=== PATIENT | female | born 1940 | race Caucasian/White ===

== ENCOUNTER → 2023-07-28 11:07 | Outpatient (REF) | payer OTHER, SELFPAY | LOC: RAD 11:07 | PROVIDERS: ATTENDING PHYSICIAN Nurse Practitioner Family | DX: M79.604 Pain in right leg (principal) | CPT/HCPCS: 73523; 73564 ==

== ENCOUNTER 2024-02-12 15:20 | Observation (INO) | payer OTHER, SELFPAY ==
--- NOTE | 2024-02-12 09:57 | ED.GENMED ---
History of Present Illness
General
Chief Complaint: Fall
Source: patient
Exam Limitations: none
Time Seen by Provider: 02/12/24 09:57
Nursing documentation reviewed up to this point in time: agreed with
History of Present Illness
History of Present Illness:
Patient is an 83-year-old female brought to the ER by EMS. Patient reports she had a mechanical fall . Patient reports he was brushing her teeth at 2:30 in the morning when her legs gave out. She fell back. She believes she landed on her side
but may have hit her head she denies loss of consciousness she called EMS but did not want come to the ER at that time. She complains now of pain to the left knee. She feels mildly sore to the left head. She is on Eliquis.
She does report that 10 days ago she did drop a case of books on her left foot and she does notice that it is mildly red. She was seen by her family doctor for this yesterday
Past History
Past History
ED Past Medical History: HTN, Hypothyroidism and Other (Knee pain)
ED Past Surgical History: Cholecystectomy
Social History
Tobacco: Former smoker
Alcohol: None
Drug: None
Personal:
Living: alone
Review of Systems
Review of Systems
Allergies reviewed?: Yes
All Other Systems: ROS reviewed and negative except as documented in HPI and ROS
Constitutional: Reports no symptoms; Denies fever, fatigue or chills
Musculoskeletal: Reports other (Patient complains of left knee pain)
Skin: Reports no symptoms
Neurological: Reports other (sore to back of head )
Psychiatric: Reports no symptoms
Phy Exam
General Physical Exam
General Presentation: no apparent distress
General age: appears stated age
General Skin: warm and dry
General Habitus: elderly
General Mental: alert
General Hydration: appears well hydrated
Neurological Exam
Neurological Exam: alert and oriented x3
Musculoskeletal Exam
Musculoskeletal Exam: other (Left knee appears swollen pain with range of motion; toes/left foot red in color )
Course
Orders/Labs/Results
Orders:
Orders
02/12/24 10:08
CT Cervical Spine W/o Iv Contr Urgent
Comment:
Reason For Exam: trauma
CT Head W/o Iv Contrast Urgent
Comment:
Reason For Exam: trauma
02/12/24 10:56
Knee, Left 4 or More Views [CR Knee - Left 4 Or More View*] Urgent
Comment:
Reason For Exam: trauma
02/12/24 13:12
Complete Blood Count/With Diff Urgent
Comprehensive Metabolic Panel Urgent
02/12/24 13:15
Case Management Consult ONCE
Case Management Consult: Discharge Planning
Requested By:: PT/FAMILY
Comment: pt lives alone ; daughter would like someone to talk to her about going into move assisted
living
Abnormal Lab Results
02/12/24
13:12
RDW 14.7 H %
(11.5-14.5)
MPV 11.0 H fL
(7.4-10.4)
Lymphocytes % 17.6 L %
(20.5-51.1)
BUN 20 H mg/dl
(7-17)
Glucose 108 H mg/dl
(70-99)
02/12/24 13:12
02/12/24 13:12
Vital Signs
Initial and Last Documented VS:
Initial Vital Signs
Temp Pulse Resp BP Pulse Ox
98.1 F 82 16 148/92 94
02/12/24 10:04 02/12/24 10:04 02/12/24 10:04 02/12/24 10:04 02/12/24 10:04
Last Documented Vital Signs
Temp Pulse Resp BP Pulse Ox
98.1 F 80 16 152/97 96
02/12/24 10:04 02/12/24 12:00 02/12/24 12:00 02/12/24 12:00 02/12/24 13:01
MDM/Problems Addressed
Differential Diagnosis Includes:
Not limited to head injury, intracranial hemorrhage, knee fracture versus knee sprain
MDM/Problems Addressed:
Patient is an 83-year-old female who was brought by EMS. Patient lives alone and describes mechanical fall around 231 while brushing her teeth. EMS did come to scene at that time but she did not want to come to the ER. She however presented to
the ER because she was unable to bear weight. She complains of left knee pain. She is obvious swelling on exam. She complains of mild soreness to head. She is on Eliquis she presents awake alert no acute distress able to give full history. CT
head negative. CT neck negative. X-ray shows large left knee joint effusion and chronic osteoarthritis. Patient also has redness to the toes. She reports was recently diagnosed with fungal infection by family doctor. She is not on oral
antibiotics. She denies any fever or chills. White count normal labs unremarkable
Patient was given a knee immobilizer here in the ER however with assistance of walker still unable to bear weight will require admission for ambulatory dysfunction. Daughter did call and is concerned the patient is living on her own and does
request that case management be consulted for discharge planning
Chronic conditions affecting care:
Patient on Eliquis history of CAD hypertension hyperlipidemia [place]
*Radiology
Radiology exam reviewed: radiology read reviewed
*Pulse Oximetry
Patient hypoxic: no
*Critical Care Note
Total Time (30-74mins, 75-104mins- exclusive of procedures): Not Applicable
ED Attending Note
-
Portions of this chart may have been created with voice recognition software.� Occasional wrong word or��sound alike� substitutions may have occurred due to the inherent limitations of voice recognition software.
Discharge Plan
Departure
Patient Disposition: Admit
Date of Disposition: 02/12/24
Time of Disposition: 14:12
Admit to: Med/Surg
Admit to doctor: hospitalist
Presentation/result/management discussed w/ accepting MD/DO: Hospitalist
Patient with high blood pressure during this ER visit?: No
Condition: Fair
Covid-19: Not Applicable
Discharge Problem:
Knee sprain, Ambulatory dysfunction
Prescriptions:
No Action
levothyroxine 75 MCG tablet
75 mcg PO DAILY
pantoprazole 40 MG tablet,delayed release (DR/EC)
40 mg PO DAILY Qty: 30 2RF
potassium chloride [Klor-Con M20] 20 MEQ tablet,ER particles/crystals
20 meq PO QPM
multivitamin with folic acid [Tab-A-Marybeth] 1 TABLET tablet
1 tab PO MOWEFR@1800
furosemide 40 MG tablet
40 mg PO DAILY@1200
atorvastatin 40 MG tablet
40 mg PO QPM
acetaminophen [Genapap] 325 MG tablet
650 mg PO QIDPRN PRN (Reason: mild pain)
carvedilol 3.125 MG tablet
3.125 mg PO BID
docusate sodium [Colace] 100 MG capsule
100 mg PO BIDPRN PRN (Reason: constipation)
lisinopril 2.5 MG tablet
2.5 mg PO DAILY@1200
polyethylene glycol 3350 17 GRAMS powder in packet
17 grams PO DAILY 0RF
oxycodone-acetaminophen 5 MG/325 MG tablet
1 tab PO Q4HPRN PRN (Reason: severe pain) Qty: 15 0RF
apixaban [Eliquis] 5 MG tablet
5 mg PO BID Qty: 70 0RF
Rx Instructions:
2 tabs (10mg) twice daily until 11/8 am, then 1 tab (5mg) twice daily starting 11/8 pm.
aspirin 81 MG tablet,delayed release (DR/EC)
81 mg PO DAILY Qty: 30 0RF
cyclobenzaprine 10 MG tablet
5 mg PO TID 0RF
loratadine 10 MG tablet
10 mg PO DAILY 0RF
prednisone 20 mg tablet
40 mg PO DAILY 5 Days Qty: 10 0RF
Referrals:
Alyssa Miller DO [Family Provider] -
Interventions
Interventions:
*Risk Screen - Suicide Last Done: 02/12/24 10:04
*General Assessment Last Done: 02/12/24 10:04
*Neglect/Abuse Screening Last Done: 02/12/24 10:04
ED- Fall Risk Assessment Last Done: 02/12/24 10:38
*ED COVID-19 Vaccine History Last Done: 02/12/24 10:38
ED-Musculoskeletal Assessment Last Done: 02/12/24 10:37
ED- Neurological Assessment Last Done: 02/12/24 10:37
ED-Skin Assessment Last Done: 02/12/24 10:37
Discharge Date and Time
Print Language: SETSWANA
[2024-02-12 10:04] VITALS: BP 148/92
[2024-02-12 12:00] VITALS: BP 152/97
[2024-02-12 13:24] LABS: % Basophils 0.6 % (0-2); % Eosinophils 2.2 % (0-6); % Immature Granulocytes 0.2 % (0-0.5); % Lymphocytes 17.6 % (20.5-51.1); % Monocytes 6.3 % (1.7-9.3); % Neutrophils 73.1 % (42.2-75.2); Absolute Basophils 0.1 10^3/uL (0-0.2); Absolute Eosinophils 0.2 10^3/uL (0-0.7); Absolute Lymphocytes 1.5 10^3/uL (1.2-3.4); Absolute Monocytes 0.5 10^3/uL (0.1-0.6); Absolute Neutrophils 6.3 10^3/uL (1.4-6.5); Hematocrit 39.4 % (37.0-47.0); Hemoglobin 13.2 g/dL (12.0-16.0); Mean Corp Hgb Conc. 33.5 g/dL (33.0-37.0); Mean Corpuscular Hgb 30.7 pg (27.0-31.0); Mean Corpuscular Volume 91.6 fL (81.0-99.0); Nucleated Red Blood Cells % 0 %; Platelet Count 155 10^3/uL (130-400); Red Cell Dist. Width 14.7 % (11.5-14.5); White Blood Cell Count 8.6 10^3/uL (4.8-10.8)
[2024-02-12 13:41] LABS: ALT (SGPT) 19 U/L (0-35); AST (SGOT) 27 U/L (14-36); Albumin 3.9 g/dl (3.5-5.0); Alkaline Phosphatase 103 U/L (38-126); Blood Urea Nitrogen 20 mg/dl (7-17); Calcium 9.7 mg/dl (8.4-10.2); Carbon Dioxide 28 mmol/L (22-30); Chloride 105 mmol/L (98-107); Glucose 108 mg/dl (70-99); Potassium 3.7 mmol/L (3.5-5.1); Sodium 142 mmol/L (135-145); Total Bilirubin 1.1 mg/dl (0.2-1.3); Total Protein 6.3 g/dl (6.3-8.2); eGFR > 60.00
[2024-02-12 14:00] VITALS: BP 118/83
--- NOTE | 2024-02-12 14:48 | HPS.HSE ---
Family Physician
-
Family Physician: Alyssa Miller
Chief Complaint
-
Fall
History of Present Illness
83-year-old woman who had a mechanical fall. She reports that she was brushing her teeth at 2:30 in the morning when her legs gave out. She states that she landed on her side, and she denies loss of consciousness. She called EMS but did not want
come to the ER at that time. For family later brought her in. She complains now of pain to the left knee. She is on Eliquis. She also reports that 10 days ago she dropped a case of books on her left foot and since than it is red. She was seen
by her family doctor for this yesterday, and was prescribed an antifungal for it. She reports that she urinates often because of being on an diuretic.
Medical History
Past Medical History
Past Medical History: Reports Other
Additional Past Medical History:
Essential HTN,
Hypothyroidism
Knee pain
Cholecystectomy
Ambulatory dysfunction
Acute deep vein thrombosis (DVT) of popliteal vein of left lower extremity
Primary osteoarthritis of both knees
Uses walker
Hyperlipemia
Cardiomyopathy
[place], acute, non ST segment elevation
Past Surgical History: Reports None
Social History
Tobacco: Non-smoker
Alcohol: None
Drug: None
Living: Alone
Family History
Family History: Not pertinent
Allergies / Home Medications
Allergies reflects when Allergies were last updated in [facility].
Home Medications with original date entered in [facility]
Allergy/Medication List:
Allergies
Allergy/AdvReac Type Severity Reaction Status Date / Time
codeine Allergy Unknown Verified 02/12/24 10:09
tramadol Allergy Unknown Verified 02/12/24 10:09
Home Medications
levothyroxine 75 mcg tablet 75 mcg PO DAILY Thyroid 06/22/17
atorvastatin 40 mg tablet 40 mg PO QPM High cholesterol 03/31/21
carvedilol 3.125 mg tablet 3.125 mg PO BID Blood pressure 03/31/21
furosemide 40 mg tablet 20 mg PO BID Fluid retention/Swelling 03/31/21
lisinopril 2.5 mg tablet 2.5 mg PO DAILY@1200 Blood pressure 03/31/21
multivitamin with folic acid 400 mcg tablet (Tab-A-Marybeth) 1 tab PO MOWEFR@1800 Supplement 03/31/21
aspirin 81 mg tablet,delayed release 81 mg PO DAILY #30 tabs 04/01/21
apixaban 5 mg tablet (Eliquis) 2.5 mg PO BID 02/12/24
ascorbic acid (vitamin C) 500 mg chewable tablet (Vitamin C) 1,000 mg PO DAILY 02/12/24
biotin 10,000 mcg chewable tablet (Hair, Skin and Nails (biotin)) 10,000 mcg PO DAILY 02/12/24
cholecalciferol (vitamin D3) 25 mcg (1,000 unit) tablet (Vitamin D3) 25 mcg PO DAILY 02/12/24
methenamine-sodium salicylate 162 mg-162.5 mg tablet (AZO Urinary Tract Defense) 1 tab PO DAILY 02/12/24
potassium chloride 20 mEq tablet,extended release 20 meq PO QPM 02/12/24
terbinafine HCl 250 mg tablet 250 mg PO DAILY 02/12/24
vitamins A,C,W-eyiv-xlteov 2,148 mcg-113 mg-45 mg-17.4 mg tablet (PreserVision AREDS) 1 tab PO BID 02/12/24
Review of Systems
-
History Source: Patient
A 12 point ROS was completed and negative except as noted: Yes
Musculoskeletal: Reports See HPI
Physical Exam
Vital Signs
Vital Signs
Temp Pulse Resp BP Pulse Ox
98.1 F 85 16 118/83 94
02/12/24 10:04 02/12/24 14:17 02/12/24 14:17 02/12/24 14:00 02/12/24 14:15
Physical Exam
General: Well Developed, Well Nourished, No Apparent Distress and Obese
HEENT: NormoCephalic, Nose Appears Normal and Ears Appear Normal
Respiratory: Clear
Cardiac: S1/S2 and Regular Rhythm
GI: Soft, Non Tender and Non Distended
Musculoskeletal: No Clubbing, No Cyanosis and No Edema
Skin: Warm, Dry and Rash (red toes on left foot)
Neuro: Awake, Alert and Oriented
Psych: Calm
Laboratory Results
-
02/12/24 13:12
02/12/24 13:12
Laboratory Results
Total Bilirubin 1.1 mg/dl (0.2-1.3) 02/12/24 13:12
AST 27 U/L (14-36) 02/12/24 13:12
ALT 19 U/L (0-35) 02/12/24 13:12
Alkaline Phosphatase 103 U/L (38-126) 02/12/24 13:12
Data Reviewed
-
Lab Data: Labs Reviewed by me
Impression/Plan
-
IMPRESSION:
83 woman with ambulatory disfunction. She normally walks with a walker. She fell last night when not using her walker. Her knee is swollen and sumner cannot walk.
PLAN:
1. ambulatory dysfunction
PT consult
Rehab placement likely needed
2. Recent foot injury
Continue outpt plan
Full code
VCD for DVTp
--- NOTE | 2024-02-12 15:18 | CM ---
CM met with pt bedside
Pt resides alone in a 2SH with ramp entrance through garage
Pt has a stairglide to 2nd floor
Pt notes independence with her ADLs with use of a WW- she has 2x, one on each floor
Pt is independent with her ADls, she does not drive
Family assist with errands and transport
No financial insecurities
Pt is a 2x resulting in blended family, family daughters ( 3 biological)
Pt notes her sister/Alyssa Buchanan is POA [phone]
Requested copy of POA for chart- noted her family will bring in a copy
CM consulted for assisted living resources- list provided
Conference call with pt and dtr/Natty
Pt's goal is to stay safe at home
Dtr requesting PT/OT and dc planning resources once appropriate
Explained role of CM and responsibilities
CM will continue to follow for dc planning
Discharge Disposition- home, follow for higher needs
[2024-02-12 16:34] VITALS: BP 151/83; BMI 35.3
[2024-02-12] MEDS: TYLENOL 650 MG PO ×2 (17:07→23:43)
[2024-02-12] MEDS: LASIX 20 MG PO (17:07)
[2024-02-12] MEDS: LIPITOR 40 MG PO (17:07)
[2024-02-12] MEDS: KCL 20 MEQ PO (17:07)
--- NOTE | 2024-02-12 17:36 | PTCARENOTE ---
Pt was received from ED at 1630. Pt is AAOx3, VSS. Pt was pulled over to the unit bed. Left knee immobilizer in place. Care plan reviewed and pt in understanding.
[2024-02-12] MEDS: ELIQUIS 2.5 MG PO (19:46)
[2024-02-12] MEDS: COREG 3.125 MG PO (19:46)
[2024-02-12] MEDS: OCUVITE SOFTGEL 1 CAP PO (19:46)
[2024-02-12] MEDS: DESENEX/MITRAZOL/ZEASORB 1 APPLIC TOPICAL (19:48)
[2024-02-12] MEDS: ROXICODONE 5 MG PO ×2 (20:08→23:44)
[2024-02-12 23:54] VITALS: BP 102/56
--- NOTE | 2024-02-13 03:13 | PTCARENOTE ---
earlier in shift pt expressed pain in left knee unrelieved by Tylenol- said she has tolerated oxycodone in the past- security systems installer gave order- given x2- see mar
[2024-02-13] MEDS: SYNTHROID 75 MCG PO (05:16)
[2024-02-13] MEDS: ROXICODONE 5 MG PO ×4 (05:16→19:31)
[2024-02-13] MEDS: LASIX 20 MG PO ×2 (05:16→15:00)
[2024-02-13 06:00] VITALS: BMI 35.5
[2024-02-13] MEDS: ASPIR LOW (ENTERIC COATED) 81 MG PO (07:13)
[2024-02-13] MEDS: COREG 3.125 MG PO ×2 (07:13→19:25)
[2024-02-13] MEDS: OCUVITE SOFTGEL 1 CAP PO ×2 (07:13→19:25)
[2024-02-13] MEDS: VITAMIN C 1000 MG PO (07:13)
[2024-02-13] MEDS: VITAMIN D3 (cholecalciferol) 25 MCG PO (07:13)
[2024-02-13] MEDS: ELIQUIS 2.5 MG PO ×2 (07:14→19:25)
[2024-02-13] MEDS: DESENEX/MITRAZOL/ZEASORB 1 APPLIC TOPICAL ×2 (07:15→19:25)
[2024-02-13 07:55] VITALS: BP 119/75
[2024-02-13 07:59] LABS: Hematocrit 36.9 % (37.0-47.0); Hemoglobin 12.3 g/dL (12.0-16.0); Mean Corp Hgb Conc. 33.3 g/dL (33.0-37.0); Mean Corpuscular Hgb 29.9 pg (27.0-31.0); Mean Corpuscular Volume 89.6 fL (81.0-99.0); Mean Platelet Volume 11.7 fL (7.4-10.4); Platelet Count 161 10^3/uL (130-400); Red Blood Cell Count 4.12 10^6/uL (4.20-5.40); White Blood Cell Count 8.2 10^3/uL (4.8-10.8)
[2024-02-13 08:18] LABS: Blood Urea Nitrogen 18 mg/dl (7-17); Calcium 9.1 mg/dl (8.4-10.2); Carbon Dioxide 27 mmol/L (22-30); Chloride 103 mmol/L (98-107); Estimated Creatinine Clearance 68 ml/min; Glucose 101 mg/dl (70-99); Potassium 4.1 mmol/L (3.5-5.1); Sodium 141 mmol/L (135-145); eGFR > 60.00
--- NOTE | 2024-02-13 09:02 | W.PN.HOSP.TC ---
Today's Communication/Plan
-
Pain control. Ortho consult. X-ray of the foot.
Assessment / Plan
Assessment / Plan
Physical exam:
General: Well Developed, Well Nourished and No Apparent Distress
HEENT: Normocephalic, Atraumatic and Moist Mucous Membranes
Respiratory: Clear to Auscultation; Negative Wheezes, Rales or Rhonchi
Cardiac: Regular Rhythm and S1/S2
GI: Soft, Nontender and Nondistended
Musculoskeletal: Left knee tender, decreased range of motion, no erythema or warmth. No Clubbing, No Cyanosis. Erythema around the toes area, no warmth, mild tenderness.
Neuro: Awake, Alert and Oriented
Psych: Calm
A/P:
Left knee pain and effusion:
Likely osteoarthritis probably trauma related rule out hemarthrosis.
No evidence of septic arthritis
Orthopedic consult-discussed with Ortho via [facility] text
Continue pain control
PT OT eval recommend skilled rehab
automotive sales manager for discharge disposition
Fall and ambulatory dysfunction:
CT of the head unremarkable
PT eval as above
Left foot pain:
Recent trauma to the left foot
Mild erythema unclear if trauma or developing infection but monitor for signs of cellulitis
Started on terbinafine as outpatient for fungal toes
Will obtain an x-ray of the left foot
Hypertension:
Continue home antihypertensives.
Monitor blood pressure and adjust medications accordingly.
Hyperlipidemia:
Continue home statins
CAD:
Continue current anti-ischemic regimen
Chest pain-free
Chronic diastolic CHF:
Continue oral diuretic and potassium replacement
Continue GDMT including beta-blockers and CORRIE inhibitor
Monitor ins and outs and daily weight
DVT:
Continue anticoagulation
Hypothyroidism:
Continue thyroid replacement
DVT prophylaxis:
Eliquis
CODE STATUS:
Full code
Anticipated Discharge: 24 - 48 hours
Subjective/Interval History
-
Date of Service: February 13, 2024
Patient complains of left knee pain and also to minor degree the right knee as well. Afebrile
Objective Data
-
Labs:
Laboratory Results
02/13/24
06:24
WBC 8.2
Hgb 12.3
Hct 36.9 L
Plt Count 161
Sodium 141
Potassium 4.1
Chloride 103
Carbon Dioxide 27
BUN 18 H
Creatinine 0.8
Glucose 101 H
Calcium 9.1
Vital Signs:
Vital Signs
Temp Pulse Resp BP Pulse Ox
97.9 F 63 16 119/75 92
02/13/24 07:55 02/13/24 07:55 02/13/24 07:55 02/13/24 07:55 02/13/24 07:55
I&O
02/12/24 02/13/24 02/14/24
06:59 06:59 06:59
Intake Total 960 / 960
Output Total 200 / 200
Balance 760 / 760
[2024-02-13] MEDS: ZESTRIL 2.5 MG PO (11:29)
[2024-02-13 12:45] VITALS: BP 133/76; PULSE 71; O2SAT 96
[2024-02-13 12:58] VITALS: BP 133/76; PULSE 70; O2SAT 96
[2024-02-13] MEDS: SENOKOT-S 1 TABLET PO (14:06)
[2024-02-13 15:00] VITALS: BP 111/62
[2024-02-13] MEDS: TYLENOL 1000 MG PO (17:29)
[2024-02-13] MEDS: LIPITOR 40 MG PO (17:30)
[2024-02-13] MEDS: KCL 20 MEQ PO (17:30)
[2024-02-13 23:14] VITALS: BP 117/55
--- NOTE | 2024-02-13 23:31 | PTCARENOTE ---
pt in deep sleep with shallow breathing- consistently 88-90% on room air- 2 liters oxygen placed
[2024-02-14] MEDS: ROXICODONE 5 MG PO ×2 (00:20→05:41)
[2024-02-14] MEDS: TYLENOL 1000 MG PO ×3 (00:20→17:23)
[2024-02-14 03:00] VITALS: BP 120/87
[2024-02-14] MEDS: SYNTHROID 75 MCG PO (04:57)
[2024-02-14] MEDS: LASIX 20 MG PO ×2 (05:41→16:18)
[2024-02-14 06:00] VITALS: BMI 35.6
--- NOTE | 2024-02-14 06:32 | PTCARENOTE ---
Addendum entered by Omid Adames RN 02/14/24 07:00:
pt feels better- having some belching- no more chest pressure
Original Note:
pt c/o chest pressure in middle of chest vs indigestion- said she had indigestion like this her last NV. reported to cellophane wrapping examiner- ekg done along with cardiac enamel- cellophane wrapping examiner also ordered Protonix and maalox- and evaluated ekg- labs still pending-bp 167/81
[2024-02-14] MEDS: MAALOX 30 ML PO (06:39)
[2024-02-14] MEDS: PROTONIX 40 MG PO (06:57)
--- NOTE | 2024-02-14 06:57 | CON.ORTHO ---
Consultation
-
Date/Time Consultation Requested: 02/13/2024 @ 9:32 AM
Date/Time Consultation Performed: 02/14/2024 @ 6:30 AM
Requesting Provider: Carl Cloud MD
Performing Provider: Jaiden Mcallister PA-C for Dr. Antony Good
Reason for Consultation: Left Knee Pain and Effusion
Consultation - Orthopedics
History
Orthopedic Surgery Note
CC: Left Knee Pain and Effusion
HPI: The patient is a 83-year-old female with left knee pain and swelling. The patient reports sustaining a mechanical fall on 02/11/2024. She reports that she was brushing her teeth at 2:30 in the morning when her legs gave out. She
states that she landed on her side. She reports that she did not land directly onto her knee. She reports gradual onset of left knee pain after her fall. She reports that she may have been crawling on her knees attempting to get off of the ground.
She denies any loss of consciousness. Patient lives alone. She ambulates with a walker for assistance. She called EMS and was transferred to ED due to inability to bear weight. Patient is on Eliquis. She reports a history of osteoarthritis
about her bilateral knees. X-rays were performed and were negative for acute fracture or dislocation. She denies any groin pain. She denies any hip pain. Orthopedic surgery was consulted regarding left knee pain and swelling. She denies any
constitutional symptoms.
PMH/PSH: Essential HTN, Hypothyroidism, Knee pain, Cholecystectomy, Ambulatory dysfunction, Acute deep vein thrombosis (DVT) of popliteal vein of left lower extremity, Primary osteoarthritis of both knees, Uses walker, Hyperlipemia, Cardiomyopathy,
[place], acute, non ST segment elevation.
Medications: Reviewed.
Family History: Family history was reviewed. Noncontributory.
Social history: Nonsmoker, no illicit drugs
Exam
General appearance: Pleasant. No acute distress.
Head: Normocephalic/atraumatic
Nose: No lesions or discharge.
Skin: No obvious rashes or open wounds about left knee
Lungs: No audible wheezing, no cough or sputum production
Musculoskeletal:
LLE (Left Knee):
Physical examination of the left knee reveals knee immobilizer intact. This was taken down for further evaluation. Skin is intact without open wounds. She is able to perform SLR. Moderate-sized intra-articular effusion appreciated. No erythema,
warmth, or ecchymosis. Active range of motion 0 to 90 degrees. Diffuse TTP about left knee. Positive medial joint line tenderness. Positive lateral joint line tenderness. No hip pain with logroll. Calf is soft and nontender. Patient is
neurovascularly intact distally.
Imaging:
Xrays: CR Knee - LEFT 4 or More View* was obtained at [facility] on 02/12/2024 and was made available for my review today. Impression: 1) Large left knee joint effusion. 2) Severe chronic osteoarthritis in the lateral and patellofemoral
compartments. 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 4) Diffuse bone demineralization.
Assessment: 83-year-old female with left knee pain and effusion s/p mechanical fall. Patient is on Eliquis.
Plan:
- After obtaining verbal consent, and confirming laterality, the patient's LEFT knee was sterilely prepped with alcohol and with a 60 cc syringe and 18-gauge needle approximately 35 cc of milena blood was aspirated.
- Hemarthrosis likely secondary to trauma exacerbated by Eliquis use vs. internal derangement secondary to mechanical fall.
- Her left knee is diffusely tender to palpation. She is unable to weight-bear. Will proceed with CT scan of the left knee without contrast to rule out occult fracture. Recommend continuing with knee immobilizer until CT scan is completed and
reviewed.
- Orthopedic surgery will continue to follow along. Please reach out with any questions or concerns.
Allergies / Home Medications
Allergy/AdvReac Type Severity Reaction Status Date / Time
codeine Allergy Unknown Verified 02/12/24 10:09
tramadol Allergy fainting Verified 02/12/24 16:15
�Medication �Instructions �Recorded
levothyroxine 75 mcg tablet 75 mcg PO DAILY Thyroid 06/22/17
atorvastatin 40 mg tablet 40 mg PO QPM High cholesterol 03/31/21
carvedilol 3.125 mg tablet 3.125 mg PO BID Blood pressure 03/31/21
furosemide 40 mg tablet 20 mg PO BID Fluid 03/31/21
retention/Swelling
lisinopril 2.5 mg tablet 2.5 mg PO DAILY@1200 Blood pressure 03/31/21
multivitamin with folic acid 400 1 tab PO MOWEFR@1800 Supplement 03/31/21
mcg tablet (Tab-A-Marybeth)
aspirin 81 mg tablet,delayed 81 mg PO DAILY #30 tabs 04/01/21
release
acetaminophen 650 mg 1,300 mg PO [id number] PRN mild pain 02/12/24
tablet,extended release
apixaban 5 mg tablet (Eliquis) 2.5 mg PO BID Blood Clot 02/12/24
Prevention/Tx
ascorbic acid (vitamin C) 500 mg 1,000 mg PO DAILY Supplement 02/12/24
chewable tablet (Vitamin C)
biotin 10,000 mcg chewable tablet 10,000 mcg PO DAILY Supplement 02/12/24
(Hair, Skin and Nails (biotin))
cholecalciferol (vitamin D3) 25 25 mcg PO DAILY Supplement 02/12/24
mcg (1,000 unit) tablet (Vitamin
D3)
methenamine-sodium salicylate 162 1 tab PO DAILY Urinary Issue 02/12/24
mg-162.5 mg tablet (AZO Urinary
Tract Defense)
potassium chloride 20 mEq 20 meq PO QPM Electrolyte Repletion 02/12/24
tablet,extended release
terbinafine HCl 250 mg tablet 250 mg PO DAILY Infection 02/12/24
vitamins A,C,S-mldy-jvwkzl 2,148 1 tab PO BID Supplement 02/12/24
mcg-113 mg-45 mg-17.4 mg tablet
(PreserVision AREDS)
Vital Signs / Lab Results
Temp Pulse Resp BP Pulse Ox
98.1 F 85 16 117/55 95
02/13/24 23:14 02/13/24 23:14 02/13/24 23:14 02/13/24 23:14 02/13/24 23:31
02/13/24 06:24
[2024-02-14 06:59] LABS: Blood Urea Nitrogen 24 mg/dl (7-17); Calcium 8.8 mg/dl (8.4-10.2); Carbon Dioxide 30 mmol/L (22-30); Chloride 101 mmol/L (98-107); Estimated Creatinine Clearance 49 ml/min; Glucose 94 mg/dl (70-99); Magnesium 1.8 mg/dl (1.6-2.3); Potassium 4.2 mmol/L (3.5-5.1); Sodium 139 mmol/L (135-145); eGFR 49.86
[2024-02-14 07:04] LABS: Troponin I < 0.012 ng/ml
[2024-02-14 07:30] VITALS: BP 126/75
[2024-02-14] MEDS: ELIQUIS 2.5 MG PO (07:46)
[2024-02-14] MEDS: VITAMIN C 1000 MG PO (07:46)
[2024-02-14] MEDS: COREG 3.125 MG PO ×2 (07:46→19:58)
[2024-02-14] MEDS: OCUVITE SOFTGEL 1 CAP PO ×2 (07:46→19:58)
[2024-02-14] MEDS: DESENEX/MITRAZOL/ZEASORB 1 APPLIC TOPICAL ×2 (07:47→19:58)
[2024-02-14] MEDS: ASPIR LOW (ENTERIC COATED) 81 MG PO (07:47)
[2024-02-14] MEDS: VITAMIN D3 (cholecalciferol) 25 MCG PO (07:47)
[2024-02-14 08:26] VITALS: BP 126/75
[2024-02-14] MEDS: SENOKOT-S 1 TABLET PO (11:51)
[2024-02-14] MEDS: ZESTRIL 2.5 MG PO (11:51)
--- NOTE | 2024-02-14 12:11 | CM ---
CM spoke with Thelma's daughter, Elisha, via telephone. She does not want her mother returning directly home, as she is not safe to be alone at this time and needs rehabilitation. SNF is appropriate and recommended by PT/OT.
CM attempted to meet with Thelma, however unable to at the time; will return later when Thelma is able to converse and discuss d/c plan.
Per daughter, Thelma has been at [facility] in the past. Referral made for consideration. Pt's primary insurance is [employer], so Alfredo Akers will look at her coverage to determine if she has an out of network benefit and can be considered for admission.
CM to continue to follow.
--- NOTE | 2024-02-14 12:56 | W.PN.UPDATE ---
Update Note
Progress Note Update
CT scan negative for occult fracture involving the left knee. Recommend PT/OT as tolerated. Pain control per primary team. May discontinue knee immobilizer. She may follow-up with Orthopedics as an outpatient for her left knee osteoarthritis.
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 Differential diagnosis includes atypical osteoporosis and osteolytic metastasis. Recommend work-up per primary team.
--- NOTE | 2024-02-14 14:40 | W.PN.HOSP.TC ---
Today's Communication/Plan
-
see note
Assessment / Plan
Assessment / Plan
1. Left knee hemarthrosis associated with Eliquis use
Mechanical fall
-Underwent bedside arthrocentesis by Ortho team and drainage of 35 cc of milena blood
-Likely traumatic hemarthrosis with Eliquis use
-Follow-up CT of knee showing some arthritic changes and some diffuse medullary lytic lesions
-Ortho surgery cleared for weightbearing as tolerated on left knee, likely will require rehab placement due to pain limiting weight bearing
2. Left foot pain:
-Recent trauma to the left foot
-Mild erythema unclear if trauma or developing infection but monitor for signs of cellulitis
-Started on terbinafine as outpatient for fungal toes
-Left foot xr did not show any fracture
3. Lytic lesion of bone
-Incidental finding on CT scan of left knee
-Full body bone scan ordered
-No previous history of malignancy except small skin cancer
-Oncology evaluation requested as well
4. Essential Hypertension:
-Continue home antihypertensives.
-Monitor blood pressure and adjust medications accordingly.
5. h/o LE DVT
- in and has been on eliquis after that
Hyperlipidemia
CAD
Chronic diastolic CHF - no signs of flare up
Hypothyroidism:
DVT prophylaxis:Eliquis
CODE STATUS:Full code
Total time spent : 51 mins
Anticipated Discharge: 24 - 48 hours
Subjective/Interval History
-
Date of Service: February 14, 2024
Having left knee pain
Complaining of left foot pain as well
Afebrile overnight
Objective Data
-
Labs:
Laboratory Results
02/14/24
06:30
Sodium 139
Potassium 4.2
Chloride 101
Carbon Dioxide 30
BUN 24 H
Creatinine 1.1 H
Glucose 94
Calcium 8.8
Vital Signs:
Vital Signs
Temp Pulse Resp BP Pulse Ox
97.4 F 70 24 106/57 92
02/14/24 07:30 02/14/24 11:51 02/14/24 07:30 02/14/24 11:51 02/14/24 07:30
I&O
02/13/24 02/14/24 02/15/24
06:59 06:59 06:59
Intake Total 960 / 960 1800 / 1800
Output Total 200 / 200 200 / 200
Balance 760 / 760 1600 / 1600
Review of Systems
-
Respiratory: Reports No Symptoms
Cardiac: Reports No Symptoms
Abdomen/GI: Reports No Symptoms
Physical Exam
-
General: Comfortable
HEENT: Negative Oxygen
Respiratory: Clear to Auscultation
Cardiac: Regular Rhythm and S1/S2; Negative Murmur or Rub
GI: Soft, Nontender and Nondistended
Musculoskeletal: No Edema
Neuro: Awake, Alert, Oriented, No Motor Deficits and Nonfocal/Grossly Intact
Psych: Calm
[2024-02-14 15:00] VITALS: BP 120/87
[2024-02-14] MEDS: KCL 20 MEQ PO (17:21)
[2024-02-14] MEDS: THERAGRAN 1 TABLET PO (17:21)
[2024-02-14] MEDS: LIPITOR 40 MG PO (17:21)
[2024-02-14 23:11] VITALS: BP 118/68
[2024-02-15] MEDS: TYLENOL 1000 MG PO ×3 (00:12→17:29)
[2024-02-15] MEDS: SYNTHROID 75 MCG PO (05:58)
[2024-02-15 06:00] VITALS: BMI 35.6
[2024-02-15] MEDS: LASIX 20 MG PO ×2 (06:24→15:57)
[2024-02-15 07:27] VITALS: BP 149/75
[2024-02-15 07:53] LABS: Hematocrit 35.5 % (37.0-47.0); Hemoglobin 11.7 g/dL (12.0-16.0); Mean Corpuscular Hgb 29.6 pg (27.0-31.0); Mean Corpuscular Volume 89.9 fL (81.0-99.0); Mean Platelet Volume 11.2 fL (7.4-10.4); Platelet Count 151 10^3/uL (130-400); Red Blood Cell Count 3.95 10^6/uL (4.20-5.40); Red Cell Dist. Width 15.1 % (11.5-14.5); White Blood Cell Count 5.9 10^3/uL (4.8-10.8)
[2024-02-15 08:39] LABS: Blood Urea Nitrogen 21 mg/dl (7-17); Calcium 9.1 mg/dl (8.4-10.2); Carbon Dioxide 30 mmol/L (22-30); Chloride 103 mmol/L (98-107); Estimated Creatinine Clearance 54 ml/min; Glucose 93 mg/dl (70-99); Potassium 4.3 mmol/L (3.5-5.1); Sodium 140 mmol/L (135-145)
[2024-02-15] MEDS: ASPIR LOW (ENTERIC COATED) 81 MG PO (08:53)
[2024-02-15] MEDS: OCUVITE SOFTGEL 1 CAP PO ×2 (08:53→20:40)
[2024-02-15] MEDS: VITAMIN C 1000 MG PO (08:53)
[2024-02-15] MEDS: COREG 3.125 MG PO ×2 (08:54→20:40)
[2024-02-15] MEDS: VITAMIN D3 (cholecalciferol) 25 MCG PO (08:54)
[2024-02-15] MEDS: DESENEX/MITRAZOL/ZEASORB 1 APPLIC TOPICAL ×2 (09:00→20:39)
--- NOTE | 2024-02-15 09:04 | CON.ONC ---
Impression
Impression
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
metastasis.
Plan
Plan
CT showed medullary lytic foci, most pronounced within the visualized distal portion of the femur. Full body bone scan ordered, pending results.
SPEP and FLC ordered, pending results
Status post mechanical fall and arthrocentesis. Continue to monitor for swelling or changes in pain.
Continue medical care per primary team.
Patient History
History of Present Illness
Patient is an 83-year-old female with past medical history of hypertension, hypothyroidism, ambulatory dysfunction, DVT, cardiomyopathy, SC, OA of both knees presenting to [facility] after mechanical fall in the middle of the night. She is
currently on Eliquis. Patient underwent arthrocentesis, with 35 cc of milena blood removed from left knee. CT of knee showing some arthritic changes and some medullary lytic foci, most pronounced within the visualized distal portion of the femur,
but negative for fracture. Ongoing concern of atypical osteoporosis versus osteolytic metastasis.
She reports bilateral swelling in both knees which is now reduced. She reports no nausea, vomiting, diarrhea, change in appetite, shortness of breath, chest pain. She does states she has some constipation. She states she smoked cigarettes when
she was younger, now stopped, drinks only on holidays. She had skin cancer in the right upper arm. Her mother had dermatomyositis, father had a cecal cancer, brother had non-Hodgkin's lymphoma.
Past-Medical/Surgical History
Essential HTN,
Hypothyroidism
Knee pain
Cholecystectomy
Ambulatory dysfunction
Acute deep vein thrombosis (DVT) of popliteal vein of left lower extremity
Primary osteoarthritis of both knees
Hyperlipemia
Cardiomyopathy
SC, acute, non ST segment elevation
Patient Medication
�Medication �Instructions �Recorded �Confirmed �Last Taken �Type
levothyroxine 75 mcg tablet 75 mcg PO DAILY Thyroid 06/22/17 02/12/24 02/11/24 History
atorvastatin 40 mg tablet 40 mg PO QPM High cholesterol 03/31/21 02/12/24 02/11/24 History
carvedilol 3.125 mg tablet 3.125 mg PO BID Blood pressure 03/31/21 02/12/24 02/11/24 History
furosemide 40 mg tablet 20 mg PO BID Fluid 03/31/21 02/12/24 02/11/24 History
retention/Swelling
lisinopril 2.5 mg tablet 2.5 mg PO DAILY@1200 Blood pressure 03/31/21 02/12/24 02/11/24 History
multivitamin with folic acid 400 1 tab PO MOWEFR@1800 Supplement 03/31/21 02/12/24 02/11/24 History
mcg tablet (Tab-A-Marybeth)
aspirin 81 mg tablet,delayed 81 mg PO DAILY #30 tabs 04/01/21 02/12/24 02/11/24 Rx
release
acetaminophen 650 mg 1,300 mg PO [id number] PRN mild pain 02/12/24 02/12/24 02/12/24 History
tablet,extended release
apixaban 5 mg tablet (Eliquis) 2.5 mg PO BID Blood Clot 02/12/24 02/12/24 02/11/24 History
Prevention/Tx
ascorbic acid (vitamin C) 500 mg 1,000 mg PO DAILY Supplement 02/12/24 02/12/24 02/11/24 History
chewable tablet (Vitamin C)
biotin 10,000 mcg chewable tablet 10,000 mcg PO DAILY Supplement 02/12/24 02/12/24 02/11/24 History
(Hair, Skin and Nails (biotin))
cholecalciferol (vitamin D3) 25 25 mcg PO DAILY Supplement 02/12/24 02/12/24 02/11/24 History
mcg (1,000 unit) tablet (Vitamin
D3)
methenamine-sodium salicylate 162 1 tab PO DAILY Urinary Issue 0902/12/24 02/11/24 History
mg-162.5 mg tablet (AZO Urinary
Tract Defense)
potassium chloride 20 mEq 20 meq PO QPM Electrolyte Repletion 02/12/24 02/12/24 02/11/24 History
tablet,extended release
terbinafine HCl 250 mg tablet 250 mg PO DAILY Infection 02/12/24 02/12/24 02/11/24 History
vitamins A,C,K-auad-tobmsy 2,148 1 tab PO BID Supplement 02/12/24 02/12/24 02/11/24 History
mcg-113 mg-45 mg-17.4 mg tablet
(PreserVision AREDS)
Active Medications
Generic Name Dose Route Start Last Admin
Trade Name Freq PRN Reason Stop Dose Admin
Acetaminophen 1,000 mg 02/13/24 17:00 02/15/24 00:12
Acetaminophen 500 Mg Tablet PO 03/12/24 16:59 1,000 mg
Q8H VANNESA Administration
Apixaban 2.5 mg 02/12/24 20:00 02/14/24 07:46
Apixaban (Eliquis) 2.5 Mg Tablet PO 03/11/24 19:59 2.5 mg
BID VANNESA Administration
Ascorbic Acid 1,000 mg 02/13/24 08:00 02/14/24 07:46
Ascorbic Acid 500 Mg Tablet PO 03/12/24 07:59 1,000 mg
DAILY VANNESA Administration
Aspirin 81 mg 02/13/24 08:00 02/14/24 07:47
Aspirin 81 Mg (Enteric Coated) Tablet PO 03/12/24 07:59 81 mg
DAILY VANNESA Administration
Atorvastatin Calcium 40 mg 02/12/24 18:00 02/14/24 17:21
Atorvastatin (Lipitor) 40 Mg Tablet PO 03/11/24 17:59 40 mg
QPM VANNESA Administration
Bisacodyl 10 mg 02/12/24 16:07
Bisacodyl 10 Mg Rectal Suppository RECTAL 03/11/24 16:06
[id number] PRN
constipation
Carvedilol 3.125 mg 02/12/24 20:00 02/14/24 19:58
Carvedilol 3.125 Mg Tablet PO 03/11/24 19:59 3.125 mg
BID VANNESA Administration
Cholecalciferol 25 mcg 02/13/24 08:00 02/14/24 07:47
Cholecalciferol (Vitamin D3) 25 Mcg Tablet (1,000 Units) PO 03/12/24 07:59 25 mcg
DAILY VANNESA Administration
Furosemide 20 mg 02/12/24 17:00 02/15/24 06:24
Furosemide 20 Mg Tablet PO 03/11/24 16:59 20 mg
BID@0600,1600 VANNESA Administration
Levothyroxine Sodium 75 mcg 02/13/24 06:00 02/15/24 05:58
Levothyroxine 75 Mcg Tablet PO 03/12/24 05:59 75 mcg
DAILY@0600 VANNESA Administration
Lisinopril 2.5 mg 02/13/24 12:00 02/14/24 11:51
Lisinopril 2.5 Mg Tablet PO 03/12/24 11:59 2.5 mg
DAILY@1200 VANNESA Administration
Miconazole Nitrate 0 applic 02/12/24 20:00 02/14/24 19:58
Miconazole Powder Bottle TOPICAL 03/11/24 19:59 1 applic
BID VANNESA Administration
Multivitamins Therapeutic 1 tablet 02/14/24 18:00 02/14/24 17:21
Multivitamin Tablet PO 03/13/24 17:59 1 tablet
MOWEFR@1800 VANNESA Administration
Oxycodone HCl 5 mg 02/12/24 19:56 02/14/24 05:41
Oxycodone 5 Mg Regular Release Tablet PO 02/26/24 19:55 5 mg
Q4HPRN PRN Administration
mod-severe pain
Polyethylene Glycol 17 grams 02/12/24 16:07
Polyethylene Glycol Powder 17 Grams Packet PO 03/11/24 16:06
DAILYPRN PRN
constipation
Potassium Chloride 20 meq 02/12/24 18:00 02/14/24 17:21
Potassium Chloride 20 Meq Extended Release Tablet PO 03/11/24 17:59 20 meq
QPM VANNESA Administration
Senna/Docusate Sodium 1 tablet 02/12/24 16:07 02/14/24 11:51
Docusate W/Senna (Fiona-Colace) Tablet PO 03/11/24 16:06 1 tablet
BIDPRN PRN Administration
constipation
Sodium Chloride 0 flush 02/12/24 17:00
Sodium Chloride 0.9% (Flush) Syringe IV 03/11/24 16:59
PER PROTOCOL VANNESA
Terbinafine HCl 250 mg 02/12/24 18:00 02/14/24 07:46
Terbinafine Hcl 250 Mg Tablet PO 02/21/24 08:01 250 mg
DAILY VANNESA Administration
Vitamin C/Vitamin E 1 cap 02/12/24 20:00 02/14/24 19:58
Vit C/Vit E/Lutein/Min/[place]-3 (Ocuvite) Capsule PO 03/11/24 19:59 1 cap
BID VANNESA Administration
Review of Systems
-
Constitutional: Reports Weakness (Knees)
EENT: Reports No Symptoms
Respiratory: Reports No Symptoms
Cardiac: Reports No Symptoms
GI: Reports Constipated
Musculoskeletal: Reports Joint Pain and Joint Swelling
Skin: Reports No Symptoms
Neuro: Reports No Symptoms
Psych: Reports No Symptoms
Physical Exam
-
General: Well Developed, Well Nourished, Comfortable, Conversant and Obese
Pulmonary: Clear and Other (On oxygen)
GI: Soft
Musculoskeletal: No Clubbing, No Cyanosis, No Edema and Other (Swelling of the knee bilaterally)
Skin: Warm and Dry
Psych: Calm
Labs
Lab Results
WBC 5.9 10^3/uL (4.8-10.8) 02/15/24 07:24
RBC 3.95 10^6/uL (4.20-5.40) L 02/15/24 07:24
Hgb 11.7 g/dL (12.0-16.0) L 02/15/24 07:24
Hct 35.5 % (37.0-47.0) L 02/15/24 07:24
MCV 89.9 fL (81.0-99.0) 02/15/24 07:24
MCH 29.6 pg (27.0-31.0) 02/15/24 07:24
MCHC 33.0 g/dL (33.0-37.0) 02/15/24 07:24
RDW 15.1 % (11.5-14.5) H 02/15/24 07:24
Plt Count 151 10^3/uL (130-400) 02/15/24 07:24
MPV 11.2 fL (7.4-10.4) H 02/15/24 07:24
Abs Immat Gran (auto) 0.0 10^3/uL (0-0.05) 02/12/24 13:12
Absolute Neuts (auto) 6.3 10^3/uL (1.4-6.5) 02/12/24 13:12
Absolute Lymphs (auto) 1.5 10^3/uL (1.2-3.4) 02/12/24 13:12
Absolute Monos (auto) 0.5 10^3/uL (0.1-0.6) 02/12/24 13:12
Absolute Eos (auto) 0.2 10^3/uL (0-0.7) 02/12/24 13:12
Absolute Basos (auto) 0.1 10^3/uL (0-0.2) 02/12/24 13:12
Immature Gran % 0.2 % (0-0.5) 02/12/24 13:12
Neutrophils % 73.1 % (42.2-75.2) 02/12/24 13:12
Lymphocytes % 17.6 % (20.5-51.1) L 02/12/24 13:12
Monocytes % 6.3 % (1.7-9.3) 02/12/24 13:12
Eosinophils % 2.2 % (0-6) 02/12/24 13:12
Basophils % 0.6 % (0-2) 02/12/24 13:12
Creatinine 1.0 mg/dL (0.6-1.0) 02/15/24 07:24
Vital Signs
Vital Signs
Temp Pulse Resp BP Pulse Ox
97.6 F 69 20 149/75 97
02/15/24 07:27 02/15/24 07:27 02/15/24 07:27 02/15/24 07:27 02/15/24 07:27
[2024-02-15 10:04] VITALS: BP 106/73; PULSE 72; O2SAT 96
[2024-02-15 10:14] VITALS: BP 106/73; PULSE 73; O2SAT 96
[2024-02-15] MEDS: ZESTRIL 2.5 MG PO (12:16)
--- NOTE | 2024-02-15 13:09 | W.PN.HOSP.TC ---
Today's Communication/Plan
-
bone scan today
rehab placement
Assessment / Plan
Assessment / Plan
1. Left knee hemarthrosis associated with Eliquis use
Mechanical fall
-Underwent bedside arthrocentesis by Ortho team and drainage of 35 cc of milena blood
-Likely traumatic hemarthrosis with Eliquis use
-Follow-up CT of knee showing some arthritic changes and some diffuse medullary lytic lesions
-Ortho surgery cleared for weightbearing as tolerated on left knee, likely will require rehab placement due to pain limiting weight bearing
-Continue holding eliquis for few days
2. Left foot pain:
-Recent trauma to the left foot
-Mild erythema unclear if trauma or developing infection but monitor for signs of cellulitis
-Started on terbinafine as outpatient for fungal toes
-Left foot xr did not show any fracture
3. Lytic lesion of bone
-Incidental finding on CT scan of left knee
-Full body bone scan ordered
-No previous history of malignancy except small skin cancer
-Oncology input noted.
4. Essential Hypertension:
-Continue home antihypertensives.
-Monitor blood pressure and adjust medications accordingly.
5. h/o LE DVT
- in and has been on eliquis after that
Hyperlipidemia
CAD
Chronic diastolic CHF - no signs of flare up
Hypothyroidism:
DVT prophylaxis:Eliquis
CODE STATUS:Full code
Anticipated Discharge: Within 24 hours
Subjective/Interval History
-
Date of Service: February 15, 2024
Left knee pain is better
Still having difficult time getting around
No other new issues reported
Objective Data
-
Labs:
Laboratory Results
02/15/24
07:24
WBC 5.9
Hgb 11.7 L
Hct 35.5 L
Plt Count 151
Sodium 140
Potassium 4.3
Chloride 103
Carbon Dioxide 30
BUN 21 H
Creatinine 1.0
Glucose 93
Calcium 9.1
Vital Signs:
Vital Signs
Temp Pulse Resp BP Pulse Ox
97.6 F 74 20 133/76 97
02/15/24 07:27 02/15/24 12:16 02/15/24 07:27 02/15/24 12:16 02/15/24 08:45
I&O
02/14/24 02/15/24 02/16/24
06:59 06:59 06:59
Intake Total 1800 / 1800 960 / 960
Output Total 200 / 200 1900 / 1900
Balance 1600 / 1600 -940 / -940
Review of Systems
-
Respiratory: Reports No Symptoms
Cardiac: Reports No Symptoms
Abdomen/GI: Reports No Symptoms
Physical Exam
-
General: Comfortable
HEENT: Negative Oxygen
Respiratory: Clear to Auscultation
Cardiac: Regular Rhythm and S1/S2; Negative Murmur or Rub
GI: Soft, Nontender and Nondistended
Musculoskeletal: No Edema and Other (Left foot first/second toe erythema)
Neuro: Awake, Alert, Oriented, No Motor Deficits and Nonfocal/Grossly Intact
Psych: Calm
[2024-02-15 15:05] VITALS: BP 129/64
--- NOTE | 2024-02-15 16:38 | CM ---
CM called [facility] to inquire regarding [employer] coverage and ability to admit for SNF. Per Anupama Colunga, pt does have an out of network benefit with $0 copay for the first 20 days. Starting on day 21 there is a copay, but I was not given the amount
per day.
I spoke with Thelma's daughter to discuss transfer to SNF; daughter was relieved that Thelma can go to [facility] for SNF, as Thelma had been there previously and was agreeable to returning there.
Plan: Transfer to SNF at [facility]. Transport arrangements to be made when bed available; hopefully .
[2024-02-15] MEDS: LIPITOR 40 MG PO (17:29)
[2024-02-15] MEDS: KCL 20 MEQ PO (17:29)
[2024-02-15 23:00] VITALS: BP 128/64
[2024-02-16] MEDS: TYLENOL 1000 MG PO ×3 (00:25→16:11)
--- NOTE | 2024-02-16 05:00 | DOWNTIME ---
There was a [employer] Downtime on 02/16/2024 from 0100 to 02/16/2024 at 0300. Downtime documentation of patient's care, including medication administrations, has been reconciled in the electronic record per guidelines. Refer to the
patient's paper chart under the miscellaneous tab to see printed paper medication records and downtime forms.
[2024-02-16] MEDS: SYNTHROID 75 MCG PO (05:39)
[2024-02-16] MEDS: LASIX 20 MG PO ×2 (05:39→15:43)
[2024-02-16 06:00] VITALS: BMI 35.5
[2024-02-16 07:00] VITALS: BP 123/69
[2024-02-16 07:33] LABS: Hematocrit 36.6 % (37.0-47.0); Hemoglobin 12.1 g/dL (12.0-16.0); Mean Corp Hgb Conc. 33.1 g/dL (33.0-37.0); Mean Corpuscular Hgb 29.4 pg (27.0-31.0); Mean Corpuscular Volume 89.1 fL (81.0-99.0); Mean Platelet Volume 11.3 fL (7.4-10.4); Platelet Count 174 10^3/uL (130-400); Red Blood Cell Count 4.11 10^6/uL (4.20-5.40); Red Cell Dist. Width 15.1 % (11.5-14.5); White Blood Cell Count 6.3 10^3/uL (4.8-10.8)
[2024-02-16 08:13] LABS: Blood Urea Nitrogen 21 mg/dl (7-17); Calcium 9.1 mg/dl (8.4-10.2); Carbon Dioxide 26 mmol/L (22-30); Chloride 105 mmol/L (98-107); Estimated Creatinine Clearance 60 ml/min; Glucose 96 mg/dl (70-99); Potassium 4.2 mmol/L (3.5-5.1); Sodium 141 mmol/L (135-145); eGFR > 60.00
[2024-02-16] MEDS: OCUVITE SOFTGEL 1 CAP PO ×2 (09:06→21:48)
[2024-02-16] MEDS: VITAMIN C 1000 MG PO (09:06)
[2024-02-16] MEDS: ASPIR LOW (ENTERIC COATED) 81 MG PO (09:07)
[2024-02-16] MEDS: COREG 3.125 MG PO ×2 (09:07→21:48)
[2024-02-16] MEDS: VITAMIN D3 (cholecalciferol) 25 MCG PO (09:07)
[2024-02-16] MEDS: DESENEX/MITRAZOL/ZEASORB 1 APPLIC TOPICAL ×2 (09:13→21:48)
--- NOTE | 2024-02-16 09:33 | W.PN.ONC2 ---
Today's Communication / Plan
-
CT showed medullary lytic foci, most pronounced within the visualized distal portion of the femur. Full body bone scan shows degenerative changes.
SPEP and FLC ordered, pending results
Status post mechanical fall and arthrocentesis. Continue to monitor for swelling or changes in pain.
Continue medical care per primary team. Patient to be discharged to rehab.
Impression
Impression
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
metastasis.
Subjective/Objective
Chief Complaint
Oncology follow-up
Subjective
Today patient reports feeling okay. She said she slept poorly and feels fatigued. She has appetite but is experiencing some constipation. She continues to have chronic pain bilaterally in lower extremities but states it is improved since time of
admission.
Vital Signs:
Vital Signs
Temp Pulse Resp BP Pulse Ox
98.7 F 70 14 123/69 91
02/16/24 07:00 02/16/24 09:07 02/16/24 07:00 02/16/24 09:07 02/16/24 07:00
Lab Results:
Laboratory Data
WBC 6.3 10^3/uL (4.8-10.8) 02/16/24 07:03
Hgb 12.1 g/dL (12.0-16.0) 02/16/24 07:03
Plt Count 174 10^3/uL (130-400) 02/16/24 07:03
eGFR > 60.00 02/16/24 07:03
Physical Exam
General: Alert and oriented x 3, conversant, resting comfortably in bed
Review of Systems
Review of Systems
All reviewed and negative unless otherwise stated
Constitutional: Reports Fatigue and Other (Pain bilaterally in lower extremities)
Orders
Orders
Orders From Last 24 Hours
02/15/24 10:50
Protein Electrophoresis Reflex [S] Routine
Serum Free Light Chains [[place]/Lambda FLC Quant] [S] Routine
[2024-02-16] MEDS: ZESTRIL 2.5 MG PO (12:27)
--- NOTE | 2024-02-16 14:17 | W.PN.HOSP.TC ---
Today's Communication/Plan
-
d/c to snf rehab
Assessment / Plan
Assessment / Plan
1. Left knee hemarthrosis associated with Eliquis use
Mechanical fall
-Underwent bedside arthrocentesis by Ortho team and drainage of 35 cc of milena blood
-Likely traumatic hemarthrosis with Eliquis use
-Follow-up CT of knee showing some arthritic changes and some diffuse medullary lytic lesions
-Ortho surgery cleared for weightbearing as tolerated on left knee, requires rehab placement.
-Continue holding eliquis for few days
2. Left foot pain:
-Recent trauma to the left foot
-Mild erythema unclear if trauma or developing infection but monitor for signs of cellulitis
-Started on terbinafine as outpatient for fungal toes
-Left foot xr did not show any fracture
3. Lytic lesion of bone
-Incidental finding on CT scan of left knee
-Full body bone scan showing arthritic change/lytic lesions
-MM panel sent, f/u result
-Oncology input noted.
4. Essential Hypertension:
-Continue home antihypertensives.
-Monitor blood pressure and adjust medications accordingly.
5. h/o LE DVT
- in and has been on eliquis after that
Hyperlipidemia
CAD
Chronic diastolic CHF - no signs of flare up
Hypothyroidism:
DVT prophylaxis:Eliquis
CODE STATUS:Full code
Anticipated Discharge: Within 24 hours
Subjective/Interval History
-
Date of Service: February 16, 2024
Have some left knee pain
No new issues overnight
Reported some sleep disturbance due to Lasix use
Objective Data
-
Labs:
Laboratory Results
02/16/24
07:03
WBC 6.3
Hgb 12.1
Hct 36.6 L
Plt Count 174
Sodium 141
Potassium 4.2
Chloride 105
Carbon Dioxide 26
BUN 21 H
Creatinine 0.9
Glucose 96
Calcium 9.1
Vital Signs:
Vital Signs
Temp Pulse Resp BP Pulse Ox
98.7 F 68 14 114/58 94
02/16/24 07:00 02/16/24 12:27 02/16/24 07:00 02/16/24 12:27 02/16/24 13:19
I&O
02/15/24 02/16/24 02/17/24
06:59 06:59 06:59
Intake Total 960 / 960 480 / 480
Output Total 1900 / 1900 1500 / 1500
Balance -940 / -940 -1020 / -1020
Review of Systems
-
Respiratory: Reports No Symptoms
Cardiac: Reports No Symptoms
Abdomen/GI: Reports No Symptoms
Physical Exam
-
General: Comfortable
HEENT: Negative Oxygen
Respiratory: Clear to Auscultation
Cardiac: Regular Rhythm and S1/S2; Negative Murmur or Rub
GI: Soft, Nontender and Nondistended
Musculoskeletal: No Edema and Other (Left foot first/second toe erythema)
Neuro: Awake, Alert, Oriented, No Motor Deficits and Nonfocal/Grossly Intact
Psych: Calm
[2024-02-16 15:00] VITALS: BP 100/50
[2024-02-16 15:29] VITALS: BP 100/50; PULSE 59; O2SAT 94
[2024-02-16 15:33] VITALS: BP 100/50; PULSE 69; O2SAT 94
[2024-02-16] MEDS: KCL 20 MEQ PO (17:41)
[2024-02-16] MEDS: THERAGRAN 1 TABLET PO (17:41)
[2024-02-16] MEDS: LIPITOR 40 MG PO (17:41)
[2024-02-16] MEDS: ROXICODONE 5 MG PO (21:48)
[2024-02-16 23:00] VITALS: BP 129/68
[2024-02-17] MEDS: TYLENOL PO (01:51)
[2024-02-17 05:08] LABS: Free Kappa Light Chains,Quant 28.97 mg/L (3.30-19.40); Free Lambda Light Chains,Quant 13.38 mg/L (5.71-26.30); Kappa/Lambda Fr Light Ratio 2.17 (0.26-1.65)
[2024-02-17] MEDS: SYNTHROID 75 MCG PO (05:16)
[2024-02-17 07:30] VITALS: BP 105/58
[2024-02-17 07:37] LABS: Hematocrit 36.3 % (37.0-47.0); Hemoglobin 12.1 g/dL (12.0-16.0); Mean Corp Hgb Conc. 33.3 g/dL (33.0-37.0); Mean Corpuscular Hgb 30.1 pg (27.0-31.0); Mean Corpuscular Volume 90.3 fL (81.0-99.0); Mean Platelet Volume 11.3 fL (7.4-10.4); Platelet Count 182 10^3/uL (130-400); Red Blood Cell Count 4.02 10^6/uL (4.20-5.40); Red Cell Dist. Width 15.2 % (11.5-14.5); White Blood Cell Count 8.4 10^3/uL (4.8-10.8)
[2024-02-17 08:00] LABS: Blood Urea Nitrogen 23 mg/dl (7-17); Calcium 8.9 mg/dl (8.4-10.2); Carbon Dioxide 27 mmol/L (22-30); Chloride 105 mmol/L (98-107); Estimated Creatinine Clearance 54 ml/min; Glucose 91 mg/dl (70-99); Potassium 4.4 mmol/L (3.5-5.1); Sodium 141 mmol/L (135-145)
[2024-02-17] MEDS: OCUVITE SOFTGEL 1 CAP PO (09:02)
[2024-02-17] MEDS: LASIX 20 MG PO (09:04)
[2024-02-17] MEDS: VITAMIN C 1000 MG PO (09:04)
[2024-02-17] MEDS: VITAMIN D3 (cholecalciferol) 25 MCG PO (09:04)
[2024-02-17] MEDS: TYLENOL 1000 MG PO (09:04)
[2024-02-17] MEDS: COREG 3.125 MG PO (09:05)
[2024-02-17] MEDS: ASPIR LOW (ENTERIC COATED) 81 MG PO (09:05)
[2024-02-17] MEDS: DESENEX/MITRAZOL/ZEASORB 1 APPLIC TOPICAL (09:05)
--- NOTE | 2024-02-17 09:58 | W.PN.ONC2 ---
Today's Communication / Plan
-
CT showed medullary lytic foci, most pronounced within the visualized distal portion of the femur. Full body bone scan ordered, pending results.
SPEP pending. Free light chain kappa elevated at 28.97, free light chain lambda at 13.38, free light chain ratio elevated at 2.17. Values indicate likely inflammatory process. Repeat SPEP/FLC in 2 to 3 months to rule out inflammatory response
versus monoclonal spike.
Status post mechanical fall and arthrocentesis. Continue to monitor for swelling or changes in pain. Discharged to SNF for rehabilitation
Continue medical care per primary team.
Impression
Impression
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
metastasis.
Subjective/Objective
Chief Complaint
Oncology follow-up
Subjective
Vital Signs:
Vital Signs
Temp Pulse Resp BP Pulse Ox
97.9 F 74 18 105/58 91
02/17/24 07:30 02/17/24 09:04 02/17/24 07:30 02/17/24 09:04 02/17/24 07:30
Lab Results:
Laboratory Data
WBC 8.4 10^3/uL (4.8-10.8) 02/17/24 06:50
Hgb 12.1 g/dL (12.0-16.0) 02/17/24 06:50
Plt Count 182 10^3/uL (130-400) 02/17/24 06:50
eGFR 55.90 02/17/24 06:50
--- NOTE | 2024-02-17 10:56 | CM ---
Addendum entered by Briseyda Conti 02/17/24 12:09:
Regarding transport to [facility], GOLDEN contacted Thelma's other daughter, Yesi, via telephone since I was unable to reach Cindy after leaving several voice mail messages. Yesi asked 'Is [facility] kicking her out of the hospital today? Can it
be extended one more day?' I explained that the physician has discharged Thelma, as she no longer required acute hospitalization. I also made her aware that [employer] has approved her transfer to [facility] which is the plan that I have been speaking with
Thelma and her daughter Cindy for the past several days. Yesi connected our call directly to Thelma who was agreeable to calling to make payment for the w/c van transport.
Plan remains for 1PM fruit or nut picker to [facility] SNF.
Addendum entered by Briseyda Conti 02/17/24 11:48:
Transfer to [facility] today.
[facility] Report: [phone]
[facility]
Original Note:
Thelma will be transferred to [facility] today. Daughter contacted earlier today and made aware of plan for transfer to [facility]; she will plan to visit her mother this evening. W/C van transport requested with 1PM fruit or nut picker planned. VM left for
daughter Cindy to make her aware of need to call to pay for w/c van transport - $90 with call to [phone]. I also notified her that her mother would have a private room at [facility].
[2024-02-17 11:29] VITALS: BP 133/85
[2024-02-17] MEDS: ZESTRIL 2.5 MG PO (11:56)
--- NOTE | 2024-02-17 13:25 | CM ---
Call received from Kirstie ([phone]) at [facility], Approved from 02/16 to 02/22, at Sub Acute Level 1, NRD 02/23, fax number [phone], auth [id number], Update to GOLDEN and Anupama at [facility].
--- NOTE | 2024-02-17 14:06 | W.PN.HOSP.TC ---
Today's Communication/Plan
-
d/c snf rehab
Assessment / Plan
Assessment / Plan
1. Left knee hemarthrosis associated with Eliquis use
Mechanical fall
-Underwent bedside arthrocentesis by Ortho team and drainage of 35 cc of milena blood
-Likely traumatic hemarthrosis with Eliquis use
-Follow-up CT of knee showing some arthritic changes and some diffuse medullary lytic lesions
-Ortho surgery cleared for weightbearing as tolerated on left knee, requires rehab placement.
-Continue holding Eliquis for few days, could start early in wednesday
2. Left foot pain:
-Recent trauma to the left foot
-Mild erythema unclear if trauma or developing infection but monitor for signs of cellulitis
-Started on terbinafine as outpatient for fungal toes
-Left foot xr did not show any fracture
3. Lytic lesion of bone
-Incidental finding on CT scan of left knee
-Full body bone scan showing arthritic change/lytic lesions hector, no concern malignancy
-MM panel sent, f/u result
-Oncology input noted.
4. Essential Hypertension:
-Continue home antihypertensives.
-Monitor blood pressure and adjust medications accordingly.
5. h/o LE DVT
- in and has been on eliquis after that
Hyperlipidemia
CAD
Chronic diastolic CHF - no signs of flare up
Hypothyroidism:
DVT prophylaxis:Eliquis
CODE STATUS:Full code
More than 30 minutes spent in discharge including
Final examination of the patient
Summarizing hospital stay
Instructions for continuing care to all relevant caregivers
Preparation of discharge records, prescriptions, and referral forms
Total time spent (in minutes): 39 mins
Anticipated Discharge: Today
Subjective/Interval History
-
Date of Service: February 17, 2024
no new issues overnight
Objective Data
-
Labs:
Laboratory Results
09/19/24
06:50
WBC 8.4
Hgb 12.1
Hct 36.3 L
Plt Count 182
Sodium 141
Potassium 4.4
Chloride 105
Carbon Dioxide 27
BUN 23 H
Creatinine 1.0
Glucose 91
Calcium 8.9
Vital Signs:
Vital Signs
Temp Pulse Resp BP Pulse Ox
97.9 F 75 18 133/85 93
02/17/24 11:29 02/17/24 11:56 02/17/24 11:29 02/17/24 11:56 02/17/24 11:29
I&O
02/16/24 02/17/24 02/18/24
06:59 06:59 06:59
Intake Total 480 / 480
Output Total 1500 / 1500 1400 / 1400
Balance -1020 / -1020 -1400 / -1400
Review of Systems
-
Respiratory: Reports No Symptoms
Cardiac: Reports No Symptoms
Abdomen/GI: Reports No Symptoms
Physical Exam
-
General: Comfortable
HEENT: Negative Oxygen
Respiratory: Clear to Auscultation
Cardiac: Regular Rhythm and S1/S2; Negative Murmur or Rub
GI: Soft, Nontender and Nondistended
Musculoskeletal: No Edema and Other (Left foot first/second toe erythema)
Neuro: Awake, Alert, Oriented, No Motor Deficits and Nonfocal/Grossly Intact
Psych: Calm
== END 2024-02-17 13:00 ==
LOC: 4 EAST ACU 15:20
PROVIDERS: Nurse Practitioner Family; ADMITTING PHYSICIAN Internal Medicine; ATTENDING PHYSICIAN Hospitalist; CONSULT PHYSICIAN Orthopaedic Surgery; EMERGENCY PHYSICIAN Emergency Medicine; FAMILY PHYSICIAN Family Medicine; OTHER PHYSICIAN Internal Medicine Hematology & Oncology
DX: M25.062 Hemarthrosis, left knee (principal); M25.562 Pain in left knee; E03.9 Hypothyroidism, unspecified; W01.10XA Fall on same level from slipping, tripping and stumbling with subsequent striking against unspecified object, initial encounter; Y93.F9 Activity, other caregiving; Y92.002 Bathroom of unspecified non-institutional (private) residence as the place of occurrence of the external cause; I42.9 Cardiomyopathy, unspecified; M17.0 Bilateral primary osteoarthritis of knee; M25.462 Effusion, left knee; I25.10 Atherosclerotic heart disease of native coronary artery without angina pectoris; D68.32 Hemorrhagic disorder due to extrinsic circulating anticoagulants; K59.00 Constipation, unspecified; G89.29 Other chronic pain; R53.83 Other fatigue; M47.812 Spondylosis without myelopathy or radiculopathy, cervical region; S82.142A Displaced bicondylar fracture of left tibia, initial encounter for closed fracture; M81.0 Age-related osteoporosis without current pathological fracture; M77.32 Calcaneal spur, left foot; M21.42 Flat foot [pes planus] (acquired), left foot; I11.0 Hypertensive heart disease with heart failure; I44.7 Left bundle-branch block, unspecified; I50.32 Chronic diastolic (congestive) heart failure; E78.00 Pure hypercholesterolemia, unspecified; R26.2 Difficulty in walking, not elsewhere classified; I25.2 Old myocardial infarction; Z79.890 Hormone replacement therapy; Z79.82 Long term (current) use of aspirin; Z79.52 Long term (current) use of systemic steroids; Z79.01 Long term (current) use of anticoagulants; Z87.891 Personal history of nicotine dependence; Z90.49 Acquired absence of other specified parts of digestive tract; Z60.2 Problems related to living alone; Z88.5 Allergy status to narcotic agent; Z75.1 Person awaiting admission to adequate facility elsewhere; Z86.718 Personal history of other venous thrombosis and embolism
CPT/HCPCS: 70450; 72125; 73564; 73630; 73700; 78306; 80048; 80053; 83521; 83735; 84155; 84165; 84484; 85025; 85027; 93005; 97116; 97163; 97167; 97530; 97535; 99285; A9503; G0378

== ENCOUNTER → 2024-02-21 13:10 | Outpatient (REF) | payer OTHER, SELFPAY ==
[2024-02-21 14:47] LABS: % Basophils 0.9 % (0-2); % Eosinophils 6.7 % (0-6); % Immature Granulocytes 0.2 % (0-0.5); % Lymphocytes 28.8 % (20.5-51.1); % Monocytes 9.4 % (1.7-9.3); ALT (SGPT) 24 U/L (0-35); AST (SGOT) 22 U/L (14-36); Absolute Basophils 0.1 10^3/uL (0-0.2); Absolute Eosinophils 0.5 10^3/uL (0-0.7); Absolute Lymphocytes 2.3 10^3/uL (1.2-3.4); Absolute Monocytes 0.8 10^3/uL (0.1-0.6); Absolute Neutrophils 4.4 10^3/uL (1.4-6.5); Albumin 3.1 g/dl (3.5-5.0); Alkaline Phosphatase 93 U/L (38-126); Blood Urea Nitrogen 35 mg/dl (7-17); Calcium 8.8 mg/dl (8.4-10.2); Carbon Dioxide 27 mmol/L (22-30); Chloride 107 mmol/L (98-107); Glucose 99 mg/dl (70-99); Hematocrit 34.2 % (37.0-47.0); Mean Corp Hgb Conc. 32.2 g/dL (33.0-37.0); Mean Corpuscular Hgb 29.6 pg (27.0-31.0); Mean Corpuscular Volume 91.9 fL (81.0-99.0); Mean Platelet Volume 11.6 fL (7.4-10.4); Nucleated Red Blood Cells % 0 %; Platelet Count 195 10^3/uL (130-400); Potassium 4.5 mmol/L (3.5-5.1); Red Blood Cell Count 3.72 10^6/uL (4.20-5.40); Red Cell Dist. Width 15.3 % (11.5-14.5); Sodium 143 mmol/L (135-145); Total Bilirubin 0.4 mg/dl (0.2-1.3); Total Protein 5.5 g/dl (6.3-8.2); White Blood Cell Count 8.1 10^3/uL (4.8-10.8); eGFR 49.55
== END ==
LOC: OLABP 13:10
PROVIDERS: ATTENDING PHYSICIAN Family Medicine
DX: M25.062 Hemarthrosis, left knee (principal); M25.572 Pain in left ankle and joints of left foot; R26.2 Difficulty in walking, not elsewhere classified; I10 Essential (primary) hypertension
CPT/HCPCS: 36415; 80053; 85025

== ENCOUNTER → 2024-02-22 11:23 | Outpatient (REF) | payer OTHER, SELFPAY ==
[2024-02-22 12:32] LABS: Hematocrit 34.5 % (37.0-47.0); Hemoglobin 11.4 g/dL (12.0-16.0); Mean Corpuscular Hgb 30.6 pg (27.0-31.0); Mean Corpuscular Volume 92.5 fL (81.0-99.0); Mean Platelet Volume 11.9 fL (7.4-10.4); Platelet Count 193 10^3/uL (130-400); Red Blood Cell Count 3.73 10^6/uL (4.20-5.40); Red Cell Dist. Width 15.2 % (11.5-14.5); White Blood Cell Count 7.6 10^3/uL (4.8-10.8)
[2024-02-22 13:42] LABS: ALT (SGPT) 23 U/L (0-35); AST (SGOT) 25 U/L (14-36); Albumin 3.1 g/dl (3.5-5.0); Alkaline Phosphatase 93 U/L (38-126); Blood Urea Nitrogen 34 mg/dl (7-17); Calcium 8.6 mg/dl (8.4-10.2); Carbon Dioxide 25 mmol/L (22-30); Chloride 103 mmol/L (98-107); Glucose 86 mg/dl (70-99); Potassium 4.9 mmol/L (3.5-5.1); Sodium 139 mmol/L (135-145); Total Bilirubin 0.7 mg/dl (0.2-1.3); Total Protein 5.6 g/dl (6.3-8.2); eGFR 55.55
== END ==
LOC: OLABP 11:23
PROVIDERS: ATTENDING PHYSICIAN Family Medicine
DX: M25.062 Hemarthrosis, left knee (principal); R26.2 Difficulty in walking, not elsewhere classified; I11.0 Hypertensive heart disease with heart failure
CPT/HCPCS: 36415; 80053; 85027

== ENCOUNTER → 2024-02-24 18:39 | Outpatient (REF) | payer OTHER, SELFPAY ==
[2024-02-24 20:02] LABS: Urine Albumin Negative (Neg - Trace); Urine Bilirubin Negative (Negative); Urine Character Very Cloudy (Clear); Urine Color Straw; Urine Glucose Negative (Negative); Urine Ketone Negative (Negative); Urine Leukocyte 2+ (Negative); Urine Nitrite Negative (Negative); Urine Occult Blood Trace (Negative); Urine Specific Gravity 1.015 (<1.030); Urine Urobilinogen Negative (Neg - 1+)
[2024-02-24 20:12] LABS: Urine Bacteria Moderate (Negative); Urine Mucus Moderate; Urine Red Blood Cell 0-2 /HPF (0-2); Urine White Cell 16-20 /HPF (0-5)
== END ==
LOC: OLABP 18:39
PROVIDERS: ATTENDING PHYSICIAN Family Medicine
DX: M25.062 Hemarthrosis, left knee (principal); M79.672 Pain in left foot; R26.2 Difficulty in walking, not elsewhere classified; I10 Essential (primary) hypertension; R10.32 Left lower quadrant pain
CPT/HCPCS: 81003; 81015; 87086

== ENCOUNTER → 2024-02-28 10:54 | Outpatient (REF) | payer OTHER, SELFPAY ==
[2024-02-28 11:25] LABS: % Basophils 0.9 % (0-2); % Eosinophils 7.5 % (0-6); % Immature Granulocytes 0.3 % (0-0.5); % Lymphocytes 27.7 % (20.5-51.1); % Monocytes 7.2 % (1.7-9.3); % Neutrophils 56.4 % (42.2-75.2); Absolute Basophils 0.1 10^3/uL (0-0.2); Absolute Eosinophils 0.5 10^3/uL (0-0.7); Absolute Lymphocytes 1.9 10^3/uL (1.2-3.4); Absolute Monocytes 0.5 10^3/uL (0.1-0.6); Absolute Neutrophils 3.9 10^3/uL (1.4-6.5); Hematocrit 35.7 % (37.0-47.0); Hemoglobin 11.8 g/dL (12.0-16.0); Mean Corp Hgb Conc. 33.1 g/dL (33.0-37.0); Mean Corpuscular Hgb 29.9 pg (27.0-31.0); Mean Corpuscular Volume 90.6 fL (81.0-99.0); Mean Platelet Volume 11.3 fL (7.4-10.4); Nucleated Red Blood Cells % 0 %; Platelet Count 234 10^3/uL (130-400); Red Blood Cell Count 3.94 10^6/uL (4.20-5.40); Red Cell Dist. Width 14.6 % (11.5-14.5); White Blood Cell Count 6.8 10^3/uL (4.8-10.8)
[2024-02-28 11:31] LABS: ALT (SGPT) 18 U/L (0-35); AST (SGOT) 19 U/L (14-36); Albumin 3.3 g/dl (3.5-5.0); Alkaline Phosphatase 111 U/L (38-126); Blood Urea Nitrogen 25 mg/dl (7-17); Calcium 8.8 mg/dl (8.4-10.2); Carbon Dioxide 27 mmol/L (22-30); Chloride 105 mmol/L (98-107); Glucose 91 mg/dl (70-99); Potassium 4.4 mmol/L (3.5-5.1); Sodium 141 mmol/L (135-145); Total Bilirubin 0.5 mg/dl (0.2-1.3); Total Protein 5.8 g/dl (6.3-8.2); eGFR > 60.00
== END ==
LOC: OLABP 10:54
PROVIDERS: ATTENDING PHYSICIAN Family Medicine
DX: M25.062 Hemarthrosis, left knee (principal); M79.672 Pain in left foot; I10 Essential (primary) hypertension
CPT/HCPCS: 36415; 80053; 85025

== ENCOUNTER 2024-05-01 12:51 | Inpatient (IN) | payer OTHER, SELFPAY ==
[2024-05-01 09:43] VITALS: BMI 37.6
[2024-05-01 09:44] VITALS: BP 118/59
--- NOTE | 2024-05-01 10:02 | ED.GENMED ---
History of Present Illness
General
Chief Complaint: Skin Problem
Time Seen by Provider: 05/01/24 10:02
History of Present Illness
History of Present Illness:
TIME OF INITIAL ENCOUNTER: 10:05 AM
HPI: The patient came in by ambulance from home due to concerns of of a healthcare provider for cellulitis to the distal left lower extremity. She has had some more minor episodes and concerns of the affected area but now the areas much more red,
hot and she is now having trouble walking. She was also to have outpatient x-ray and ultrasound imaging.
EXAM:
GENERAL: The patient appears somewhat chronically ill
HEENT: Moist oral mucosa
CARDIOVASCULAR: No murmurs, normal heart rate, regular rhythm, No chest wall tenderness
PULMONARY: No respiratory distress, breath sounds are clear and equal
ABDOMEN: Soft with no peritoneal signs, no tenderness
NEUROLOGIC: Good strength all extremities, no coordination deficits
PSYCHIATRIC: Appropriate mental status, normal insight and judgement
EXTREMITIES: There is warmth and patchy redness at the left foot up to the solano, there is no purulent drainage, the foot is tender to palpation, she has easily dopplerable PT and DP pulses bilaterally
SKIN: As above
NUMBER AND COMPLEXITY OF PROBLEMS ADDRESSED AT THE ENCOUNTER
� Chronic conditions affecting care: CAD, high blood pressure, hyperlipidemia, hypothyroidism
� Acute Exacerbation and/or Progression of Chronic Illness: This is an acute problem but apparently is had similar episodes in the past.
� Differential Diagnosis includes: Cellulitis, DVT, doubt arterial insufficiency as she has easily dopplerable PT and DP pulses bilaterally
AMOUNT AND/OR COMPLEXITY OF DATA TO BE REVIEWED AND ANALYZED
� I performed an independent evaluation of and my interpretation is:
EKG:
CT:
X-rays: X-ray shows no evidence of osteomyelitis
Laboratory Studies: White count 12.7, chemistries unremarkable
Other: Ultrasound shows no evidence of DVT
� Review of other/old records:
� Clinical information was obtained by an independent historian: None needed
� Prescriptions/Medications Considered but not given:
� Further testing considered but not performed: Considered arterial lower extremity ultrasound imaging however the patient has easily dopplerable PT and DP pulses
RISK OF COMPLICATIONS AND/OR MORBIDITY OR MORTALITY OF PATIENT MANAGEMENT
� Social determinants of health affecting care: Lives at home
� Discussion with other providers: Hospitalist, Dr. Fall for admission at 12:12 PM
� Escalation of care including admission/observation vs risk of discharge considered: The patient has an elevated white blood cell count with findings consistent with distal left lower extremity cellulitis. She is on Eliquis.
She appears somewhat generally debilitated. She has warmth, tenderness, and patchy erythema in the distal aspect of the left lower extremity.
ANY OTHER UPDATES:
Past History
Past History
ED Past Medical History: HTN, Hypothyroidism and Other (Knee pain)
ED Past Surgical History: Cholecystectomy
Social History
Tobacco: Former smoker
Alcohol: None
Drug: None
Personal:
Living: alone
Phy Exam
Physical Exam
Physical Exam:
See HPI
Course
Orders/Labs/Results
Orders:
Orders
05/01/24 10:09
CR Foot - Left Min 3 Views Urgent
Comment:
Reason For Exam: pain redness eval for osteomyelitis
US Legs, Left [US Periph Venous LOWER Ext LT] Urgent
Comment:
Reason For Exam: LLE swelling
05/01/24 10:34
Basic Metabolic Panel Urgent
Complete Blood Count/With Diff Urgent
05/01/24 10:37
Miconazole Nitrate [Desenex/Mitrazol/Zeasorb] 1 applic TOPICAL NOW STA
05/01/24 10:39
CeFAZolin 1 GRAM [Ancef] 1 gram in 5 ml IV NOW
Abnormal Lab Results
05/01/24
10:34
WBC 12.7 H 10^3/uL
(4.8-10.8)
RBC 4.03 L 10^6/uL
(4.20-5.40)
MCHC 32.6 L g/dL
(33.0-37.0)
Abs Immat Gran (auto) 0.1 H 10^3/uL
(0-0.05)
Absolute Neuts (auto) 10.3 H 10^3/uL
(1.4-6.5)
Absolute Monos (auto) 0.9 H 10^3/uL
(0.1-0.6)
Immature Gran % 0.6 H %
(0-0.5)
Neutrophils % 81.5 H %
(42.2-75.2)
Lymphocytes % 10.3 L %
(20.5-51.1)
Carbon Dioxide 31 H mmol/L
(22-30)
BUN 20 H mg/dl
(7-17)
Glucose 127 H mg/dl
(70-99)
05/01/24 10:34
05/01/24 10:34
Vital Signs
Initial and Last Documented VS:
Initial Vital Signs
Temp Pulse Resp BP Pulse Ox
36.8 C 78 16 118/59 98
05/01/24 09:44 05/01/24 09:44 05/01/24 09:44 05/01/24 09:44 05/01/24 09:44
Last Documented Vital Signs
Temp Pulse Resp BP Pulse Ox
36.8 C 83 18 143/105 94
05/01/24 09:44 05/01/24 11:49 05/01/24 11:49 05/01/24 11:49 05/01/24 11:49
*Critical Care Note
Total Time (30-74mins, 75-104mins- exclusive of procedures): Not Applicable
ED Attending Note
-
Portions of this chart may have been created with voice recognition software.� Occasional wrong word or��sound alike� substitutions may have occurred due to the inherent limitations of voice recognition software.
Discharge Plan
Departure
Prescriptions:
No Action
levothyroxine 75 MCG tablet
75 mcg PO DAILY
multivitamin with folic acid [Tab-A-Marybeth] 1 TABLET tablet
1 tab PO MOWEFR@1800
furosemide 40 MG tablet
20 mg PO BID
atorvastatin 40 MG tablet
40 mg PO QPM
carvedilol 3.125 MG tablet
3.125 mg PO BID
lisinopril 2.5 MG tablet
2.5 mg PO DAILY
aspirin 81 MG tablet,delayed release (DR/EC)
81 mg PO DAILY Qty: 30 0RF
terbinafine HCl 250 mg Tablet
250 mg PO DAILY
potassium chloride 20 mEq Tablet Extended Release
20 meq PO QPM
Hair, Skin and Nails (biotin) 10,000 mcg Tablet,Chewable
10,000 mcg PO DAILY
Eliquis 2.5 mg tablet
2.5 mg PO BID Qty: 60 0RF
Rx Instructions:
Start taking on 02/21/24
oxycodone 5 mg Tablet
5 mg PO Q4HPRN PRN (Reason: mod-severe pain) Qty: 14 0RF
Referrals:
Jarrett Jung CRNP [Family Provider] -
Interventions
Interventions:
*Risk Screen - Suicide Last Done: 05/01/24 09:44
*Neglect/Abuse Screening Last Done: 05/01/24 09:44
ED-Skin Assessment Last Done: 05/01/24 10:42
Discharge Date and Time
Print Language: ARMENIAN
[2024-05-01 10:49] LABS: % Basophils 0.3 % (0-2); % Eosinophils 0.4 % (0-6); % Immature Granulocytes 0.6 % (0-0.5); % Lymphocytes 10.3 % (20.5-51.1); % Monocytes 6.9 % (1.7-9.3); % Neutrophils 81.5 % (42.2-75.2); Absolute Eosinophils 0.1 10^3/uL (0-0.7); Absolute Immature Granulocytes 0.1 10^3/uL (0-0.05); Absolute Lymphocytes 1.3 10^3/uL (1.2-3.4); Absolute Monocytes 0.9 10^3/uL (0.1-0.6); Absolute Neutrophils 10.3 10^3/uL (1.4-6.5); Hematocrit 37.7 % (37.0-47.0); Hemoglobin 12.3 g/dL (12.0-16.0); Mean Corp Hgb Conc. 32.6 g/dL (33.0-37.0); Mean Corpuscular Hgb 30.5 pg (27.0-31.0); Mean Corpuscular Volume 93.5 fL (81.0-99.0); Mean Platelet Volume 10.2 fL (7.4-10.4); Nucleated Red Blood Cells % 0 %; Platelet Count 175 10^3/uL (130-400); Red Blood Cell Count 4.03 10^6/uL (4.20-5.40); Red Cell Dist. Width 14.5 % (11.5-14.5); White Blood Cell Count 12.7 10^3/uL (4.8-10.8)
[2024-05-01 11:00] LABS: Blood Urea Nitrogen 20 mg/dl (7-17); Calcium 8.8 mg/dl (8.4-10.2); Carbon Dioxide 31 mmol/L (22-30); Chloride 102 mmol/L (98-107); Estimated Creatinine Clearance 59 ml/min; Glucose 127 mg/dl (70-99); Potassium 3.9 mmol/L (3.5-5.1); Sodium 140 mmol/L (135-145); eGFR > 60.00
[2024-05-01] MEDS: DESENEX/MITRAZOL/ZEASORB 1 APPLIC TOPICAL (11:24)
[2024-05-01] MEDS: ANCEF 5 IV ×2 (11:24→21:19)
[2024-05-01 11:49] VITALS: BP 143/105
--- NOTE | 2024-05-01 12:32 | HPS.HSE ---
Family Physician
-
Family Physician: RENETTA Perea
Chief Complaint
-
left leg infection
History of Present Illness
84-year-old female past medical history of hypertension, left lower extremity DVT in 2020 on Eliquis, CAD, diastolic CHF, hyperlipidemia, hypothyroidism, prior left knee hemarthrosis secondary to fall, lytic lesion of femur bone, presenting with
redness, warmth of the left lower extremity.
She states that she has been having redness, pain and discharge of her left toes which is being treated as a fungal infection. She has been taking terbinafine for 2 weeks and has 3 days left. She has also been using clotrimazole cream on her toes.
Looking at her prior admission records when she was admitted in January for left knee hemarthrosis secondary to Eliquis she was on terbinafine shortly prior to the admission. All of these treatments have not helped. The redness and pain and
swelling has persisted and gotten slightly worse.
Since yesterday she has also been complaining of progressing left calf redness pain and swelling. She denies any fevers or chills. She denies nausea vomiting or diarrhea. She is having difficulty ambulating.
She denies smoking or alcohol use.
Patient ambulates with a walker and lives alone with PT visiting her at home.
Medical History
Past Medical History
Past Medical History: Reports Other (hypertension, left lower extremity DVT in 2020 on Eliquis, CAD, diastolic CHF, hyperlipidemia, hypothyroidism, prior left knee hemarthrosis secondary to fall, lytic lesion of femur bone,)
Past Surgical History: Reports None
Social History
Tobacco: Non-smoker
Alcohol: None
Drug: None
Family History
Family History: Not pertinent
Allergies / Home Medications
Allergies reflects when Allergies were last updated in [employer].
Home Medications with original date entered in [employer]
Allergy/Medication List:
Allergies
Allergy/AdvReac Type Severity Reaction Status Date / Time
codeine Allergy Unknown Verified 05/01/24 09:53
tramadol Allergy fainting Verified 05/01/24 09:53
Home Medications
levothyroxine 75 mcg tablet 75 mcg PO DAILY Thyroid 06/22/17
atorvastatin 40 mg tablet 40 mg PO QPM High cholesterol 03/31/21
carvedilol 3.125 mg tablet 3.125 mg PO BID Blood pressure 03/31/21
furosemide 40 mg tablet 20 mg PO BID Fluid retention/Swelling 03/31/21
lisinopril 2.5 mg tablet 2.5 mg PO DAILY Blood pressure 03/31/21
multivitamin with folic acid 400 mcg tablet (Tab-A-Marybeth) 1 tab PO MOWEFR@1800 Supplement 03/31/21
aspirin 81 mg tablet,delayed release 81 mg PO DAILY #30 tabs 04/01/21
biotin 10,000 mcg chewable tablet (Hair, Skin and Nails (biotin)) 10,000 mcg PO DAILY Supplement 02/12/24
potassium chloride 20 mEq tablet,extended release 20 meq PO QPM Electrolyte Repletion 02/12/24
terbinafine HCl 250 mg tablet 250 mg PO DAILY Infection 02/12/24
apixaban 2.5 mg tablet (Eliquis) 2.5 mg PO BID #60 tabs 02/17/24
oxycodone 5 mg tablet 5 mg PO Q4HPRN PRN mod-severe pain #14 tabs 02/17/24
Review of Systems
-
History Source: Patient
A 12 point ROS was completed and negative except as noted: Yes
Constitutional: Reports No Symptoms
EENT: Reports No Symptoms
Respiratory: Reports No Symptoms
Cardiac: Reports No Symptoms
Abdomen/GI: Reports No Symptoms
: Reports No Symptoms
Musculoskeletal: Reports No Symptoms
Skin: Reports See HPI and Other
Neurological: Reports No Symptoms
Endocrine: Reports No Symptoms
Hematologic/Lymphatic: Reports No Symptoms
Psych: Reports No Symptoms
Physical Exam
Vital Signs
Vital Signs
Temp Pulse Resp BP Pulse Ox
98.2 F 83 18 143/105 94
05/01/24 09:44 05/01/24 11:49 05/01/24 11:49 05/01/24 11:49 05/01/24 11:49
Physical Exam
General: Well Developed, Well Nourished and No Apparent Distress
HEENT: NormoCephalic, Moist mucous membranes and Atraumatic
Respiratory: Clear
Cardiac: S1/S2 and Regular Rhythm; No Murmur or Rub
GI: Soft, Non Tender, Non Distended and Normal Bowel Sounds; No Organomegaly
Rectal: Deferred by Provider
Musculoskeletal: No Clubbing, No Cyanosis and No Edema
Skin: Other (left calf erythema, sweling and tenderness, left toes erythema ); No Rash
Neuro: Nonfocal/grossly intact
Laboratory Results
-
05/01/24 10:34
05/01/24 10:34
Data Reviewed
-
Lab Data: Labs Reviewed by me
Old Records: Reviewed
Impression/Plan
-
IMPRESSION:
PLAN:
# Left lower extremity cellulitis
-Leukocytosis
-Foot x-ray shows worsening soft tissue swelling of the left foot
-Venous ultrasound negative apart from small Reid's cyst
-Cefazolin
# Fungal infection of left toes with likely bacterial superinfection
-Continue terbinafine which is supposed to continue for 3 more days
-Continue clotrimazole cream or equivalent, given miconazole topical here
-Given discharge try to check culture if able
Essential hypertension
-Continue lisinopril
History of left lower extremity DVT in 2020
-Continue Eliquis
CAD
-Continue aspirin, statin
Chronic HFpEF
-Continue Coreg
-Continue Lasix
Hyperlipidemia
Hypothyroidism
-Continue levothyroxine
History of prior left knee hemarthrosis secondary to fall
History of lytic lesions of femur bone
-Patient seen by oncology during last admission with elevated free light chain kappa and ratio and plan for repeat SPEP in 2 to 3 months
-Bone scan was unremarkable
-Continue oxycodone
Full code
DVT prophylaxis�Eliquis
Regular diet
[2024-05-01 12:52] VITALS: BP 121/60
[2024-05-01 15:22] VITALS: BP 143/64; BMI 36.4
--- NOTE | 2024-05-01 15:45 | PTCARENOTE ---
Received patient from ED via stretcher. Pt AAOX3. Pox: 97% RA. Call silvestre within reach. Plan of care ongoing.
[2024-05-01 15:46] VITALS: BMI 36.4
[2024-05-01] MEDS: LASIX 20 MG PO (17:04)
[2024-05-01] MEDS: KCL 20 MEQ PO (17:04)
[2024-05-01] MEDS: THERAGRAN 1 TABLET PO (17:04)
[2024-05-01] MEDS: LIPITOR 40 MG PO (17:04)
[2024-05-01] MEDS: COREG 3.125 MG PO (21:19)
[2024-05-01] MEDS: ELIQUIS 2.5 MG PO (21:19)
[2024-05-01] MEDS: FLUSH (NSS) 1 FLUSH IV (21:20)
[2024-05-01] MEDS: LOTRIMIN 1% TOPICAL SOLUTION 1 APPLIC TOPICAL (21:20)
[2024-05-01 23:16] VITALS: BP 104/51
[2024-05-02] MEDS: ANCEF 5 IV ×3 (04:31→20:25)
[2024-05-02] MEDS: SYNTHROID 75 MCG PO (04:31)
[2024-05-02 06:00] VITALS: BMI 36.4
[2024-05-02] MEDS: TYLENOL 650 MG PO (06:10)
[2024-05-02 06:13] VITALS: BP 98/79
[2024-05-02 07:22] LABS: % Basophils 0.4 % (0-2); % Eosinophils 1.6 % (0-6); % Immature Granulocytes 0.1 % (0-0.5); % Lymphocytes 17.4 % (20.5-51.1); % Monocytes 8.4 % (1.7-9.3); % Neutrophils 72.1 % (42.2-75.2); Absolute Eosinophils 0.1 10^3/uL (0-0.7); Absolute Lymphocytes 1.3 10^3/uL (1.2-3.4); Absolute Monocytes 0.6 10^3/uL (0.1-0.6); Absolute Neutrophils 5.5 10^3/uL (1.4-6.5); Hematocrit 32.4 % (37.0-47.0); Hemoglobin 10.7 g/dL (12.0-16.0); Mean Corpuscular Hgb 30.7 pg (27.0-31.0); Mean Corpuscular Volume 93.1 fL (81.0-99.0); Nucleated Red Blood Cells % 0 %; Platelet Count 155 10^3/uL (130-400); Red Blood Cell Count 3.48 10^6/uL (4.20-5.40); Red Cell Dist. Width 14.5 % (11.5-14.5); White Blood Cell Count 7.6 10^3/uL (4.8-10.8)
[2024-05-02 07:25] VITALS: BP 110/51
[2024-05-02 08:21] LABS: ALT (SGPT) 13 U/L (0-35); AST (SGOT) 20 U/L (14-36); Albumin 2.9 g/dl (3.5-5.0); Alkaline Phosphatase 72 U/L (38-126); Blood Urea Nitrogen 18 mg/dl (7-17); Calcium 8.4 mg/dl (8.4-10.2); Carbon Dioxide 29 mmol/L (22-30); Chloride 103 mmol/L (98-107); Estimated Creatinine Clearance 58 ml/min; Glucose 96 mg/dl (70-99); Potassium 3.7 mmol/L (3.5-5.1); Sodium 140 mmol/L (135-145); Total Bilirubin 0.8 mg/dl (0.2-1.3); Total Protein 5.4 g/dl (6.3-8.2); eGFR > 60.00
[2024-05-02] MEDS: ROXICODONE 5 MG PO ×2 (09:14→19:37)
[2024-05-02] MEDS: ZESTRIL 2.5 MG PO (09:15)
[2024-05-02] MEDS: LASIX 20 MG PO ×2 (09:16→17:01)
[2024-05-02] MEDS: ASPIR LOW (ENTERIC COATED) 81 MG PO (09:16)
[2024-05-02] MEDS: LOTRIMIN 1% TOPICAL SOLUTION 1 APPLIC TOPICAL ×2 (09:17→20:25)
[2024-05-02] MEDS: DESENEX/MITRAZOL/ZEASORB 1 APPLIC TOPICAL ×2 (09:17→20:24)
[2024-05-02] MEDS: COREG 3.125 MG PO ×2 (09:17→20:25)
[2024-05-02] MEDS: ELIQUIS 2.5 MG PO ×2 (09:18→20:25)
--- NOTE | 2024-05-02 14:15 | CM ---
Patient seen at bedside with physician, patient lives alone in a 2SH with ramp entrance through garage. Patient has a stair glide as well and 2 walkers one on each floor. Patient stated that she does not drive any longer but is independent of ADL's.
Patient family helps with errands and transport. Patient is a and has family supports. Patient POA is Alyssa [phone]. Patient goal is to return home with VN if needed. Patient was at [facility] for a period of time and has had [facility] VN
supports at home. Patient uses the [facility] in [place] and her PCP is Fabiana JACKSON. CM will continue to follow for discharge planning needs.
PLan; home with VN vs SNF
--- NOTE | 2024-05-02 14:22 | W.PN.HOSP.TC ---
Today's Communication/Plan
-
consult podiatry
check MRI foot
cont ancef
Assessment / Plan
Assessment / Plan
pt is an 84 year old female
Left lower extremity cellulitis with Leukocytosis---Foot x-ray shows worsening soft tissue swelling of the left foot---Venous ultrasound negative apart from small Reid's cyst--cont Cefazolin--consult podiatry and check MRI left foot/toes
Fungal infection of left toes with likely bacterial superinfection--Continue terbinafine which is supposed to continue for 3 more days--Continue clotrimazole cream or equivalent, given miconazole topical here
Essential hypertension--Continue lisinopril
History of left lower extremity DVT in 2020--Continue Eliquis
CAD--Continue aspirin, statin
Chronic HFpEF--Continue Coreg--Continue Lasix
Hyperlipidemia--cont atorvastatin
Hypothyroidism--Continue levothyroxine
History of prior left knee hemarthrosis secondary to fall
History of lytic lesions of femur bone--Patient seen by oncology during last admission with elevated free light chain kappa and ratio and plan for repeat SPEP in 2 to 3 months--Bone scan was unremarkable--Continue oxycodone
code status --Full code
DVT prophylaxis�Eliquis
Anticipated Discharge: > 48 hours
Subjective/Interval History
-
Date of Service: May 02, 2024
pt wants MRI of left foot
Objective Data
-
Labs:
Laboratory Results
05/02/24
07:11
WBC 7.6
Hgb 10.7 L
Hct 32.4 L
Plt Count 155
Sodium 140
Potassium 3.7
Chloride 103
Carbon Dioxide 29
BUN 18 H
Creatinine 0.9
Glucose 96
Calcium 8.4
Total Bilirubin 0.8
AST 20
ALT 13
Alkaline Phosphatase 72
Vital Signs:
max temp for 24 hours
05/01/24
23:16
Temp 98.5 F
Vital Signs
Temp Pulse Resp BP Pulse Ox
98.0 F 74 20 110/51 98
05/02/24 07:25 05/02/24 07:25 05/02/24 07:25 05/02/24 07:25 05/02/24 07:25
I&O
05/01/24 05/02/24 05/03/24
06:59 06:59 06:59
Intake Total 240 / 240 480 / 480
Balance 240 / 240 480 / 480
Review of Systems
-
All other systems: Reviewed and negative
Musculoskeletal: Reports Other (left foot pain)
Physical Exam
-
General: Well Developed, Well Nourished and No Apparent Distress
HEENT: Normocephalic and Atraumatic
Respiratory: Clear to Auscultation; Negative Wheezes or Rhonchi
Cardiac: Regular Rhythm, S1/S2 and Murmur
GI: Soft, Nontender, Nondistended and Normal Bowel Sounds
Musculoskeletal: No Clubbing and No Cyanosis; Negative No Edema (left leg swollen--painful to touch, red to mid calf--left 2,3 toes very red and painful--thickened yellow fungal nails)
Neuro: Awake
Psych: Calm
--- NOTE | 2024-05-02 14:55 | WOUNDNOTE ---
L GREAT TOE DISTAL/PLANTAR WITH FLASH LIGHT
--- NOTE | 2024-05-02 14:56 | WOUNDNOTE ---
L PLANTAR TOES WITH FLASH LIGHT
--- NOTE | 2024-05-02 14:59 | WOUNDNOTE ---
WON RN note: Patient admitted with Cellulitis of L leg and foot.
See H&P for complete history. Lives alone with caregiver.
PMH: CHF,CAD,RI-CARDIAC STENTS,HTN,Ex Smoker, skin cancer to back and arm, fungal infection L toes.
Wound Location and type/assessment: Patient admitted with: Cellulitis of L leg. Patient reports she dropped a box of books on her foot causing cut under L great toe base. Suspect source of cellulitis. Patient has been also dealing with a fungal
infection to L toes mainly 1-3, no ulcers btw toe webs just moist. Compared to pictures shown via caregivers phone of L toes, skin less red and no longer weeping. Has Clotrimazole solution on order for toes. 1-2+ edema in foot and leg, skin warm and
dry, faint palpable pedal pulse. Patient had an apt with Dr. Howard but had to cancel due to hospital admission.
Appetite: good.
Pressure redistribution devices in place: On Accumax, ambulates with walker. Pillow under calves in use.
Plan: Local wound care to L great toe, recommend mupirocin ointment to cut at base of toe. Podiatry on consult will defer to Dr. Hayden for further orders. Leg elevation for edema.
Will confirm orders with hospitalist and updated nurse.
Updated care plan and will follow as needed.
Note to case management of equipment requested for discharge:
Recommend follow up at wound care center upon discharge.
[2024-05-02] MEDS: LIPITOR 40 MG PO (17:01)
[2024-05-02] MEDS: KCL 20 MEQ PO (17:01)
--- NOTE | 2024-05-02 18:12 | W.CS.POD ---
Consult Summary - Podiatry
-
84-year-old pleasant female with no h/o diabetes seen at bedside with painful left lower leg and swollen, red left foot, patient states that all this started almost in December 2023 when she dropped a heavy books box on her left foot. She states that
she had been using creams for fungus and also on PO antibiotics which have not helped the lower leg swelling has gotten worse 1 week ago and has been admitted for further evaluation and management patient is waiting to get left lower extremity MRI
patient is on IV antibiotics
Improved white blood cell count from 12.5 > 7.6
x-ray shows worsening soft tissue swelling of the left foot-
Reviewed past medical history medications and allergies
physical examination : intact pedal pulses both DP and PT.
Left foot edematous erythematous at the toes with superficial fissures under the Left big toe noted there are multiple interdigital macerated scaly skin noted
There is no crepitus or signs of any abscess noted
Assessment and plan : Left lower extremity cellulitis
Tinea Pedis
left foot superficial skin fissures
Plan: continue IV antibiotics
pending MRI of LT lower extremity
Will order Bactroban ointment to the left foot fissures and also AmLactin lotion to Lt foot
Will wait for MRI report
Podiatry will follow
[2024-05-03 00:10] VITALS: BP 134/74
[2024-05-03] MEDS: ANCEF 5 IV ×3 (04:13→20:19)
[2024-05-03] MEDS: SYNTHROID 75 MCG PO (04:13)
[2024-05-03 06:00] VITALS: BMI 36.8
[2024-05-03 07:37] VITALS: BP 118/55
[2024-05-03 08:49] LABS: Hematocrit 33.9 % (37.0-47.0); Hemoglobin 11.1 g/dL (12.0-16.0); Mean Corp Hgb Conc. 32.7 g/dL (33.0-37.0); Mean Corpuscular Hgb 30.7 pg (27.0-31.0); Mean Corpuscular Volume 93.6 fL (81.0-99.0); Mean Platelet Volume 10.5 fL (7.4-10.4); Platelet Count 181 10^3/uL (130-400); Red Blood Cell Count 3.62 10^6/uL (4.20-5.40); Red Cell Dist. Width 14.2 % (11.5-14.5); White Blood Cell Count 6.5 10^3/uL (4.8-10.8)
[2024-05-03 09:40] LABS: Blood Urea Nitrogen 20 mg/dl (7-17); Calcium 8.5 mg/dl (8.4-10.2); Carbon Dioxide 28 mmol/L (22-30); Chloride 104 mmol/L (98-107); Estimated Creatinine Clearance 58 ml/min; Glucose 97 mg/dl (70-99); Magnesium 1.9 mg/dl (1.6-2.3); Potassium 3.8 mmol/L (3.5-5.1); Sodium 141 mmol/L (135-145); eGFR > 60.00
[2024-05-03] MEDS: LAC HYDRIN, AM LACTIN LOTION 1 APPLIC TOPICAL ×2 (09:58→20:21)
[2024-05-03] MEDS: DESENEX/MITRAZOL/ZEASORB 1 APPLIC TOPICAL ×2 (09:58→20:21)
[2024-05-03] MEDS: BACTROBAN 2% OINTMENT 1 APPLIC TOPICAL ×2 (09:59→20:21)
[2024-05-03] MEDS: LASIX 20 MG PO ×2 (10:00→17:03)
[2024-05-03] MEDS: COREG 3.125 MG PO ×2 (10:00→20:20)
[2024-05-03] MEDS: ZESTRIL 2.5 MG PO (10:00)
[2024-05-03] MEDS: ELIQUIS 2.5 MG PO ×2 (10:01→20:21)
[2024-05-03] MEDS: LOTRIMIN 1% TOPICAL SOLUTION 1 APPLIC TOPICAL ×2 (10:01→20:20)
[2024-05-03] MEDS: ASPIR LOW (ENTERIC COATED) 81 MG PO (10:01)
[2024-05-03] MEDS: ROXICODONE 5 MG PO ×2 (10:02→20:19)
[2024-05-03] MEDS: FLUSH (NSS) 1 FLUSH IV ×2 (10:03→12:48)
--- NOTE | 2024-05-03 10:41 | WOUNDNOTE ---
VALENTIN RN NOTE: Reviewed Dr. Hayden's report and MRI results. No osteomyelitis, fracture or abscess of L toes. Updated wound care orders and care plan to include mupirocin and Amlactin that Dr. Hicks ordered. Discharge instructions also updated. Will
sign off.
[2024-05-03 12:19] VITALS: BMI 36.8
--- NOTE | 2024-05-03 14:17 | CM ---
Patient seen at bedside with physician. Patient to go to testing today. CM will continue to follow for discharge planning needs.
Plan; home with VN vs SNF
--- NOTE | 2024-05-03 15:28 | W.PN.HOSP.TC ---
Today's Communication/Plan
-
await arterial US and podiatry input
Assessment / Plan
Assessment / Plan
pt is an 84 year old female
Left lower extremity cellulitis with Leukocytosis---Foot x-ray shows worsening soft tissue swelling of the left foot---Venous ultrasound negative apart from small Reid's cyst--cont Cefazolin--apprec podiatry--MRI left foot/toes without osteo or
abscess--getting arterial ultrasound--consider ID consult
Fungal infection of left toes with likely bacterial superinfection--Continue terbinafine--Continue clotrimazole cream or equivalent, given miconazole topical here
Essential hypertension--Continue lisinopril
History of left lower extremity DVT in 2020--Continue Eliquis
CAD--Continue aspirin, statin
Chronic HFpEF--Continue Coreg--Continue Lasix
Hyperlipidemia--cont atorvastatin
Hypothyroidism--Continue levothyroxine
History of prior left knee hemarthrosis secondary to fall
History of lytic lesions of femur bone--Patient seen by oncology during last admission with elevated free light chain kappa and ratio and plan for repeat SPEP in 2 to 3 months--Bone scan was unremarkable--Continue oxycodone
code status --Full code
DVT prophylaxis�Eliquis
Anticipated Discharge: 24 - 48 hours
Subjective/Interval History
-
Date of Service: May 03, 2024
pt still c/o swollen red leg/toes
Objective Data
-
Labs:
Laboratory Results
05/03/24
07:53
WBC 6.5
Hgb 11.1 L
Hct 33.9 L
Plt Count 181
Sodium 141
Potassium 3.8
Chloride 104
Carbon Dioxide 28
BUN 20 H
Creatinine 0.9
Glucose 97
Calcium 8.5
Vital Signs:
max temp for 24 hours
05/01/24
23:16
Temp 98.5 F
Vital Signs
Temp Pulse Resp BP Pulse Ox
98.6 F 75 16 118/55 99
05/03/24 07:37 05/03/24 10:00 05/03/24 07:37 05/03/24 10:00 05/03/24 09:57
I&O
05/02/24 05/03/24 05/04/24
06:59 06:59 06:59
Intake Total 240 / 240 1320 / 1320
Balance 240 / 240 1320 / 1320
Review of Systems
-
All other systems: Reviewed and negative
Physical Exam
-
General: Well Developed, Well Nourished and No Apparent Distress
HEENT: Normocephalic and Atraumatic
Respiratory: Clear to Auscultation; Negative Wheezes or Rhonchi
Cardiac: Regular Rhythm, S1/S2 and Murmur
GI: Soft, Nontender, Nondistended and Normal Bowel Sounds
Musculoskeletal: No Clubbing, No Cyanosis and Other (left leg swollen, red and tending to touch--sock on left foot)
Skin: Warm
Neuro: Awake
Psych: Calm
[2024-05-03 16:10] VITALS: BP 108/76
--- NOTE | 2024-05-03 16:45 | PTCARENOTE ---
Pt AAO x3, GRAY; OOB to BR/ ambulates to stretcher in with assist x1/walker, ambulates very slowly. VSS. On room air- pulse ox 100%, no SOB noted. Abd obese, soft, nate PO well. Voids in BR; also incont at times/wears Depends. Lt foot dsg
D/I; encouraging pt to keep LLE elevated on pillow. resting in bed at present. Will continue to monitor.
[2024-05-03] MEDS: LIPITOR 40 MG PO (17:54)
[2024-05-03] MEDS: KCL 20 MEQ PO (17:54)
[2024-05-03] MEDS: THERAGRAN 1 TABLET PO (17:55)
[2024-05-03 23:30] VITALS: BP 115/60
[2024-05-04 03:34] VITALS: BP 111/52
[2024-05-04] MEDS: SYNTHROID 75 MCG PO (03:44)
[2024-05-04] MEDS: ANCEF 5 IV ×3 (03:44→20:17)
[2024-05-04 05:32] VITALS: BMI 37.0
[2024-05-04] MEDS: ROXICODONE 5 MG PO ×4 (05:53→23:46)
[2024-05-04 08:12] VITALS: BP 104/59
[2024-05-04 08:42] LABS: Hematocrit 34.2 % (37.0-47.0); Hemoglobin 10.6 g/dL (12.0-16.0); Mean Corpuscular Hgb 29.9 pg (27.0-31.0); Mean Corpuscular Volume 96.6 fL (81.0-99.0); Mean Platelet Volume 10.6 fL (7.4-10.4); Platelet Count 186 10^3/uL (130-400); Red Blood Cell Count 3.54 10^6/uL (4.20-5.40); Red Cell Dist. Width 14.1 % (11.5-14.5); White Blood Cell Count 5.3 10^3/uL (4.8-10.8)
[2024-05-04 09:19] LABS: Blood Urea Nitrogen 19 mg/dl (7-17); Calcium 8.4 mg/dl (8.4-10.2); Carbon Dioxide 27 mmol/L (22-30); Chloride 105 mmol/L (98-107); Estimated Creatinine Clearance 59 ml/min; Glucose 95 mg/dl (70-99); Potassium 3.9 mmol/L (3.5-5.1); Sodium 143 mmol/L (135-145); eGFR > 60.00
[2024-05-04] MEDS: DESENEX/MITRAZOL/ZEASORB 1 APPLIC TOPICAL ×2 (09:34→20:19)
[2024-05-04] MEDS: LOTRIMIN 1% TOPICAL SOLUTION 1 APPLIC TOPICAL ×2 (09:34→20:18)
[2024-05-04] MEDS: BACTROBAN 2% OINTMENT 1 APPLIC TOPICAL ×2 (09:34→20:19)
[2024-05-04] MEDS: LAC HYDRIN, AM LACTIN LOTION 1 APPLIC TOPICAL ×2 (09:34→20:19)
[2024-05-04] MEDS: COREG 3.125 MG PO ×2 (09:35→20:17)
[2024-05-04] MEDS: ASPIR LOW (ENTERIC COATED) 81 MG PO (09:37)
[2024-05-04] MEDS: ZESTRIL 2.5 MG PO (09:37)
[2024-05-04] MEDS: ELIQUIS 2.5 MG PO ×2 (09:37→20:17)
[2024-05-04] MEDS: LASIX 20 MG PO ×2 (09:38→17:13)
--- NOTE | 2024-05-04 10:54 | W.PN.POD ---
Today's Communication
Today's Communication
I have given her my office info, she can follow up in my office in 1 wk after discharge
Assessment / Plan
-
A/P : Resolving Left lower extremity cellulitis.
Improved erythema to LT foot.
Tinea pedis - will cont Clotrimazole cream to LT forefoot
left foot superficial skin fissures - will cont topical Bactroban ointment once daily
Plan: continue IV antibiotics another day, can transition to Po abx for another 1 wk
Reviewed MRI of LT lower extremity shows soft tissue edema, no fluid collection or any abscess
Reviewed Non invasive vascular studies, Shows WNL. no evidence of any vascular stenosis
Will cont Bactroban ointment to the left foot fissures and also AmLactin lotion to Lt foot
d/w Dr. Nelson, no wt bearing restrictions on LT leg, pt can wt bear as tolerated
Discussed with patient that she needs to move her leg gently to improve the pain and swelling
No surgical intervention by Podiatry
Subjective
Chief Complaint
Left lower extremity cellulitis
Subjective
Patient seen at bedside doing well, improved swelling to the left lower leg and improved redness to the left foot, no fever or chills. Patient states that she still has some pain in the left lower leg and her foot
Objective
Temp Pulse Resp BP Pulse Ox
98.2 F 80 18 104/59 100
05/04/24 08:12 05/04/24 08:12 05/04/24 08:12 05/04/24 08:12 05/04/24 08:12
05/04/24 07:22
05/04/24 07:22
Vital Signs and Lab results were reviewed.
Left foot intact pedal pulses both DP and PT
Left lower leg improved edema, improved erythema, minimal tenderness to the left lower leg.
Left foot resolved the edema, minimal erythema tot he forefoot noted, healing plantar fissures under the big toe, no signs of any abscess, no signs of any open ulcerations to LT foot
--- NOTE | 2024-05-04 13:48 | CM ---
Addendum entered by Suki Dodge 05/04/24 15:26:
Patient daughter updated and stated that her mother would be able to pay for wheelchair van if she needed that for transfer when discharged. patient daughter requested that patient complete a request for medical records with a note stating that her
daughter would knot picker cloth the records. CM updated Anupama at [facility] that auth was obtained and CM will continue to follow for discharge planning needs.
Original Note:
Patient seen at bedside with physician. Patient agreed to allow CM to send referral to SNF and following review of PAC data patient requested referral to [facility]. Referral sent to [facility] via all scripts. CM will call patient daughter Tamara Herrera at patient
request. CM will continue to follow for discharge planning needs.
Plan; SNF
--- NOTE | 2024-05-04 13:53 | W.PN.HOSP.TC ---
Today's Communication/Plan
-
consult ID
PT/OT
SNF planning
Assessment / Plan
Assessment / Plan
pt is an 84 year old female
Left lower extremity cellulitis with Leukocytosis---Foot x-ray shows worsening soft tissue swelling of the left foot---Venous ultrasound negative apart from small Reid's cyst--cont Cefazolin--apprec podiatry--MRI left foot/toes without osteo or
abscess--arterial ultrasound shows no insufficiency--consult ID --? dermatitis and needs biopsy?
Fungal infection of left toes with likely bacterial superinfection--Continue terbinafine--Continue clotrimazole cream or equivalent, given miconazole topical here
Essential hypertension--Continue lisinopril
History of left lower extremity DVT in 2020--Continue Eliquis
CAD--Continue aspirin, statin
Chronic HFpEF--Continue Coreg--Continue Lasix
Hyperlipidemia--cont atorvastatin
Hypothyroidism--Continue levothyroxine
History of prior left knee hemarthrosis secondary to fall
History of lytic lesions of femur bone--Patient seen by oncology during last admission with elevated free light chain kappa and ratio and plan for repeat SPEP in 2 to 3 months--Bone scan was unremarkable--Continue oxycodone
code status --Full code
DVT prophylaxis�Eliquis
Anticipated Discharge: 24 - 48 hours
Subjective/Interval History
-
Date of Service: May 04, 2024
pt not opposed to SNF
Objective Data
-
Labs:
Laboratory Results
05/04/24
07:22
WBC 5.3
Hgb 10.6 L
Hct 34.2 L
Plt Count 186
Sodium 143
Potassium 3.9
Chloride 105
Carbon Dioxide 27
BUN 19 H
Creatinine 0.9
Glucose 95
Calcium 8.4
Vital Signs:
max temp for 24 hours
05/04/24
08:12
Temp 98.2 F
Vital Signs
Temp Pulse Resp BP Pulse Ox
98.2 F 80 18 104/59 100
05/04/24 08:12 05/04/24 08:12 05/04/24 08:12 05/04/24 08:12 05/04/24 08:12
I&O
05/03/24 05/04/24 05/05/24
06:59 06:59 06:59
Intake Total 1320 / 1320 1140 / 1140
Balance 1320 / 1320 1140 / 1140
Review of Systems
-
All other systems: Reviewed and negative
Physical Exam
-
General: Well Developed, Well Nourished and No Apparent Distress
HEENT: Normocephalic and Atraumatic
Respiratory: Clear to Auscultation
Cardiac: Regular Rhythm and S1/S2; Negative Murmur
GI: Soft, Nontender, Nondistended and Normal Bowel Sounds
Musculoskeletal: No Clubbing, No Cyanosis and Other (left leg red, warm, swollen--no change)
Neuro: Awake
Psych: Calm
--- NOTE | 2024-05-04 15:02 | CON.ID ---
Consultation
-
Date/Time Consultation Requested: 05/04/2024 1313
Date/Time Consultation Performed: 05/04/2024 1500
Requesting Provider: Dr. Nelson
Performing Provider: Dr. Escudero
Reason for Consultation: Left lower extremity cellulitis
Chief Complaint / Past History
History of Present Illness
Thelma Stinson is an 84-year-old female being evaluated at the request of Dr. Nelson in regards to left lower extremity cellulitis. History is obtained from chart review, along with patient interview.
The patient has a history of left lower extremity DVT in 2020 and is maintained on Eliquis. According to reviewed records, she reports that she has been having erythema and pain of her left foot and she has been on treatment for a cutaneous
dermatophyte infection. She has been using terbinafine for approximately the past 2 weeks, along with using clotrimazole cream on her toes. It is noted that erythema and discomfort, along with swelling has persisted and in fact has increased. On
the day before admission she also began to complain of some left calf erythema and swelling. She has not had any fevers or chills.
Currently she notes some ongoing left ankle area discomfort of the skin. She also notes that the linear wound on the inferior aspect of her left hallux is painful when the toe is moved.
Past History
Additional Past Medical History:
HTN
LLE DVT
CAD
Diastolic CHF
Dyslipidemia
Hypothyroidism
Left knee hemarthrosis
Past Surgical History: None
Allergy History:
codeine Allergy (Verified 05/01/24 09:53)
Unknown
tramadol Allergy (Verified 05/01/24 09:53)
fainting
Medications Reviewed: Yes
Current Antibiotics:
Cefazolin 1 g IV every 8 hours (d#4)
Social History
Tobacco: Non-Smoker
Alcohol: None
Drug: None
Living: Assisted Living
Employment: Retired
Family History
Family History: Not Pertinent
Review of Systems
Vital Signs
Temp Pulse Resp BP Pulse Ox
98.2 F 80 18 104/59 100
05/04/24 08:12 05/04/24 08:12 05/04/24 08:12 05/04/24 08:12 05/04/24 08:12
Physical Exam
Physical Exam
Constitutional: No Acute Distress, Comfortable, Chronically Ill and Non-toxic
Eyes: No Conjunctival Hemorrhage and Sclera Anicteric
Cardiovascular: Regular Rate and S1/S2; Negative S3/S4
Pulmonary: Clear; Negative Wheezes or Rales
Gastrointestinal: Soft, Non Tender and Non Distended
Extremities: Edema (2+ LLE edema), Erythema (Distal leg/ankle area) and Venous Insufficiency (Bilateral lower extremities; L>R)
Skin: Warm and Dry
Wound: Other (Some tissue maceration noted between the toes of the left foot. A linear superficial wound is noted below the left hallux.)
Neurological: Awake and Alert
Psychological: Calm
Lab / Diagnostic Study Results
05/04/24 07:22
05/04/24 07:22
Abs Immat Gran (auto) 0.0 10^3/uL (0-0.05) 05/02/24 07:11
Absolute Neuts (auto) 5.5 10^3/uL (1.4-6.5) 05/02/24 07:11
Absolute Lymphs (auto) 1.3 10^3/uL (1.2-3.4) 05/02/24 07:11
Absolute Monos (auto) 0.6 10^3/uL (0.1-0.6) 05/02/24 07:11
Absolute Basos (auto) 0.0 10^3/uL (0-0.2) 05/02/24 07:11
Immature Gran % 0.1 % (0-0.5) 05/02/24 07:11
Neutrophils % 72.1 % (42.2-75.2) 12/03/24 07:11
Lymphocytes % 17.4 % (20.5-51.1) L 05/02/24 07:11
Monocytes % 8.4 % (1.7-9.3) 05/02/24 07:11
Eosinophils % 1.6 % (0-6) 05/02/24 07:11
Basophils % 0.4 % (0-2) 05/02/24 07:11
Microbiology Results
Imaging:
05/03/2024 lower extremity KANDI: No evidence of bilateral lower extremity arterial insufficiency. Bilateral ankle and toe brachial indices are within normal limits. Duplex demonstrates multiphasic waveforms from bilateral common femoral through
popliteal arteries with no velocity elevations to suggest any significant stenoses. Continuous Doppler waveforms at the dorsalis pedis and posterior tibial arteries bilaterally remain multiphasic as well.
Incidental finding of a lymph node left groin measuring 2.7 x 0.9 x 2.1 cm. Incidental left popliteal fossa Reid's cyst measuring 2.4 x 1.5 x 2.2 cm
05/02/2024 MRI left lower extremity: No MR evidence for osteomyelitis.
Assessment / Plan
Left lower extremity cellulitis (ankle area)
Left foot cellulitis
Cutaneous dermatophyte infection; left toes
Lower extremity edema
HTN
LLE DVT
CAD
Diastolic CHF
Dyslipidemia
Hypothyroidism
Recommendations:
Continue with cefazolin while inpatient, but at D/C can transition to cephalexin, to continue antibiotic therapy through 05/11/2024.
Continue with local care to the left toes. Continue with either terbinafine or clotrimazole, but dual therapy is not necessary.
Would continue with toe separation with gauze to prevent an intertrigo-like effect.
Keep feet dry as much as possible.
--- NOTE | 2024-05-04 15:17 | CM ---
Ellynna auth initiated
[facility] NPI#[id number]
Accepting Md: Dr Christopher Npi# [id number]
Approved skilled rehab
Start date 05/05/24, End date 05/11/24
Authorization # [id number]
updates to fax# [phone]
[2024-05-04 15:56] VITALS: BP 109/71
[2024-05-04] MEDS: KCL 20 MEQ PO (17:14)
[2024-05-04] MEDS: LIPITOR 40 MG PO (17:14)
[2024-05-04 23:44] VITALS: BP 105/45
[2024-05-05] MEDS: ANCEF 5 IV ×2 (04:08→11:52)
[2024-05-05] MEDS: SYNTHROID 75 MCG PO (04:08)
[2024-05-05 05:23] VITALS: BMI 36.7
[2024-05-05 07:00] LABS: Hematocrit 34.9 % (37.0-47.0); Hemoglobin 10.8 g/dL (12.0-16.0); Mean Corp Hgb Conc. 30.9 g/dL (33.0-37.0); Mean Corpuscular Hgb 29.8 pg (27.0-31.0); Mean Corpuscular Volume 96.4 fL (81.0-99.0); Mean Platelet Volume 10.1 fL (7.4-10.4); Platelet Count 200 10^3/uL (130-400); Red Blood Cell Count 3.62 10^6/uL (4.20-5.40); Red Cell Dist. Width 14.1 % (11.5-14.5); White Blood Cell Count 5.6 10^3/uL (4.8-10.8)
[2024-05-05 07:30] VITALS: BP 100/46
[2024-05-05 07:31] LABS: Blood Urea Nitrogen 23 mg/dl (7-17); Calcium 8.5 mg/dl (8.4-10.2); Carbon Dioxide 30 mmol/L (22-30); Chloride 106 mmol/L (98-107); Estimated Creatinine Clearance 58 ml/min; Glucose 90 mg/dl (70-99); Potassium 4.3 mmol/L (3.5-5.1); Sodium 142 mmol/L (135-145); eGFR > 60.00
[2024-05-05] MEDS: COREG 3.125 MG PO (09:09)
[2024-05-05] MEDS: ROXICODONE 5 MG PO ×3 (09:10→19:34)
[2024-05-05] MEDS: LOTRIMIN 1% TOPICAL SOLUTION 1 APPLIC TOPICAL (09:11)
[2024-05-05] MEDS: ZESTRIL 2.5 MG PO (09:11)
[2024-05-05] MEDS: ELIQUIS 2.5 MG PO (09:11)
[2024-05-05] MEDS: DESENEX/MITRAZOL/ZEASORB 1 APPLIC TOPICAL (09:11)
[2024-05-05] MEDS: BACTROBAN 2% OINTMENT 1 APPLIC TOPICAL (09:12)
[2024-05-05] MEDS: LAC HYDRIN, AM LACTIN LOTION 1 APPLIC TOPICAL (09:12)
[2024-05-05] MEDS: LASIX 20 MG PO ×2 (09:12→16:26)
[2024-05-05] MEDS: ASPIR LOW (ENTERIC COATED) 81 MG PO (09:13)
--- NOTE | 2024-05-05 11:26 | W.PN.HOSP.TC ---
Today's Communication/Plan
-
await ID input
Assessment / Plan
Assessment / Plan
pt is an 84 year old female
Left lower extremity cellulitis with Leukocytosis---Foot x-ray shows worsening soft tissue swelling of the left foot---Venous ultrasound negative apart from small Reid's cyst, arterial US without any insufficiency, MRI without osteomyelitis or
abscess--cont Cefazolin, change to oral cephalexin at d/c--apprec podiatry/ID--? dermatitis and needs biopsy? or trial of steroids?
Fungal infection of left toes with likely bacterial superinfection--Continue terbinafine--Continue clotrimazole cream or equivalent, given miconazole topical here
Essential hypertension--Continue lisinopril
History of left lower extremity DVT in 2020--Continue Eliquis
CAD--Continue aspirin, statin
Chronic HFpEF--Continue Coreg--Continue Lasix
Hyperlipidemia--cont atorvastatin
Hypothyroidism--Continue levothyroxine
History of prior left knee hemarthrosis secondary to fall
History of lytic lesions of femur bone--Patient seen by oncology during last admission with elevated free light chain kappa and ratio and plan for repeat SPEP in 2 to 3 months--Bone scan was unremarkable--Continue oxycodone
code status --Full code
DVT prophylaxis�Eliquis
Anticipated Discharge: Today
Subjective/Interval History
-
Date of Service: May 05, 2024
pt not sure she wants to go home, or SNF, or what
Objective Data
-
Labs:
Laboratory Results
05/05/24
06:23
WBC 5.6
Hgb 10.8 L
Hct 34.9 L
Plt Count 200
Sodium 142
Potassium 4.3
Chloride 106
Carbon Dioxide 30
BUN 23 H
Creatinine 0.9
Glucose 90
Calcium 8.5
Vital Signs:
max temp for 24 hours
05/04/24
23:44
Temp 97.8 F
Vital Signs
Temp Pulse Resp BP Pulse Ox
98.6 F 75 18 120/58 100
05/05/24 07:30 05/05/24 09:09 05/05/24 07:30 05/05/24 09:09 05/05/24 07:30
I&O
05/04/24 05/05/24 05/06/24
06:59 06:59 06:59
Intake Total 1140 / 1140 960 / 960
Balance 1140 / 1140 960 / 960
Review of Systems
-
All other systems: Reviewed and negative
Physical Exam
-
General: Well Developed, Well Nourished and No Apparent Distress
HEENT: Normocephalic and Atraumatic
Respiratory: Clear to Auscultation; Negative Wheezes or Rhonchi
Cardiac: Regular Rhythm and S1/S2; Negative Murmur
GI: Soft, Nontender, Nondistended and Normal Bowel Sounds
Musculoskeletal: No Clubbing, No Cyanosis and Other (no change to left leg)
Neuro: Awake
--- NOTE | 2024-05-05 13:59 | CM ---
Addendum entered by Suki Dodge 05/05/24 16:29:
patient updated and aware of plan for transfer. transfer forms completed and on chart. Please call report to [phone].
Addendum entered by Suki Dodge 05/05/24 14:38:
Antibiotic changed to Vanco per physician. CM updated [facility] and plan for transfer to discuss with patient.
CM will confirm with [facility] following Mid line placement
Original Note:
Patient seen at bedside, patient completed IMM and signed form placed on chart. Patient seen by ID and plan to have patient with 7 days of Dapto at SNF. Patient will need to have Mid line placed. Per physician plan for transfer to SNF for 10 more
days of antibiotics. CM left for admissions at [facility]. CM will complete ambulance transfer forms. Please call report to [phone]. CM will continue to follow for discharge planning needs.
Plan; transfer to [facility].
--- NOTE | 2024-05-05 14:07 | W.PN.ID1 ---
Date of Service
Date of Service: May 05, 2024
Today's Communication
Transition antibiotics to daptomycin.
Assessment / Plan
Left lower extremity cellulitis (ankle area)
Left foot cellulitis
Cutaneous dermatophyte infection; left toes
Lower extremity edema
HTN
LLE DVT
CAD
Diastolic CHF
Dyslipidemia
Hypothyroidism
Recommendations:
Ongoing erythema of left distal leg area noted. Not clear as to whether this is cellulitis, or erythroderma secondary to edema, or combination of both.
Transition antibiotic coverage to daptomycin 1 g IV every 24 hours for an additional 10 days of therapy.
Continue compressive modalities to the lower extremity; I have applied an Matty wrap to the area.
Continue with local care to the left toes. Continue with either terbinafine or clotrimazole, but dual therapy is not necessary.
Would continue with toe separation with gauze to prevent an intertrigo-like effect.
Keep feet dry as much as possible.
Chief Complaint
-: Cellulitis
Subjective / Review of Systems
Patient seen and examined. Reports ongoing left lower extremity discomfort and swelling.
Review of Systems: No Fever and No Chills
Vital Signs / Physical Exam
Vital Signs
Vital Signs
Temp Pulse Resp BP Pulse Ox
98.6 F 75 18 120/58 100
05/05/24 07:30 05/05/24 09:09 05/05/24 07:30 05/05/24 09:09 05/05/24 07:30
Physical Exam
Constitutional: No Acute Distress, Comfortable, Non-toxic and Obese
Eyes: Sclera Anicteric
Pulmonary: Non Labored
Extremities: Edema, Erythema (Distal left lower extremity.) and Venous Insufficiency
Neurological: Awake and Alert
Psychological: Calm
Objective Data
Lab Data
Lab Results
05/05/24 06:23
05/05/24 06:23
Estimated Creat Clear 58 ml/min 05/05/24 06:23
Total Bilirubin 0.8 mg/dl (0.2-1.3) 05/02/24 07:11
AST 20 U/L (14-36) 05/02/24 07:11
ALT 13 U/L (0-35) 05/02/24 07:11
Alkaline Phosphatase 72 U/L (38-126) 05/02/24 07:11
Most recent labs reviewed.
Imaging:
05/03/2024 lower extremity KANDI: No evidence of bilateral lower extremity arterial insufficiency. Bilateral ankle and toe brachial indices are within normal limits. Duplex demonstrates multiphasic waveforms from bilateral common femoral through
popliteal arteries with no velocity elevations to suggest any significant stenoses. Continuous Doppler waveforms at the dorsalis pedis and posterior tibial arteries bilaterally remain multiphasic as well.
Incidental finding of a lymph node left groin measuring 2.7 x 0.9 x 2.1 cm. Incidental left popliteal fossa Reid's cyst measuring 2.4 x 1.5 x 2.2 cm
05/02/2024 MRI left lower extremity: No MR evidence for osteomyelitis.
Care Review
Plan reviewed with: Physician (Hospitalist)
[2024-05-05 15:20] VITALS: BP 111/65
--- NOTE | 2024-05-05 16:11 | W.DCSUMMARY ---
Discharge Summary
Discharge Data
Date of Admission: 05/01/24
Date of Discharge: 05/05/24
Total time spent discharging patient (in min): 45
-
Pending Results: No
Hospital Course
Primary care physician : Jarrett Jung
Principal Discharge diagnosis : Left lower extremity cellulitis with leukocytosis, fungal infection of the toes
Chronic Discharge diagnosis : Essential hypertension, left lower extremity deep venous thrombosis, coronary artery disease, chronic heart failure with preserved ejection fraction without exacerbation, hyperlipidemia, hypothyroidism, history of prior
left knee hemarthrosis, history of lytic lesions of the femur bone
Hospital Course : Patient was an 84-year-old female who has been having redness, pain, and discharge of her left toes which was being treated as a fungal infection. She had been taking terbinafine for 2 weeks. She was also using clotrimazole.
Patient was admitted in January for left knee hemarthrosis secondary to Eliquis and any of the treatments that she has been doing have not helped. In fact, pain and swelling of the leg has gotten worse. Patient ambulates with a walker and lives
alone with physical therapy visiting at her home. Patient was found to have what appears to be cellulitis and was admitted.
Problem #1: Left lower extremity cellulitis with leukocytosis. Patient was admitted and started on IV cefazolin. Podiatry and infectious disease were consulted. Foot x-ray showed worsening soft tissue swelling of the left foot. MRI was done
which did not show any osteomyelitis nor abscess. Venous ultrasound was done which was negative for DVT but positive for a small Reid's cyst. Arterial ultrasounds were also done which were negative for any significant insufficiency. Plans were
to transition the patient to oral cephalexin and discharged the patient to [facility]. After much discussion between the patient and the infectious disease physician, daptomycin was chosen for 7 more days of IV and a midline was placed. [facility]
stated that daptomycin was too expensive therefore antibiotic was changed again to vancomycin for 7 more days. She will continue her terbinafine to complete her course. Cultures were not done of the leg since this is all skin bacteria (either
staph or strep). Patient has been instructed that if her leg does not improve after this course of IV antibiotics that perhaps a visit to a welding pantograph machine operator for skin biopsy would be warranted.
Problem #2: Fungal infection of the toes. Patient continued her terbinafine to complete her course.
Problem #3: All other medical issues. These include Essential hypertension, left lower extremity deep venous thrombosis, coronary artery disease, chronic heart failure with preserved ejection fraction without exacerbation, hyperlipidemia,
hypothyroidism, history of prior left knee hemarthrosis, history of lytic lesions of the femur bone. These medical issues were stable during her hospitalization. Medications were continued as able.
Patient is receiving a midline for IV antibiotic therapy. Patient is stable for discharge to rehab at this time. If there are any questions regarding this dictation or her hospital stay, please do not hesitate to call. Our office number is
[phone].
Time for discharge 45 minutes.
Important imaging findings :
ARTERIAL ULTRASOUND IMPRESSION: No evidence of bilateral lower extremity arterial insufficiency. Bilateral ankle and toe brachial indices are within normal limits. Duplex demonstrates multiphasic waveforms from bilateral common femoral through
popliteal arteries with no velocity elevations to suggest any significant stenoses. Continuous Doppler waveforms at the dorsalis pedis and posterior tibial arteries bilaterally remain multiphasic as well.
Incidental finding of a lymph node left groin measuring 2.7 x 0.9 x 2.1 cm. Incidental left popliteal fossa Reid's cyst measuring 2.4 x 1.5 x 2.2 cm
PERIPHERAL VASCULAR ULTRASOUND IMPRESSION:
1. No evidence of left lower extremity deep venous thrombosis from the common femoral through the upper calf veins.
2. Mild subcutaneous edema within the soft tissues of the left calf, of unknown etiology.
3. Small left popliteal Reid's cyst.
MRI FOOT IMPRESSION: Subcutaneous edema left foot, which is greatest dorsally. There is no evidence of a focal collection to suggest an abscess.
No MR evidence for osteomyelitis. No MR evidence for stress fracture or stress-related edema.
Tendinosis of the distal Achilles with no evidence for significant associated tear.
Two foci of decreased signal intensity within the plantar superficial subcutaneous soft tissues. One is located plantar to the distal fourth and fifth metatarsal bones, while the second is located plantar to the proximal phalanx of the great toe.
See above discussion and please correlate with physical exam. No corresponding radiodensity is seen in these regions on plain radiographs.
FOOT X-RAY IMPRESSION:
1. No cortical destruction to suggest osteomyelitis.
2. Worsening soft tissue swelling of the left foot compared to prior study dated 02/13/2024.
Discharge Plan
-
Patient Disposition: Jail/SNF
Discharge Diagnosis/Procedures: Left lower extremity cellulitis versus dermatitis with leukocytosis, fungal infection left toes, essential hypertension, history of left lower extremity deep venous thrombosis, coronary artery disease, chronic
diastolic congestive heart failure without exacerbation, hyperlipidemia, hypothyroidism, history of prior left knee hemarthrosis, history of lytic lesions in the left femur bone
Condition: Good
Diet: Low Cholesterol and 2 Gram Sodium
Activity: As tolerated
Driving Restrictions: As prior to admission
Bathing Restrictions: None
Activity Restrictions/Additional Instructions:
Wound Care Instructions
L great toe plantar(fissure): clean with soap and water, mupirocin and dry dressing twice a day and prn soilage.
Amlactin lotion to legs and feet daily
Referrals:
Jarrett Jung CRNP [Family Provider] - in less than 1 week
Additional Discharge Medication Instructions: take IV vancomycin through 05/15/24
Prescriptions:
New
oxycodone 5 mg Tablet
5 mg PO Q4HPRN PRN (Reason: mod-severe pain) Qty: 10 0RF
ammonium lactate 12 % Lotion
1 applic topical BID Qty: 0 0RF
clotrimazole 1 % Solution
1 applic topical BID Qty: 0 0RF
miconazole nitrate [Miconazorb AF] 2 % Powder
1 applic topical BID Qty: 0 0RF
mupirocin 2 % Ointment
1 applic topical BID Qty: 15 0RF
vancomycin 1.25 gram recon soln
1.25 g IV Q24H
Continued
levothyroxine 75 MCG tablet
75 mcg PO DAILY
multivitamin with folic acid [Tab-A-Marybeth] 1 TABLET tablet
1 tab PO MOWEFR@1800
furosemide 40 MG tablet
20 mg PO BID
atorvastatin 40 MG tablet
40 mg PO QPM
carvedilol 3.125 MG tablet
3.125 mg PO BID
lisinopril 2.5 MG tablet
2.5 mg PO DAILY
terbinafine HCl 250 mg Tablet
250 mg PO DAILY
potassium chloride 20 mEq Tablet Extended Release
20 meq PO QPM
Hair, Skin and Nails (biotin) 10,000 mcg Tablet,Chewable
10,000 mcg PO DAILY
aspirin 81 MG tablet,delayed release (DR/EC)
81 mg PO DAILY Qty: 30 0RF
Eliquis 2.5 mg tablet
2.5 mg PO BID Qty: 60 0RF
Rx Instructions:
Start taking on 02/21/24
Discontinued
oxycodone 5 mg Tablet
5 mg PO Q4HPRN PRN (Reason: mod-severe pain) Qty: 14 0RF
Discharge Orders:
Discharge Patient (As Directed); Ordered 05/05/24
Ordered By: Thelma Nelson
Discharge Date and Time
Print Language: [place]
[2024-05-05] MEDS: CUBICIN 20 MG IV (16:26)
[2024-05-05] MEDS: KCL 20 MEQ PO (18:11)
[2024-05-05] MEDS: THERAGRAN 1 TABLET PO (18:11)
[2024-05-05 19:00] VITALS: BP 150/59
== END 2024-05-05 19:40 | DRG 603 ==
LOC: 4 EAST ACU 12:51
PROVIDERS: ADMITTING PHYSICIAN Hospitalist; ATTENDING PHYSICIAN Internal Medicine; CONSULT PHYSICIAN Internal Medicine Infectious Disease; CONSULT PHYSICIAN Podiatrist Foot & Ankle Surgery; EMERGENCY PHYSICIAN Emergency Medicine; FAMILY PHYSICIAN Nurse Practitioner Family
DX: L03.116 Cellulitis of left lower limb (principal); I50.32 Chronic diastolic (congestive) heart failure; I11.0 Hypertensive heart disease with heart failure; I25.10 Atherosclerotic heart disease of native coronary artery without angina pectoris; E78.5 Hyperlipidemia, unspecified; B35.3 Tinea pedis; E03.9 Hypothyroidism, unspecified; Z87.891 Personal history of nicotine dependence; Z86.718 Personal history of other venous thrombosis and embolism; Z79.890 Hormone replacement therapy; Z79.01 Long term (current) use of anticoagulants; Z79.82 Long term (current) use of aspirin; Z79.899 Other long term (current) drug therapy; Z88.5 Allergy status to narcotic agent
CPT/HCPCS: 73630; 73718; 80048; 80053; 83735; 85025; 85027; 93922; 93925; 93971; 96374; 97162; 97166; 99285; J0878

== ENCOUNTER → 2024-05-10 11:15 | Outpatient (REF) | payer OTHER, SELFPAY ==
[2024-05-10 12:40] LABS: % Eosinophils 6.7 % (0-6); % Immature Granulocytes 0.3 % (0-0.5); % Lymphocytes 29.2 % (20.5-51.1); % Neutrophils 53.8 % (42.2-75.2); Absolute Basophils 0.1 10^3/uL (0-0.2); Absolute Eosinophils 0.4 10^3/uL (0-0.7); Absolute Lymphocytes 1.8 10^3/uL (1.2-3.4); Absolute Monocytes 0.5 10^3/uL (0.1-0.6); Absolute Neutrophils 3.2 10^3/uL (1.4-6.5); Hematocrit 35.8 % (37.0-47.0); Mean Corp Hgb Conc. 30.7 g/dL (33.0-37.0); Mean Corpuscular Hgb 29.9 pg (27.0-31.0); Mean Corpuscular Volume 97.3 fL (81.0-99.0); Mean Platelet Volume 11.3 fL (7.4-10.4); Nucleated Red Blood Cells % 0 %; Platelet Count 244 10^3/uL (130-400); Red Blood Cell Count 3.68 10^6/uL (4.20-5.40); Red Cell Dist. Width 14.1 % (11.5-14.5)
[2024-05-10 15:01] LABS: ALT (SGPT) 14 U/L (0-35); AST (SGOT) 19 U/L (14-36); Albumin 2.9 g/dl (3.5-5.0); Alkaline Phosphatase 68 U/L (38-126); Blood Urea Nitrogen 28 mg/dl (7-17); Calcium 8.4 mg/dl (8.4-10.2); Carbon Dioxide 27 mmol/L (22-30); Chloride 107 mmol/L (98-107); Glucose 94 mg/dl (70-99); Potassium 4.6 mmol/L (3.5-5.1); Sodium 140 mmol/L (135-145); Total Bilirubin 0.2 mg/dl (0.2-1.3); Total Protein 5.4 g/dl (6.3-8.2); eGFR > 60.00
== END ==
LOC: OLABP 11:15
PROVIDERS: ATTENDING PHYSICIAN Family Medicine
DX: L03.116 Cellulitis of left lower limb (principal); D72.829 Elevated white blood cell count, unspecified; B35.3 Tinea pedis; M79.672 Pain in left foot; I11.0 Hypertensive heart disease with heart failure; E78.5 Hyperlipidemia, unspecified
CPT/HCPCS: 36415; 80053; 85025

== ENCOUNTER → 2024-06-08 08:25 | Outpatient (REF) | payer OTHER, SELFPAY | LOC: WOUND 08:25 | PROVIDERS: ATTENDING PHYSICIAN Surgery; FAMILY PHYSICIAN Family Medicine | DX: L97.522 Non-pressure chronic ulcer of other part of left foot with fat layer exposed (principal); B35.3 Tinea pedis; E66.01 Morbid (severe) obesity due to excess calories; I42.9 Cardiomyopathy, unspecified | CPT/HCPCS: 99213 ==

== ENCOUNTER → 2024-06-15 10:23 | Outpatient (REF) | payer OTHER, SELFPAY | LOC: WOUND 10:23 | PROVIDERS: ATTENDING PHYSICIAN Surgery; FAMILY PHYSICIAN Family Medicine | DX: L97.522 Non-pressure chronic ulcer of other part of left foot with fat layer exposed (principal); B35.3 Tinea pedis; E66.01 Morbid (severe) obesity due to excess calories; I42.9 Cardiomyopathy, unspecified | CPT/HCPCS: 99212 ==

== ENCOUNTER 2024-06-23 07:16 | Outpatient (RCR) | payer OTHER, SELFPAY | END 2024-06-23 23:59 | disposition home or self-care (01) | LOC: RPT 07:16 | PROVIDERS: ATTENDING PHYSICIAN Internal Medicine Cardiovascular Disease; FAMILY PHYSICIAN Family Medicine | DX: I89.0 Lymphedema, not elsewhere classified (principal); Z73.6 Limitation of activities due to disability; R26.2 Difficulty in walking, not elsewhere classified; R26.89 Other abnormalities of gait and mobility | CPT/HCPCS: 97163; 97530; 97760 ==

== ENCOUNTER 2024-07-20 09:02 | Outpatient (RCR) | payer OTHER, SELFPAY | END 2024-07-20 23:59 | disposition home or self-care (01) | LOC: RPT 09:02 | PROVIDERS: ATTENDING PHYSICIAN Internal Medicine Cardiovascular Disease; FAMILY PHYSICIAN Family Medicine | DX: I89.0 Lymphedema, not elsewhere classified (principal); Z73.6 Limitation of activities due to disability; R26.2 Difficulty in walking, not elsewhere classified; R26.89 Other abnormalities of gait and mobility | CPT/HCPCS: 97530; 97763 ==

== ENCOUNTER → 2024-07-28 12:53 | Outpatient (REF) | payer OTHER, SELFPAY | LOC: RCS 12:53 | PROVIDERS: ATTENDING PHYSICIAN Internal Medicine Cardiovascular Disease; FAMILY PHYSICIAN Family Medicine | DX: I44.7 Left bundle-branch block, unspecified (principal) | CPT/HCPCS: 93306 ==

== ENCOUNTER → 2024-11-23 11:41 | Outpatient (REF) | payer OTHER, SELFPAY | LOC: HWEVLT 11:41 | PROVIDERS: ATTENDING PHYSICIAN Radiology Diagnostic Radiology | DX: I83.893 Varicose veins of bilateral lower extremities with other complications (principal) | CPT/HCPCS: 93970 ==

== ENCOUNTER → 2024-11-30 10:50 | Outpatient (REF) | payer OTHER, SELFPAY | LOC: RAD 10:50 | PROVIDERS: ATTENDING PHYSICIAN Nurse Practitioner Adult Health | DX: S09.90XD Unspecified injury of head, subsequent encounter (principal); R51.9 Headache, unspecified; Z79.01 Long term (current) use of anticoagulants | CPT/HCPCS: 70450 ==

== ENCOUNTER 2024-12-14 04:29 | Inpatient (IN) | payer OTHER, SELFPAY ==
[2024-12-13 18:34] VITALS: BP 101/57
[2024-12-13 19:06] LABS: ALT (SGPT) 19 U/L (0-35); AST (SGOT) 23 U/L (14-36); Albumin 3.6 g/dl (3.5-5.0); Alkaline Phosphatase 107 U/L (38-126); Blood Urea Nitrogen 22 mg/dl (7-17); Calcium 8.7 mg/dl (8.4-10.2); Carbon Dioxide 26 mmol/L (22-30); Chloride 108 mmol/L (98-107); Glucose 139 mg/dl (70-99); Potassium 4.1 mmol/L (3.5-5.1); Sodium 140 mmol/L (135-145); Total Protein 6.4 g/dl (6.3-8.2); eGFR 55.55
[2024-12-13 20:45] VITALS: BMI 39.1
[2024-12-13 20:46] VITALS: BP 135/52
[2024-12-13 21:14] LABS: Hematocrit 36.2 % (37.0-47.0); Hemoglobin 11.6 g/dL (12.0-16.0); Mean Corp Hgb Conc. 32.0 g/dL (33.0-37.0); Mean Corpuscular Volume 90.5 fL (81.0-99.0); Nucleated Red Blood Cells % 0 %; Platelet Count 212 10^3/uL (130-400); Red Cell Dist. Width 14.6 % (11.5-14.5)
[2024-12-13 22:00] VITALS: BP 124/34
[2024-12-13 23:00] VITALS: BP 128/49
[2024-12-14] VITALS (7 sets, daily range): BP systolic 116–181; BP diastolic 44–86; BMI 38.0
[2024-12-14 00:11] LABS: Hematocrit 36.7 % (37.0-47.0); Hemoglobin 11.9 g/dL (12.0-16.0); Mean Corp Hgb Conc. 32.4 g/dL (33.0-37.0); Mean Corpuscular Volume 90.0 fL (81.0-99.0); Nucleated Red Blood Cells % 0 %; Platelet Count 209 10^3/uL (130-400); Red Cell Dist. Width 14.8 % (11.5-14.5)
--- NOTE | 2024-12-14 00:11 | ED.GENMED ---
History of Present Illness
General
Chief Complaint: Rectal Bleeding
Source: patient and family
Exam Limitations: none
Time Seen by Provider: 12/13/24 22:58
Nursing documentation reviewed up to this point in time: agreed with
History of Present Illness
History of Present Illness:
84-year-old female with past medical history of CHF CAD currently on Eliquis as well as aspirin daily presenting to the emergency department after 2 episodes of bowel movements described as very large for mainly appear to be brown with red blood and
also red blood with wiping. Had some minimal discomfort with bowel movements mainly to the anal region but some mild pain to the abdomen. No nausea vomiting no similar episodes in the past. No lightheadedness chest pain or shortness of breath.
Past History
Past History
ED Past Medical History: HTN, Hypothyroidism and Other (Knee pain)
ED Past Surgical History: Cholecystectomy
Social History
Tobacco: Former smoker
Alcohol: None
Drug: None
Personal:
Living: alone
Review of Systems
Review of Systems
Allergies reviewed?: Yes
All Other Systems: ROS reviewed and negative except as documented in HPI and ROS
Phy Exam
Physical Exam
Physical Exam:
GENERAL: Alert , in no apparent distress
EYE: pupils equal and reactive
NECK: Supple, no significant adenopathy.
ENT: o/p clr, mmm.
CARDIAC: Regular rate and rhythm .
LUNGS: Clear breath sounds bilaterally, no acute respiratory distress, no wheezes/rales/rhonchi
ABDOMEN: Rectal examination revealing brown stool that is guaiac positive, patient has many external hemorrhoids without obvious bleeding. Soft, without focal tenderness, no r/g, no cvat
NEUROLOGICAL: Alert and oriented, no focal neuro deficits
SKIN: Warm and dry, skin intact.
MUSCULOSKELETAL: No edema, well perfused.
PSYCH: Normal and appropriate interaction.
Course
Orders/Labs/Results
Orders:
Orders
12/13/24 18:46
Type+Screen Urgent
Comprehensive Metabolic Panel Urgent
12/13/24 20:59
ABO2 Urgent
BBK Wristband Number:
Associate notified that ABO2 has been ordered: [id number]
Date: 12/13/24
Time: 18:55
Chief Administrative Officer ID: [id number]
Complete Blood Count/With Diff Urgent
12/13/24 23:55
Complete Blood Count/With Diff Urgent
12/14/24
CT Abd/Pel (IV only)-[facility] only Urgent
Reason For Exam: llq pain rectal bleeding
Abnormal Lab Results
12/13/24 12/13/24 12/13/24
18:46 20:59 23:55
RBC 4.00 L 10^6/uL 4.08 L 10^6/uL
(4.20-5.40) (4.20-5.40)
Hgb 11.6 L g/dL 11.9 L g/dL
(12.0-16.0) (12.0-16.0)
Hct 36.2 L % 36.7 L %
(37.0-47.0) (37.0-47.0)
MCHC 32.0 L g/dL 32.4 L g/dL
(33.0-37.0) (33.0-37.0)
RDW 14.6 H % 14.8 H %
(11.5-14.5) (11.5-14.5)
MPV 10.5 H fL
(7.4-10.4)
Absolute Monos (auto) 0.8 H 10^3/uL 0.7 H 10^3/uL
(0.1-0.6) (0.1-0.6)
Chloride 108 H mmol/L
(98-107)
BUN 22 H mg/dl
(7-17)
Glucose 139 H mg/dl
(70-99)
12/13/24 23:55
12/13/24 18:46
Vital Signs
Initial and Last Documented VS:
Initial Vital Signs
Temp Pulse Resp BP Pulse Ox
98.4 F 79 18 101/57 98
12/13/24 18:34 12/13/24 18:34 12/13/24 18:34 12/13/24 18:34 12/13/24 18:34
Last Documented Vital Signs
Temp Pulse Resp BP Pulse Ox
98.4 F 69 22 137/76 94
12/13/24 18:34 12/14/24 00:00 12/14/24 00:00 12/14/24 00:00 12/14/24 01:45
MDM/Problems Addressed
MDM/Problems Addressed:
84-year-old female presenting to the emergency department today with concerns of rectal bleeding. Does have some pain associated plan for CT scan for further assessment. Otherwise vital signs are normal here hemoglobin 11.9. Rectal examination
reveals red-brown colored stool guaiac positive. Patient does have hemorrhoids but no clear evidence of ongoing bleeding there. Otherwise CT scan obtained without acute abnormalities. Consider the patient is on Eliquis plan to admit for further
monitoring and GI consultation.
*Pulse Oximetry
SaO2: 95
Oxygen Mode of Delivery: Room air
Patient hypoxic: no (94)
*Critical Care Note
Total Time (30-74mins, 75-104mins- exclusive of procedures): Not Applicable
ED Attending Note
-
Portions of this chart may have been created with voice recognition software.� Occasional wrong word or��sound alike� substitutions may have occurred due to the inherent limitations of voice recognition software.
Discharge Plan
Departure
Patient Disposition: Admit
Date of Disposition: 12/14/24
Time of Disposition: 02:44
Admit to: Med/Surg
Admit to doctor: Jarrell
Presentation/result/management discussed w/ accepting MD/DO: Hospitalist
Patient with high blood pressure during this ER visit?: No
Condition: Good
Covid-19: Not Applicable
Discharge Problem:
GI (gastrointestinal bleed)
Prescriptions:
No Action
levothyroxine 75 MCG tablet
75 mcg PO DAILY
multivitamin with folic acid [Tab-A-Marybeth] 1 TABLET tablet
1 tab PO MOWEFR@1800
furosemide 40 MG tablet
20 mg PO BID
atorvastatin 40 MG tablet
40 mg PO QPM
carvedilol 3.125 MG tablet
3.125 mg PO BID
lisinopril 2.5 MG tablet
2.5 mg PO DAILY
terbinafine HCl 250 mg Tablet
250 mg PO DAILY
potassium chloride 20 mEq Tablet Extended Release
20 meq PO QPM
Hair, Skin and Nails (biotin) 10,000 mcg Tablet,Chewable
10,000 mcg PO DAILY
oxycodone 5 mg Tablet
5 mg PO Q4HPRN PRN (Reason: mod-severe pain) Qty: 10 0RF
ammonium lactate 12 % Lotion
1 applic topical BID Qty: 0 0RF
clotrimazole 1 % Solution
1 applic topical BID Qty: 0 0RF
miconazole nitrate [Miconazorb AF] 2 % Powder
1 applic topical BID Qty: 0 0RF
mupirocin 2 % Ointment
1 applic topical BID Qty: 15 0RF
aspirin 81 MG tablet,delayed release (DR/EC)
81 mg PO DAILY Qty: 30 0RF
Eliquis 2.5 mg tablet
2.5 mg PO BID Qty: 60 0RF
Rx Instructions:
Start taking on 02/21/24
vancomycin 1.25 gram recon soln
1.25 g IV Q24H
Referrals:
Jarrett Jung CRNP [Family Provider, General]
Interventions
Interventions:
*Risk Screen - Suicide Last Done: 12/13/24 18:34
*General Assessment Last Done: 12/13/24 18:34
*Neglect/Abuse Screening Last Done: 12/13/24 18:34
*ED- Fall Risk Assessment Last Done: 12/13/24 18:34
*ED COVID-19 Vaccine History Last Done: 12/13/24 18:34
YU-Yyegnu-Gkvrmighhx Assessment Last Done: 12/13/24 20:45
ED- Cardiac Assessment Last Done: 12/13/24 20:45
ED- Pulmonary Assessment Last Done: 12/13/24 20:45
Discharge Date and Time
Print Language: TURKISH
--- NOTE | 2024-12-14 04:02 | HPS.HSE ---
Family Physician
-
Family Physician: RENETTA Perea
Chief Complaint
-
BRBPR
History of Present Illness
Patient is an 84y F with PMH significant for ASCVD, CHF and hypertension who presents to ED complaining of BRBPR. Patient states that she woke Wednesday AM and had an 'enormous' bowel movement. She denies any straining or any rectal / abdominal
pain associated with the bowel movement. Patient states that the stool was brown. When she wiped she noted bright red blood on the toilet paper and had drops of BRB dripping on the floor. Patient denies any lightheadedness, dizziness, chest pain
or dyspnea. She denies any prior h/o GI / rectal bleeding.
Patient called her PCP who recommended that she present to the ED. She remained at home and had dinner with her daughter in the evening.
Following dinner she had another, smaller bowel movement and again noted bright red blood on the toilet paper. She presented to the ED for further evaluation.
Patient takes Eliquis for CAD. Her last dose was Wednesday AM.
She has RLE excoriation / wound and is followed at [facility].
She states that she has been on an antibiotic (? Keflex) for the past week or so.
Medical History
Past Medical History
Past Medical History: Reports Other
Additional Past Medical History:
ASCVD
Hypertension
Chronic HFrecEF
Hypothyroidism
Obesity
Chronic Ambulatory Dysfunction / Wheelchair Dependent
Past Surgical History: Reports Other
Additional Past Surgical History:
Cholecystectomy
PTCA with Stent
Social History
Tobacco: Non-smoker
Alcohol: None
Drug: None
Living: Alone
Family History
Family History: Not pertinent
Allergies / Home Medications
Allergies reflects when Allergies were last updated in [employer].
Home Medications with original date entered in [employer]
Allergy/Medication List:
Allergies
Allergy/AdvReac Type Severity Reaction Status Date / Time
codeine Allergy Unknown Verified 05/01/24 09:53
tramadol Allergy fainting Verified 05/01/24 09:53
Home Medications
levothyroxine 75 mcg tablet 75 mcg PO DAILY Thyroid 06/22/17
carvedilol 3.125 mg tablet 3.125 mg PO BID Blood pressure 03/31/21
lisinopril 2.5 mg tablet 2.5 mg PO DAILY Blood pressure 03/31/21
multivitamin with folic acid 400 mcg tablet (Tab-A-Marybeth) 1 tab PO MOWEFR@1800 Supplement 03/31/21
apixaban 2.5 mg tablet (Eliquis) 2.5 mg PO BID Blood clot prevention/tx #60 tabs 05/05/24
aspirin 81 mg tablet,delayed release 81 mg PO DAILY Blood clot prevention/tx #30 tabs 05/05/24
oxycodone 5 mg tablet 5 mg PO Q4HPRN PRN mod-severe pain #10 tabs 05/05/24
atorvastatin 80 mg tablet 80 mg PO HS 12/14/24
cholecalciferol (vitamin D3) 25 mcg (1,000 unit) tablet 25 mcg PO DAILY 12/14/24
ezetimibe 10 mg tablet 10 mg PO DAILY 12/14/24
furosemide 20 mg tablet 20 mg PO BID 12/14/24
vit C 250 mg-E 90 mg-zinc 40 mg-copper 1 [id number]-gqdnml chew tablet (PreserVision AREDS-2) 1 tab PO QAM AND QPM 12/14/24
Review of Systems
-
History Source: Patient
A 12 point ROS was completed and negative except as noted: Yes
Constitutional: Denies Fever, Fatigue or Chills
Respiratory: Denies Cough or Trouble Breathing
Cardiac: Denies Chest Pain or Palpitations
Abdomen/GI: Denies Abdominal Pain, Nausea, Vomiting or Diarrhea (BRBPR)
: Denies Dysuria, Frequency or Bleeding
Musculoskeletal: Reports Edema; Denies Joint Pain
Skin: Reports Other (Redness, pain RLE)
Neurological: Denies Dizzy or Headache
Psych: Denies Depression or Anxiety
Physical Exam
Vital Signs
Vital Signs
Temp Pulse Resp BP Pulse Ox
98.4 F 69 22 137/76 94
12/13/24 18:34 12/14/24 00:00 12/14/24 00:00 12/14/24 00:00 12/14/24 03:30
Physical Exam
General: Other (84y F in no acute distress.)
HEENT: Moist mucous membranes, PERRLA and Other (Thick neck.)
Respiratory: Clear; No Wheezes, Rales or Rhonchi
Cardiac: S1/S2 and Regular Rhythm; No Murmur
GI: Soft, Non Tender, Non Distended and Normal Bowel Sounds
Musculoskeletal: No Clubbing, No Cyanosis and Other (Trace - 1+ edema b/l LEs.)
Skin: Other (Erythema / excoriations of the RLE. Mild weeping / oozing. No bleeding. )
Neuro: AO x 3
Laboratory Results
-
12/13/24 23:55
12/13/24 18:46
Laboratory Results
Total Bilirubin 0.5 mg/dl (0.2-1.3) 12/13/24 18:46
AST 23 U/L (14-36) 12/13/24 18:46
ALT 19 U/L (0-35) 12/13/24 18:46
Alkaline Phosphatase 107 U/L (38-126) 12/13/24 18:46
Impression/Plan
-
A/P: Patient is an 84y F with PMH significant for ASCVD, CHF and hypertension who presents to ED for evaluation of BRBPR.
BRBPR
- Admit for further evaluation and treatment.
- History seems c/w hemorrhoids or rectal fissure given bleeding noted after particularly large BM.
- Hold Eliquis / ASA for now.
- Follow H&H for any changes.
- Monitor for any additional bleeding.
- GI consulted for any additional recommendations.
RLE Excoriations / Wounds
- Hold on further PO abx for now - has completed 1 week per patient.
- Wound Care eval for local care recommendations.
- Follow-up with [facility] as an outpatient.
ASCVD
- Stable. Continue carvedilol, statin, etc.
- Holding ASA / Eliquis acutely - resume when OK with GI.
Chronic HFrecEF
- Stable. No gross evidence of volume overload at present.
- Hold diuretic acutely.
- Follow I/Os, daily weights, etc.
Benign Hypertension
- Stable. Continue carvedilol with holding parameters.
- Hold lisinopril acutely.
Hypothyroidism
- Continue current T4 supplementation.
DVT Prophylaxis: SCDs while Eliquis on hold. US done and negative for DVT 11/23/24
Code Status: Full
--- NOTE | 2024-12-14 06:00 | PTCARENOTE ---
Received patient from ED at approx 0600. 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 AAA x 3. Call silvestre in reach.
--- NOTE | 2024-12-14 06:50 | CON.GI ---
Addendum entered and electronically signed by Shahbaz Shepherd MD 12/14/24 12:59:
I saw and examined the patient.
The CLERICAL INVESTIGATOR or PA's note was reviewed and I agree with the note.
Comment: 84yo female presents with rectal bleeding. She passed large BM yesterday and noted red blood with wiping, then more blood leading to ER. Hgb 11.9. Had colonoscopy with Dr Laird about 2018 negative she believes. On Eliquis for prior DVT.
Hemorrhoids on rectal exam.
REC:
Options include treating hemorrhoids and monitor for rebleeding or proceeding with colonoscopy now.
Pt wishes to discuss with family
Hold Eliquis last dose
HC suppository
Trend Hgb
Original Note:
Consultation
-
Date/Time Consultation Requested: 12/14/24614
Date/Time Consultation Performed: 12/14/24729
Requesting Provider: Link Vieyra DO
Performing Provider: RENETTA Kemp, Shabhaz Shepherd MD
Reason for Consultation: rectal bleeding
Medical History
Chief Complaint / HPI
Chief Complaint: blood in stools
History of Present Illness:
Pt is an 84yo with hx MD, CAD with prior cardiac stenting and prior DVT on chronic Eliquis, colon polyps, CHF, cardiomyopathy, LE wounds, hyperlipidemia, hypothyroidism, Left BBB, prior nadeen presents to ER with bright red blood per rectum. She
reports large BM on Wednesday with brown stool then on wiping noted red blood on toilet paper and toilet with drops of blood dripping on floor. She saw more blood later in day prompting ER eval. Pt also admits to recent abx over last week. On
admission hbg 11.9, BUN 22. Last colonoscopy 2018 through [facility]. Pt recall hx polyp in past. Ct on admission with Prior cholecystectomy. Mild biliary tract dilatation likely the sequela of prior cholecystectomy. Suggest correlation with LFTs.
Limited evaluation of the intestinal tract without oral contrast, without intestinal obstruction or free air. Unremarkable appendix.Two small exophytic low-attenuation right renal lesions most likely representing simple cysts although the more
anterior lesion difficult to confirm. Recommend ultrasound for more complete evaluation.
At this time she admits to rectal bleeding as above, minimal constipation with daily stools and occasionally skips day with BM. She also has some dysphagia with food. She otherwise denies GERD, nausea, vomiting, abdominal pain, diarrhea,
constipation or black stools.
Past Medical History
Past Medical History: Arrhythmias (Left BBB), CAD, Cancer (skin CA), CHF, Hypercholesterolemia, Hypothyroidism, MD and Other (Cardiomyopathy, DVT, obesity, ambulatory dysfunction, LE wounds)
Past Surgical History: Cardiac (RCA stent ), Cholecystectomy and Other (cataract surgery)
Social History
Tobacco: Former Smoker (years ago )
Alcohol: Occasional (rare)
Drug: None
Personal:
Living: Alone
Employment: Retired
Family History
Family History: Other (father with cecal cancer, mother with dermomyositis, sister with lung CA)
Allergies / Home Medications
Allergy/AdvReac Type Severity Reaction Status Date / Time
codeine Allergy Unknown Verified 05/01/24 09:53
tramadol Allergy fainting Verified 05/01/24 09:53
�Medication �Instructions �Recorded
levothyroxine 75 mcg tablet 75 mcg PO DAILY Thyroid 06/22/17
carvedilol 3.125 mg tablet 3.125 mg PO BID Blood pressure 03/31/21
lisinopril 2.5 mg tablet 2.5 mg PO DAILY Blood pressure 03/31/21
multivitamin with folic acid 400 1 tab PO MOWEFR@1800 Supplement 03/31/21
mcg tablet (Tab-A-Marybeth)
apixaban 2.5 mg tablet (Eliquis) 2.5 mg PO BID Blood clot 05/05/24
prevention/tx #60 tabs
aspirin 81 mg tablet,delayed 81 mg PO DAILY Blood clot 05/05/24
release prevention/tx #30 tabs
oxycodone 5 mg tablet 5 mg PO Q4HPRN PRN mod-severe pain 05/05/24
#10 tabs
atorvastatin 80 mg tablet 80 mg PO HS 12/14/24
cholecalciferol (vitamin D3) 25 25 mcg PO DAILY 12/14/24
mcg (1,000 unit) tablet
ezetimibe 10 mg tablet 10 mg PO DAILY 12/14/24
furosemide 20 mg tablet 20 mg PO BID 12/14/24
vit C 250 mg-E 90 mg-zinc 40 1 tab PO QAM AND QPM 12/14/24
mg-copper 1 [id number] chew
tablet (PreserVision AREDS-2)
Review of Systems
-
History Source: Patient
Constitutional: Reports No Symptoms
EENT: Reports No Symptoms
Respiratory: Reports No Symptoms
Cardiac: Reports No Symptoms
Abdomen/GI: Reports Constipated (mild occasional skips day with BM) and Bloody Stools
: Reports Incontinence
Musculoskeletal: Reports Other (decreased motility )
Skin: Reports Other (LE edema and rash under breasts )
Neurological: Reports No Symptoms
Endocrine: Reports No Symptoms
Hematologic/Lymphatic: Reports Bleeding
Vital Signs
Temp Pulse Resp BP Pulse Ox
98.3 F 71 18 150/70 95
12/14/24 06:14 12/14/24 06:14 12/14/24 06:14 12/14/24 06:14 12/14/24 06:14
Physical Exam
Exam
General: Well Developed, Well Nourished and No Apparent Distress
HEENT: Normocephalic and Anicteric
Respiratory: Clear
Cardiac: Regular Rhythm
GI: Soft, Non Tender and Non Distended
Rectal: Brown, Hem Negative, Hemorrhoids and Other (soft stool in rectal vault, no masses or lesions, )
Musculoskeletal: No Clubbing and No Cyanosis
Skin: Warm and Dry
Neuro: Awake, Alert and AO x 3
Psych: Calm
Results
WBC 8.8 10^3/uL (4.8-10.8) 12/13/24 23:55
Hgb 11.9 g/dL (12.0-16.0) L 12/13/24 23:55
Hct 36.7 % (37.0-47.0) L 12/13/24 23:55
MCV 90.0 fL (81.0-99.0) 12/13/24 23:55
Plt Count 209 10^3/uL (130-400) 12/13/24 23:55
Absolute Neuts (auto) 5.3 10^3/uL (1.4-6.5) 12/13/24 23:55
Sodium 140 mmol/L (135-145) 12/13/24 18:46
Potassium 4.1 mmol/L (3.5-5.1) 12/13/24 18:46
Chloride 108 mmol/L (98-107) H 12/13/24 18:46
Carbon Dioxide 26 mmol/L (22-30) 12/13/24 18:46
BUN 22 mg/dl (7-17) H 12/13/24 18:46
Creatinine 1.0 mg/dL (0.6-1.0) 12/13/24 18:46
Calcium 8.7 mg/dl (8.4-10.2) 12/13/24 18:46
Total Bilirubin 0.5 mg/dl (0.2-1.3) 12/13/24 18:46
AST 23 U/L (14-36) 12/13/24 18:46
ALT 19 U/L (0-35) 12/13/24 18:46
Alkaline Phosphatase 107 U/L (38-126) 12/13/24 18:46
Diagnostic Image Results:
12/14/24 CT Abd/Pel (IV only)-[facility] only
Prior cholecystectomy. Mild biliary tract dilatation likely the sequela of prior cholecystectomy. Suggest correlation with LFTs.
Limited evaluation of the intestinal tract without oral contrast, without intestinal obstruction or free air.
Unremarkable appendix.
Two small exophytic low-attenuation right renal lesions most likely representing simple cysts although the more anterior lesion difficult to confirm. Recommend ultrasound for more complete evaluation.
Prior GI Procedures:
EGD: none
Colonoscopy: hx polyps last 2018 stopped with age
Assessment / Plan
-
Pt is an 84yo with hx MD, CAD with prior cardiac stenting and prior DVT on chronic Eliquis, colon polyps, CHF, cardiomyopathy, LE wounds, hyperlipidemia, hypothyroidism, Left BBB, prior nadeen presents to ER with bright red blood per rectum. She
reports large BM on Wednesday with brown stool then on wiping noted red blood on toilet paper and toilet with drops of blood dripping on floor. She saw more blood later in day prompting ER eval. Pt also admits to recent abx over last week. On
admission hbg 11.9, BUN 22. Last colonoscopy 2018 through [place]. Pt recall hx polyp in past. Ct on admission with Prior cholecystectomy. Mild biliary tract dilatation likely the sequela of prior cholecystectomy. Suggest correlation with LFTs.
Limited evaluation of the intestinal tract without oral contrast, without intestinal obstruction or free air. Unremarkable appendix.Two small exophytic low-attenuation right renal lesions most likely representing simple cysts although the more
anterior lesion difficult to confirm. Recommend ultrasound for more complete evaluation. On admission hbg 11.9, BUN 22. rectal exam with brown stool no blood and hemorrhoids.
-bright red blood per rectum
-hemorrhoid on exam
-hx DVT/cardiac stent on Eliquis
-hx colon polyps last colonoscopy 2018
-renal lesions on CT
-LE wounds
other medical problems:
-hx MD
- CAD with prior cardiac stenting
- CHF, cardiomyopathy
-hyperlipidemia
-hypothyroidism
- Left BBB
-prior nadeen with mild biliary dilation and normal LFT's
PLAN:
etiology of bleeding related to local source as noted with hemorrhoids on exam vs other- cannot rule out polyp or other lesion
trend hbg and stool records--no bleeding overnight and brown stool on exam
CT as noted -- not done as angio so limited for bleeding source- no need for repeat as no bleeding overnight
Eliquis hold last dose 7/16 AM
add anusol BID
discussed option with patient of treatment of hemorrhoids (Anusol, fiber supplement, avoid prolonged sitting on toilet, avoid straining etc) vs proceeding with colonoscopy as other etiology not excluded
she wishes to review with family and then decide
ok for clear diet - advance if opting to hold colonoscopy
cont PPI
work up for renal lesions per medical team
-
-
Thank you for consultation and allowing me to participate in the patient's care. Please call the sock and stocking ironer GI physician during the after hours with any questions or concerns.
[2024-12-14] MEDS: SYNTHROID 75 MCG PO (07:48)
[2024-12-14] MEDS: COREG 3.125 MG PO ×2 (07:49→20:03)
[2024-12-14] MEDS: NSS (PRESERVATIVE FREE) 10 ML IV (07:49)
[2024-12-14] MEDS: PROTONIX IV 40 MG IV (07:49)
[2024-12-14] MEDS: TYLENOL 650 MG PO (07:50)
--- NOTE | 2024-12-14 09:03 | W.PN.HOSP.TC ---
Today's Communication/Plan
-
Hold aspirin/Eliquis
Anusol supp BID as per GI
Trend hemoglobin
Assessment / Plan
Assessment / Plan
84y F with PMH significant for ASCVD, CHF and hypertension who presents to ED complaining of BRBPR. Patient states that she woke Wednesday AM and had an 'enormous' bowel movement. She denies any straining or any rectal / abdominal pain
associated with the bowel movement. Patient states that the stool was brown. When she wiped she noted bright red blood on the toilet paper and had drops of BRB dripping on the floor. Patient denies any lightheadedness, dizziness, chest pain or
dyspnea. She denies any prior h/o GI / rectal bleeding.
Patient called her PCP who recommended that she present to the ED. She remained at home and had dinner with her daughter in the evening.
Following dinner she had another, smaller bowel movement and again noted bright red blood on the toilet paper. She presented to the ED for further evaluation.
Patient takes Eliquis for CAD. Her last dose was Wednesday AM.
BRBPR
- History seems c/w hemorrhoids or rectal fissure given bleeding noted after particularly large BM.
- Hold Eliquis / ASA
- Appreciate GI input, started on Anusol suppository twice daily
- Patient to decide if she would like to proceed with colonoscopy
Chronic normocytic anemia
- Hemoglobin is better today than admission, continue to trend hemoglobin
RLE Excoriations / Wounds
- Hold on further PO abx for now - has completed 1 week per patient.
- Continue wound care, follow-up with [facility] as an outpatient.
ASCVD
- Stable. Continue carvedilol, statin, etc.
- Holding ASA / Eliquis acutely - resume when OK with GI.
Chronic HFrecEF
- Stable. No gross evidence of volume overload at present.
- Hold diuretic acutely.
Benign Hypertension
- Stable. Continue carvedilol with holding parameters.
- Hold lisinopril acutely.
Hypothyroidism
- Continue current T4 supplementation.
DVT Prophylaxis: SCDs secondary to bright red blood per rectum while Eliquis on hold. US done and negative for DVT 11/23/24
Code Status: Full
Physical Exam
General: Obese, no acute distress
HEENT: Normocephalic, Atraumatic, EOMI, MMM
Respiratory: Clear to Auscultation bilaterally
Cardiac: Normal S1/S2, Regular Rate and Rhythm
GI: Soft, Nontender, Nondistended, Normal Bowel Sounds
Extremities: No Clubbing, Cyanosis
Bilateral lower extremity edema with erythema suggestive of chronic venous stasis dermatitis
Neuro: Nonfocal/Grossly Intact
Anticipated Discharge: 24 - 48 hours
Subjective/Interval History
-
Date of Service: December 14, 2024
Objective Data
-
Labs:
Laboratory Results
12/13/24 12/13/24
20:59 23:55
WBC 10.2 8.8
Hgb 11.6 L 11.9 L
Hct 36.2 L 36.7 L
Plt Count 212 209
Vital Signs:
Vital Signs
Temp Pulse Resp BP Pulse Ox
98.3 F 71 18 150/70 95
12/14/24 06:14 12/14/24 06:14 12/14/24 06:14 12/14/24 06:14 12/14/24 06:14
[2024-12-14] MEDS: ANUSOL HC 25 MG RECTAL ×2 (09:16→21:06)
--- NOTE | 2024-12-14 14:46 | WOUNDNOTE ---
VIANNEY (R LATERAL, L MEDIAL)
--- NOTE | 2024-12-14 14:47 | WOUNDNOTE ---
R ABDOMEN (OUTER LOWER)
--- NOTE | 2024-12-14 14:50 | WOUNDNOTE ---
[facility] RN note: Patient admitted with rectal bleed. Patient lives at home and has a visiting caregiver.
See H&P for complete history.
PMH: ASCVD, CHF, HTN, venous insufficiency, obesity, ambulation dysfunction, PTCA with stent. 11/22/24 venous Doppler Le's negative for DVT. 05/03/24 arterial Doppler R KANDI 1.01, R TBI .88; L KANDI 1.18, L TBI 1.10.
Wound Location and type/assessment: Patient admitted with: Dermal open skin RLE r/t venous edema. Yeasty red skin abdominal/groin, breast folds. Miconazole powder on order. +Pedal pulses easily heard via portable Doppler. Trace LE edema. R buttocks
scabbed stage 2 pressure injuries.
Appetite: good.
Pressure redistribution devices in place: [employer] Accumax. Patient can turn self slowly in bed.
Plan: Dressing applied RLE. Bilateral knee high Matty wraps applied. Silicone border foam applied to R buttocks. Heels off bed with bariatric air chair cushion. Instructed patient pressure injury prevention measures and uses of air chair cushion.
Instructed patient importance of knee high compression to heal leg skin. Patient aware to follow up at [facility].
Confirmed orders with Dr. Quick including knee high Matty wraps and discussed with PEDRO Yoder.
Care plan to be updated and will follow as needed.
Note to case management requested for discharge: VN services. Patient instructed to ask CM re: VN.
Recommend follow up at wound care center upon discharge.
--- NOTE | 2024-12-14 15:39 | CM ---
Patient seen bedside, initial assessment completed. Patient is an 84y F with PMH significant for ASCVD, CHF and hypertension who presents to ED complaining of BRBPR
Patient resides alone in a 2STH, 1 step to enter from the front and back, ramp access through the garage. Patient is mostly w/c bound, patient stated she's been using w/c since April 2024. Patient has a raised toilet seat, grab bar and built in
shower seat in the bathroom. Denies SNF, prev known to [facility] and [facility] in the past. Patient stated she does arm and feet exercises every other day. Patient recently had a private pay aide 4 days/week initially then decreased to 2 days due to
cost. Due to aide having family obligations, she's unable to assist patient, patient plans to explore [facility] [place] as she needs someone to assist w/ showering and shopping as patient does not drive. CM encouraged patient if she needs additional
options for aides to let CM know at d/c.
Address, points of contact and insurance verified
PCP: Jarrett Jung
Pharmacy: [facility]
WOC rec VN at d/c, patient aware of this and permitted CM to send referral to either [facility] or [facility]
Plan: Home w/ VN
[2024-12-14] MEDS: TRIAMCINOLONE ACETONIDE 0.1% OINTMENT 1 APPLIC TOPICAL (21:06)
[2024-12-14] MEDS: DESENEX/MITRAZOL/ZEASORB 1 APPLIC TOPICAL (21:07)
[2024-12-15] VITALS (8 sets, daily range): BP systolic 133–168; BP diastolic 50–88; PULSE 72–92; O2SAT 96; BMI 38.0; BMI 37.9
[2024-12-15] MEDS: SYNTHROID 75 MCG PO (06:10)
--- NOTE | 2024-12-15 07:31 | W.PN.GI.CBS2 ---
Addendum entered and electronically signed by Deepthi Baltazar Do, MD 12/15/24 13:37:
I saw and examined the patient.
The SUPERVISOR DRAPERY HANGING's note was reviewed and I agree with the note.
Comment: She passed large brown BM this AM. Denies abd pain, nausea/vomiting. Vitals stable exam obese abdomen, in wheelchair with venous stasis changes. Labs reviewed Hbg stable.
Recommendations
- Continue to hold AC
- Low residue diet now
- Plan for slow prep for colonoscopy on Wednesday
- Her last Cscope 2017
Will follow with you
Original Note:
Today's Communication / Plan
-
etiology of bleeding related to local source as noted with hemorrhoids on exam vs other- cannot rule out polyp or other lesion
hbg 11.6-11.9--11.5 remains stable
Eliquis hold last dose 12/13 AM
cont Anusol BID x 5 days
discussed option with patient of treatment of hemorrhoids (Anusol, fiber supplement, avoid prolonged sitting on toilet, avoid straining etc) vs proceeding with colonoscopy as other etiology not excluded-- discussed option of outpateint colonoscopy
with hbg stable and minimal blood
she is still considering options and concerned with age and risk of procedure
monitor stools this am
cont clear diet for now
Pt still considering IP vs OP colonoscopy vs observation with risk of missed lesion
cont PPI
work up for renal lesions per medical team
Assessment / Plan
-
Pt is an 84yo with hx [place], CAD with prior cardiac stenting and prior DVT on chronic Eliquis, colon polyps, CHF, cardiomyopathy, LE wounds, hyperlipidemia, hypothyroidism, Left BBB, prior nadeen presents to ER with bright red blood per rectum. She
reports large BM on Wednesday with brown stool then on wiping noted red blood on toilet paper and toilet with drops of blood dripping on floor. She saw more blood later in day prompting ER eval. Pt also admits to recent abx over last week. On
admission hbg 11.9, BUN 22. Last colonoscopy 2018 through [facility]. Pt recall hx polyp in past. Ct on admission with Prior cholecystectomy. Mild biliary tract dilatation likely the sequela of prior cholecystectomy. Suggest correlation with LFTs.
Limited evaluation of the intestinal tract without oral contrast, without intestinal obstruction or free air. Unremarkable appendix.Two small exophytic low-attenuation right renal lesions most likely representing simple cysts although the more
anterior lesion difficult to confirm. Recommend ultrasound for more complete evaluation. On admission hbg 11.9, BUN 22. rectal exam with brown stool no blood and hemorrhoids.
-bright red blood per rectum
-hemorrhoid on exam
-hx DVT/cardiac stent on Eliquis
-hx colon polyps last colonoscopy 2018
-renal lesions on CT
-LE wounds
other medical problems:
-hx ME
- CAD with prior cardiac stenting
- CHF, cardiomyopathy
-hyperlipidemia
-hypothyroidism
- Left BBB
-prior nadeen with mild biliary dilation and normal LFT's
PLAN:
etiology of bleeding related to local source as noted with hemorrhoids on exam vs other- cannot rule out polyp or other lesion
hbg 11.6-11.9--11.5 remains stable
Eliquis hold last dose 7/16 AM
cont Anusol BID x 5 days
discussed option with patient of treatment of hemorrhoids (Anusol, fiber supplement, avoid prolonged sitting on toilet, avoid straining etc) vs proceeding with colonoscopy as other etiology not excluded-- discussed option of outpateint colonoscopy
with hbg stable and minimal blood
she is still considering options and concerned with age and risk of procedure
monitor stools this am
cont clear diet for now
Pt still considering IP vs OP colonoscopy vs observation with risk of missed lesion
cont PPI
work up for renal lesions per medical team
Subjective
Subjective
Date of Service: December 15, 2024
one stool with blood and one with just brown stool, on clear diet
Objective
Data Reviewed
Laboratory Data:
Laboratory Results
Total Bilirubin 0.5 mg/dl (0.2-1.3) 12/13/24 18:46
AST 23 U/L (14-36) 12/13/24 18:46
ALT 19 U/L (0-35) 12/13/24 18:46
Alkaline Phosphatase 107 U/L (38-126) 12/13/24 18:46
Vital Signs and I&O:
Vital Signs
Temp Pulse Resp BP Pulse Ox
98.3 F 69 18 167/69 95
12/15/24 03:29 12/15/24 03:29 12/15/24 03:29 12/15/24 03:29 12/15/24 03:29
I&O
12/14/24 12/15/24 12/16/24
06:59 06:59 06:59
Intake Total 1080 / 1080
Balance 1080 / 1080
Physical Exam
Physical Exam
HEENT: Anicteric and Moist mucous membranes
Cardiology: Normal Sinus Rhythm
Pulmonary: Clear
GI: Soft, Non Distended and Non Tender
Rectal: Black
Extremities: Edema
Neuro: Non Focal
[2024-12-15 07:40] LABS: Hematocrit 36.0 % (37.0-47.0); Hemoglobin 11.5 g/dL (12.0-16.0); Mean Corp Hgb Conc. 31.9 g/dL (33.0-37.0); Mean Corpuscular Volume 89.8 fL (81.0-99.0); Platelet Count 202 10^3/uL (130-400); Red Cell Dist. Width 14.9 % (11.5-14.5)
[2024-12-15 08:02] LABS: Blood Urea Nitrogen 12 mg/dl (7-17); Calcium 8.6 mg/dl (8.4-10.2); Carbon Dioxide 24 mmol/L (22-30); Chloride 113 mmol/L (98-107); Estimated Creatinine Clearance 76 ml/min; Glucose 98 mg/dl (70-99); Potassium 3.8 mmol/L (3.5-5.1); Sodium 141 mmol/L (135-145); eGFR > 60.00
[2024-12-15] MEDS: PROTONIX IV 40 MG IV (09:27)
[2024-12-15] MEDS: COREG 3.125 MG PO ×2 (09:27→20:58)
[2024-12-15] MEDS: NSS (PRESERVATIVE FREE) 10 ML IV (09:27)
[2024-12-15] MEDS: ANUSOL HC 25 MG RECTAL ×2 (09:27→20:57)
--- NOTE | 2024-12-15 09:30 | W.PN.HOSP.TC ---
Today's Communication/Plan
-
Plan for colonoscopy on Wednesday
Assessment / Plan
Assessment / Plan
84y F with PMH significant for ASCVD, CHF and hypertension who presents to ED complaining of BRBPR. Patient states that she woke Wednesday AM and had an 'enormous' bowel movement. She denies any straining or any rectal / abdominal pain
associated with the bowel movement. Patient states that the stool was brown. When she wiped she noted bright red blood on the toilet paper and had drops of BRB dripping on the floor. Patient denies any lightheadedness, dizziness, chest pain or
dyspnea. She denies any prior h/o GI / rectal bleeding.
Patient called her PCP who recommended that she present to the ED. She remained at home and had dinner with her daughter in the evening.
Following dinner she had another, smaller bowel movement and again noted bright red blood on the toilet paper. She presented to the ED for further evaluation.
Patient takes Eliquis for CAD. Her last dose was Wednesday AM.
BRBPR exacerbated by Eliquis use
- History seems c/w hemorrhoids or rectal fissure given bleeding noted after particularly large BM.
- Hold Eliquis / ASA
- Appreciate GI input, started on Anusol suppository twice daily
- Plan for colonoscopy on Wednesday
Chronic normocytic anemia
- Hemoglobin stable, continue to trend
RLE Excoriations / Wounds
- Hold on further PO abx for now - has completed 1 week per patient.
- Continue wound care, follow-up with Wound Center as an outpatient.
ASCVD
- Stable. Continue carvedilol, statin, etc.
- Holding ASA / Eliquis acutely - resume when OK with GI.
Chronic HFrecEF
- Stable. No gross evidence of volume overload at present.
- Hold diuretic acutely.
Benign Hypertension
- Stable. Continue carvedilol with holding parameters.
- Resume lisinopril
Hypothyroidism
- Continue current T4 supplementation.
DVT Prophylaxis: SCDs secondary to bright red blood per rectum while Eliquis on hold. US done and negative for DVT 11/23/24
Code Status: Full
Total time spent to see the patient on the floor, examine the patient, review data and lab results, discuss treatment plan with patient, nursing staff around 39 minutes.
Physical Exam
General: Obese, no acute distress
HEENT: Normocephalic, Atraumatic, EOMI, MMM
Respiratory: Clear to Auscultation bilaterally
Cardiac: Normal S1/S2, Regular Rate and Rhythm
GI: Soft, Nontender, Nondistended, Normal Bowel Sounds
Extremities: No Clubbing, Cyanosis
Bilateral lower extremity edema with erythema suggestive of chronic venous stasis dermatitis
Neuro: Nonfocal/Grossly Intact
Anticipated Discharge: > 48 hours
Subjective/Interval History
-
Date of Service: December 15, 2024
Patient had 1 stool with blood, and 1 stool that was only brown. Denies chest pain, shortness of breath. No fever, no vomiting.
Objective Data
-
Labs:
Laboratory Results
12/15/24
07:24
WBC 7.4
Hgb 11.5 L
Hct 36.0 L
Plt Count 202
Sodium 141
Potassium 3.8
Chloride 113 H
Carbon Dioxide 24
BUN 12
Creatinine 0.7
Glucose 98
Calcium 8.6
Vital Signs:
Vital Signs
Temp Pulse Resp BP Pulse Ox
98.0 F 69 18 133/64 96
12/15/24 07:56 12/15/24 07:56 12/15/24 07:56 12/15/24 07:56 12/15/24 07:56
I&O
12/14/24 12/15/24 12/16/24
06:59 06:59 06:59
Intake Total 1080 / 1080
Balance 1080 / 1080
--- NOTE | 2024-12-15 09:58 | PN.CDI ---
CDI
- -
CDI:
Physician Documentation Request
Admit Date: 12/14/24 04:29
Dear Doctor Do,
Patient admitted with bright red blood per rectum.
12/14 PN, ' BRBPR....Hold Eliquis / ASA.'
Please clarify the likely relationship between these conditions:
Yes, BRBPR is associated with/exacerbated by Eliquis/ASA
No, BRBPR is not associated with/exacerbated by Eliquis/ASA but it is due to ___. (Please specify)
Unable to determine
Use of terms such as suspected, likely, concern for, or probable (associated with a specific diagnosis that is being evaluated, monitored, or treated as if it exists) are acceptable and can be coded in the inpatient setting, when documented at the
time of discharge.
Thank you,
Veronika HAMMOND,RN,CCDS
CDI Specialist
Available via [employer] text
Please use your independent medical judgment in providing your response.
[2024-12-15] MEDS: DESENEX/MITRAZOL/ZEASORB 1 APPLIC TOPICAL ×2 (18:45→21:00)
[2024-12-15] MEDS: HYDROPHOR 1 APPLIC TOPICAL (18:45)
[2024-12-15] MEDS: TRIAMCINOLONE ACETONIDE 0.1% OINTMENT 1 APPLIC TOPICAL ×2 (18:46→20:58)
[2024-12-16 03:45] VITALS: BP 136/69
[2024-12-16] MEDS: SYNTHROID 75 MCG PO (05:54)
[2024-12-16 06:00] VITALS: BMI 38.1
[2024-12-16 06:25] LABS: Hematocrit 34.6 % (37.0-47.0); Hemoglobin 11.3 g/dL (12.0-16.0); Mean Corp Hgb Conc. 32.7 g/dL (33.0-37.0); Mean Corpuscular Volume 90.1 fL (81.0-99.0); Platelet Count 195 10^3/uL (130-400); Red Cell Dist. Width 15.0 % (11.5-14.5)
[2024-12-16 07:00] VITALS: BP 127/57
[2024-12-16] MEDS: PROTONIX IV 40 MG IV (08:39)
[2024-12-16] MEDS: COREG 3.125 MG PO ×2 (08:39→20:54)
[2024-12-16] MEDS: ANUSOL HC 25 MG RECTAL (08:39)
[2024-12-16] MEDS: NSS (PRESERVATIVE FREE) 10 ML IV (08:39)
--- NOTE | 2024-12-16 08:39 | W.PN.HOSP.TC ---
Today's Communication/Plan
-
see bold
Assessment / Plan
Assessment / Plan
84y F with PMH significant for ASCVD, CHF and hypertension who presents to ED complaining of BRBPR. Patient states that she woke Wednesday AM and had an 'enormous' bowel movement. She denies any straining or any rectal / abdominal pain
associated with the bowel movement. Patient states that the stool was brown. When she wiped she noted bright red blood on the toilet paper and had drops of BRB dripping on the floor. Patient denies any lightheadedness, dizziness, chest pain or
dyspnea. She denies any prior h/o GI / rectal bleeding.
Patient called her PCP who recommended that she present to the ED. She remained at home and had dinner with her daughter in the evening.
Following dinner she had another, smaller bowel movement and again noted bright red blood on the toilet paper. She presented to the ED for further evaluation.
Patient takes Eliquis for CAD. Her last dose was Wednesday.
BRBPR exacerbated by Eliquis use
- History seems c/w hemorrhoids or rectal fissure given bleeding noted after particularly large BM.
- Since patient's hemoglobin has been stable, GI now recommends resuming aspirin and Eliquis
- Monitor tonight with resuming aspirin and Eliquis, discharge tomorrow if no recurrence of bleeding
Chronic normocytic anemia
- Hemoglobin stable, continue to trend
RLE Excoriations / Wounds
- Hold on further PO abx for now - has completed 1 week per patient.
- Continue wound care, follow-up with Wound Center as an outpatient.
ASCVD
- Stable. Continue carvedilol, statin, etc.
- Resume ASA / Eliquis
Chronic HFrecEF
- Stable. No gross evidence of volume overload at present.
- Hold diuretic acutely.
Benign Hypertension
- Stable. Continue carvedilol with holding parameters.
- Resumed lisinopril
Hypothyroidism
- Continue current T4 supplementation.
DVT Prophylaxis: eliquis
Code Status: Full
Total time spent to see the patient on the floor, examine the patient, review data and lab results, discuss treatment plan with patient, nursing staff around 38 minutes.
Physical Exam
General: Obese, no acute distress
HEENT: Normocephalic, Atraumatic, EOMI, MMM
Respiratory: Clear to Auscultation bilaterally
Cardiac: Normal S1/S2, Regular Rate and Rhythm
GI: Soft, Nontender, Nondistended, Normal Bowel Sounds
Extremities: No Clubbing, Cyanosis
Bilateral lower extremity edema with erythema suggestive of chronic venous stasis dermatitis
Neuro: Nonfocal/Grossly Intact
Anticipated Discharge: Within 24 hours
Subjective/Interval History
-
Date of Service: December 16, 2024
No more rectal bleeding. Patient denies chest pain, denies shortness of breath. No fever, no vomiting.
Objective Data
-
Labs:
Laboratory Results
12/16/24
05:55
WBC 7.6
Hgb 11.3 L
Hct 34.6 L
Plt Count 195
Vital Signs:
Vital Signs
Temp Pulse Resp BP Pulse Ox
98.8 F 70 16 136/69 92
12/16/24 03:45 12/16/24 03:45 12/16/24 03:45 12/16/24 03:45 12/16/24 03:45
I&O
12/15/24 12/16/24 12/17/24
06:59 06:59 06:59
Intake Total 1080 / 1080 960 / 960
Balance 1080 / 1080 960 / 960
[2024-12-16] MEDS: DESENEX/MITRAZOL/ZEASORB 1 APPLIC TOPICAL ×2 (08:40→21:11)
[2024-12-16] MEDS: TRIAMCINOLONE ACETONIDE 0.1% OINTMENT 1 APPLIC TOPICAL ×2 (08:41→20:55)
[2024-12-16] MEDS: HYDROPHOR 1 APPLIC TOPICAL (08:41)
[2024-12-16 11:00] VITALS: BP 128/52
--- NOTE | 2024-12-16 11:28 | W.PN.GI.CBS2 ---
Today's Communication / Plan
-
H/H stable and stools are now brown
Resumed eliquis today
Hold on inpatient colonoscopy given above she is agreeable.
Resumed regular diet
GI will sign off please call for ? or clinical picture changes
Assessment / Plan
-
Pt is an 84yo with hx [place], CAD with prior cardiac stenting and prior DVT on chronic Eliquis, colon polyps, CHF, cardiomyopathy, LE wounds, hyperlipidemia, hypothyroidism, Left BBB, prior nadeen presents to ER with bright red blood per rectum. She
reports large BM on Wednesday with brown stool then on wiping noted red blood on toilet paper and toilet with drops of blood dripping on floor. She saw more blood later in day prompting ER eval. Pt also admits to recent abx over last week. On
admission hbg 11.9, BUN 22. Last colonoscopy 2018 through [facility]. Pt recall hx polyp in past. Ct on admission with Prior cholecystectomy. Mild biliary tract dilatation likely the sequela of prior cholecystectomy. Suggest correlation with LFTs.
Limited evaluation of the intestinal tract without oral contrast, without intestinal obstruction or free air. Unremarkable appendix.Two small exophytic low-attenuation right renal lesions most likely representing simple cysts although the more
anterior lesion difficult to confirm. Recommend ultrasound for more complete evaluation. On admission hbg 11.9, BUN 22. rectal exam with brown stool no blood and hemorrhoids.
Impression
-bright red blood per rectum
resolved and H/H stable suspect hemorrhoids
-hx DVT/cardiac stent on Eliquis
-hx colon polyps last colonoscopy 2018
-renal lesions on CT
-LE wounds
-hx FL
- CAD with prior cardiac stenting
- CHF, cardiomyopathy
-hyperlipidemia
-hypothyroidism
- Left BBB
-prior nadeen with mild biliary dilation and normal LFT's
Plan
- Ok to resume eliquis today
- C/w anusol suppositories
- Resume regular diet
- Hold on colonoscopy given her improvement and stability. She is agreeable as she is apprehensive about doing the prep with her gait instability and advanced age
- If rectal bleeding returns please contact me
- She wanted to speak to case management about home services
GI will sign off please call for ? Will arrange OP GI follow up
Subjective
Subjective
Date of Service: December 16, 2024
She denies abd pain. Reports 2 normal brown BM yesterday. She feels less hemorrhoidal protrusion.
Objective
Data Reviewed
Laboratory Data:
Laboratory Results
12/16/24 05:55
12/15/24 07:24
Laboratory Results
Total Bilirubin 0.5 mg/dl (0.2-1.3) 12/13/24 18:46
AST 23 U/L (14-36) 12/13/24 18:46
ALT 19 U/L (0-35) 12/13/24 18:46
Alkaline Phosphatase 107 U/L (38-126) 12/13/24 18:46
Vital Signs and I&O:
Vital Signs
Temp Pulse Resp BP Pulse Ox
98.4 F 66 14 127/57 98
12/16/24 07:00 12/16/24 07:00 12/16/24 07:00 12/16/24 07:00 12/16/24 07:00
I&O
12/15/24 12/16/24 12/17/24
06:59 06:59 06:59
Intake Total 1080 / 1080 960 / 960
Balance 1080 / 1080 960 / 960
Physical Exam
Physical Exam
GEN: No acute distress, conversant, pleasant
HEENT: anicteric, extraocular movements intact, clear oropharynx without exudates
GI: soft, obese mildly -distended, not tender to palpation, normal active bowel sounds, no hepatosplenomegaly
EXT: warm, well perfused, 2+ edema bilaterally
NEURO: AAOx3, non-focal slowed gait
[2024-12-16] MEDS: ELIQUIS 2.5 MG PO ×2 (12:12→20:54)
--- NOTE | 2024-12-16 13:21 | CM ---
Patient to return to home when stable, patient is looking into private services at home through [facility], and has been set up with [facility] visiting nurses.
Daljit
[phone]
[2024-12-16 15:00] VITALS: BP 89/61
[2024-12-16] MEDS: ASPIR LOW (ENTERIC COATED) 81 MG PO (16:56)
[2024-12-16 19:52] VITALS: BP 137/61
[2024-12-16] MEDS: ANUSOL HC RECTAL ×2 (20:55)
[2024-12-16 23:30] VITALS: BP 113/42
[2024-12-17 03:34] VITALS: BP 110/61
[2024-12-17] MEDS: SYNTHROID 75 MCG PO (05:47)
[2024-12-17 06:00] VITALS: BMI 38.3
[2024-12-17 06:20] LABS: Hematocrit 34.8 % (37.0-47.0); Hemoglobin 11.2 g/dL (12.0-16.0); Mean Corp Hgb Conc. 32.2 g/dL (33.0-37.0); Mean Corpuscular Volume 90.2 fL (81.0-99.0); Platelet Count 189 10^3/uL (130-400); Red Cell Dist. Width 15.3 % (11.5-14.5)
[2024-12-17 07:00] VITALS: BP 150/64
[2024-12-17] MEDS: NSS (PRESERVATIVE FREE) 10 ML IV (08:55)
[2024-12-17] MEDS: COREG 3.125 MG PO ×2 (08:55→21:31)
[2024-12-17] MEDS: ANUSOL HC 25 MG RECTAL (08:55)
[2024-12-17] MEDS: ELIQUIS 2.5 MG PO ×2 (08:55→21:31)
[2024-12-17] MEDS: PROTONIX IV 40 MG IV (08:55)
[2024-12-17] MEDS: ASPIR LOW (ENTERIC COATED) 81 MG PO (08:55)
[2024-12-17] MEDS: MIRALAX PO (08:56)
[2024-12-17] MEDS: DESENEX/MITRAZOL/ZEASORB 1 APPLIC TOPICAL ×2 (08:56→21:33)
[2024-12-17] MEDS: TRIAMCINOLONE ACETONIDE 0.1% OINTMENT 1 APPLIC TOPICAL ×2 (08:56→21:32)
[2024-12-17] MEDS: HYDROPHOR 1 APPLIC TOPICAL (08:56)
--- NOTE | 2024-12-17 09:18 | W.PN.HOSP.TC ---
Today's Communication/Plan
-
Monitor overnight, discharge home with home care tomorrow if no recurrence of bleeding and hemoglobin is stable
Assessment / Plan
Assessment / Plan
84y F with PMH significant for ASCVD, CHF and hypertension who presents to ED complaining of BRBPR. Patient states that she woke Wednesday AM and had an 'enormous' bowel movement. She denies any straining or any rectal / abdominal pain
associated with the bowel movement. Patient states that the stool was brown. When she wiped she noted bright red blood on the toilet paper and had drops of BRB dripping on the floor. Patient denies any lightheadedness, dizziness, chest pain or
dyspnea. She denies any prior h/o GI / rectal bleeding.
Patient called her PCP who recommended that she present to the ED. She remained at home and had dinner with her daughter in the evening.
Following dinner she had another, smaller bowel movement and again noted bright red blood on the toilet paper. She presented to the ED for further evaluation.
Patient takes Eliquis for CAD. Her last dose was Wednesday AM.
BRBPR exacerbated by Eliquis use
- History seems c/w hemorrhoids or rectal fissure given bleeding noted after particularly large BM.
- Since patient's hemoglobin has been stable, GI now recommends outpatient colonoscopy, and resuming Eliquis and aspirin
- Eliquis and aspirin resumed 12/16 -no recurrence of bleeding
- Patient is concerned that she will have bleeding when she goes home, and is asking to be monitored another day
- Monitor overnight, discharge home with home care tomorrow if no recurrence of bleeding and hemoglobin is stable
Chronic normocytic anemia
- Hemoglobin stable, continue to trend
RLE Excoriations / Wounds
- Hold on further PO abx for now - has completed 1 week per patient.
- Continue wound care, follow-up with [facility]ound Center as an outpatient.
ASCVD
- Stable. Continue carvedilol, statin, etc.
- Resumed ASA / Eliquis
Chronic HFrecEF
- Stable. No gross evidence of volume overload at present.
- Hold diuretic acutely.
Benign Hypertension
- Stable. Continue carvedilol with holding parameters.
- Resumed lisinopril
Hypothyroidism
- Continue current T4 supplementation.
DVT Prophylaxis: eliquis
Code Status: Full
Total time spent to see the patient on the floor, examine the patient, review data and lab results, discuss treatment plan with patient, nursing staff around 39 minutes.
Physical Exam
General: Obese, no acute distress
HEENT: Normocephalic, Atraumatic, EOMI, MMM
Respiratory: Clear to Auscultation bilaterally
Cardiac: Normal S1/S2, Regular Rate and Rhythm
GI: Soft, Nontender, Nondistended, Normal Bowel Sounds
Extremities: No Clubbing, Cyanosis
Bilateral lower extremity edema with erythema suggestive of chronic venous stasis dermatitis
Neuro: Nonfocal/Grossly Intact
Anticipated Discharge: Within 24 hours
Subjective/Interval History
-
Date of Service: December 17, 2024
No more rectal bleeding. Patient had a stool that was brown. No chest pain, no shortness of breath. No fever, no vomiting.
Objective Data
-
Labs:
Laboratory Results
12/17/24
05:29
WBC 7.1
Hgb 11.2 L
Hct 34.8 L
Plt Count 189
Vital Signs:
Vital Signs
Temp Pulse Resp BP Pulse Ox
97.8 F 66 16 150/64 93
12/17/24 07:00 12/17/24 07:00 12/17/24 07:00 12/17/24 07:00 12/17/24 07:00
I&O
12/16/24 12/17/24 12/18/24
06:59 06:59 06:59
Intake Total 960 / 960 240 / 240
Balance 960 / 960 240 / 240
[2024-12-17 15:00] VITALS: BP 143/61
[2024-12-17] MEDS: ANUSOL HC RECTAL (21:31)
[2024-12-17 23:25] VITALS: BP 137/90
[2024-12-18 05:42] VITALS: BMI 38.3
[2024-12-18] MEDS: SYNTHROID 75 MCG PO (05:53)
[2024-12-18 07:00] VITALS: BP 129/60
[2024-12-18 08:57] LABS: Hematocrit 37.0 % (37.0-47.0); Hemoglobin 11.7 g/dL (12.0-16.0); Mean Corp Hgb Conc. 31.6 g/dL (33.0-37.0); Mean Corpuscular Volume 90.9 fL (81.0-99.0); Platelet Count 195 10^3/uL (130-400); Red Cell Dist. Width 15.4 % (11.5-14.5)
--- NOTE | 2024-12-18 09:47 | W.PN.HOSP.TC ---
Today's Communication/Plan
-
dc
Assessment / Plan
Assessment / Plan
84y F with PMH significant for ASCVD, CHF and hypertension who presents to ED complaining of BRBPR. Patient states that she woke Wednesday AM and had an 'enormous' bowel movement. She denies any straining or any rectal / abdominal pain
associated with the bowel movement. Patient states that the stool was brown. When she wiped she noted bright red blood on the toilet paper and had drops of BRB dripping on the floor. Patient denies any lightheadedness, dizziness, chest pain or
dyspnea. She denies any prior h/o GI / rectal bleeding.
Patient called her PCP who recommended that she present to the ED. She remained at home and had dinner with her daughter in the evening.
Following dinner she had another, smaller bowel movement and again noted bright red blood on the toilet paper. She presented to the ED for further evaluation.
Patient takes Eliquis for CAD. Her last dose was Wednesday.
BRBPR exacerbated by Eliquis use
- History seems c/w hemorrhoids or rectal fissure given bleeding noted after particularly large BM.
- Since patient's hemoglobin has been stable, GI now recommends outpatient colonoscopy, and resuming Eliquis and aspirin
- Eliquis and aspirin resumed 12/16 -no recurrence of bleeding
- Monitored overnight, no recurrence of bleeding and hemoglobin is stable
Chronic normocytic anemia
- Hemoglobin stable, continue to trend
RLE Excoriations / Wounds
- Hold on further PO abx for now - has completed 1 week per patient.
- Continue wound care, follow-up with [facility] as an outpatient.
ASCVD
- Stable. Continue carvedilol, statin, etc.
- Resumed ASA / Eliquis
Chronic HFrecEF
- Stable. No gross evidence of volume overload at present.
- Hold diuretic acutely.
Benign Hypertension
- Stable. Continue carvedilol with holding parameters.
- Resumed lisinopril
Hypothyroidism
- Continue current T4 supplementation.
DVT Prophylaxis: eliquis
Code Status: Full
Physical Exam
General: Obese, no acute distress
HEENT: Normocephalic, Atraumatic, EOMI, MMM
Respiratory: Clear to Auscultation bilaterally
Cardiac: Normal S1/S2, Regular Rate and Rhythm
GI: Soft, Nontender, Nondistended, Normal Bowel Sounds
Extremities: No Clubbing, Cyanosis
Bilateral lower extremity edema with erythema suggestive of chronic venous stasis dermatitis
Neuro: Nonfocal/Grossly Intact
Psych: calm
Total discharge time spent to see the patient on the floor, examine the patient, review data and lab results, discuss discharge plan with patient, nursing staff around 67 minutes.
Anticipated Discharge: Today
Subjective/Interval History
-
Date of Service: December 18, 2024
No chest pain
No sob
Objective Data
-
Labs:
Laboratory Results
12/18/24
08:25
WBC 7.4
Hgb 11.7 L
Hct 37.0
Plt Count 195
Vital Signs:
Vital Signs
Temp Pulse Resp BP Pulse Ox
98.4 F 66 20 129/60 93
12/18/24 07:00 12/18/24 07:00 12/18/24 07:00 12/18/24 07:00 12/18/24 07:00
I&O
12/17/24 12/18/24 12/19/24
06:59 06:59 06:59
Intake Total 240 / 240
Balance 240 / 240
[2024-12-18] MEDS: COREG 3.125 MG PO (10:18)
[2024-12-18] MEDS: ELIQUIS 2.5 MG PO (10:18)
[2024-12-18] MEDS: MIRALAX 17 GRAMS PO (10:18)
[2024-12-18] MEDS: NSS (PRESERVATIVE FREE) 10 ML IV (10:20)
[2024-12-18] MEDS: ASPIR LOW (ENTERIC COATED) 81 MG PO (10:20)
[2024-12-18] MEDS: PROTONIX IV 40 MG IV (10:21)
[2024-12-18] MEDS: ANUSOL HC 25 MG RECTAL (10:25)
[2024-12-18] MEDS: DESENEX/MITRAZOL/ZEASORB 1 APPLIC TOPICAL (10:33)
[2024-12-18] MEDS: TRIAMCINOLONE ACETONIDE 0.1% OINTMENT 1 APPLIC TOPICAL (10:39)
[2024-12-18] MEDS: HYDROPHOR 1 APPLIC TOPICAL (10:39)
--- NOTE | 2024-12-18 11:06 | CM ---
CM reviewed chart, patient seen bedside, for discharge today. Patient confirms daughter will provide transportation home. IMM verbally reviewed, provided with copy, placed in chart. Update to [facility] on discharge. CM will continue to follow for all
discharge planning needs.
Plan; home with [facility]
--- NOTE | 2024-12-18 11:54 | WOUNDNOTE ---
R POSTERIOR MEDIAL LOWER LEG
--- NOTE | 2024-12-18 11:55 | WOUNDNOTE ---
WON RN NOTE: Nurse changing dressing, assessed legs, R leg with scant drainage now, much less swelling. Teaching done with patient regarding wound care and updated discharge instructions. Will sign off, for discharge later today or tomorrow per
nurse.
--- NOTE | 2024-12-18 13:33 | W.DCSUMMARY ---
Discharge Summary
Discharge Data
Date of Admission: 12/14/24
Date of Discharge: 12/18/24
-
Pending Results: No
Hospital Course
84 years old female presented with rectal bleeding. It was noted to be bright red blood. Hemoglobin on admission 11.9. Patient was diagnosed with acute GI bleeding exacerbated by use of Eliquis/aspirin. Rectal examination revealed hemorrhoids.
CAT scan of the abdomen & pelvis did not show acute findings. Patient was evaluated by gastroenterology. Options included treating hemorrhoids and to monitor or to proceed with colonoscopy. Patient did not have nausea or vomiting or abdominal
pain. Patient had normal brown bowel movement in the hospital. Hemoglobin remained stable. Patient received Anusol suppositories. Rectal bleeding did not happen again. GI doctor discussed with the patient and they agreed to consider colonoscopy
as outpatient. Diet and Eliquis were resumed. Hemoglobin remained stable around 11.7. CAT scan showed 2 small exophytic low-attenuation right renal lesions consistent with cysts. Patient was advised to follow-up with a primary care doctor for
further images, patient was given a copy of CT report. Patient remained hemodynamically stable. She was evaluated by physical therapy and recommended home health services. import export manager was involved. Patient was discharged home in a stable
condition.
Discharge Plan
-
Patient Disposition: Home with Home Care
Discharge Diagnosis/Procedures: GI bleeding
You were seen by erecting engineer. Gastroenterology recommended outpatient colonoscopy. Hemoglobin stable after resuming aspirin and Plavix.
- CAT scan showed incidental finding of 2 small exophytic low-attenuation right renal lesions most likely representing simple cysts. Please follow-up with your primary care doctor for further imaging if needed.
Diet: As tolerated
Activity Restrictions/Additional Instructions:
Wound Care Instructions
RLE clean with Vashe wound cleanser or soap and water, Aquaphor ointment to dry skin le's, adaptic (add alginate after adaptic prn large amount of drainage), abd pad, secure with Kerlix, change daily and as needed for drainage. Once drainage stops
can stop dressing, continue to moisturize daily.
Triamcinolone ointment to L foot rash twice a day x 10 days.
Miconazole powder to abdominal/groin/breast folds bid. Tuck non woven gauze or ABD pad under abdominal folds.
Bilateral knee high Matty wraps as tolerated; rewrap daily.
Frequent LE elevation.
Pressure redistributing chair cushion (i.e. air chair cushion).
Follow up at wound care center call for an appointment.
Referrals:
Shahbaz Shepherd MD [Active, Gastroenterology]
Referral Note: 8 wks for BRBRP and mild anemia
Jarrett Jung CRNP [Family Provider, General] - in one to two weeks
Prescriptions:
New
polyethylene glycol 3350 17 gram Powder In Packet
17 g PO DAILY Qty: 30 0RF
hydrocortisone [Proctozone-HC] 2.5 % cream with perineal applicator
1 applic ID DAILY PRN (Reason: hemorrhoids) Qty: 30 0RF
Continued
levothyroxine 75 MCG tablet
75 mcg PO DAILY
multivitamin with folic acid [Tab-A-Marybeth] 1 TABLET tablet
1 tab PO MOWEFR@1800
carvedilol 3.125 MG tablet
3.125 mg PO BID
lisinopril 2.5 MG tablet
2.5 mg PO DAILY
oxycodone 5 mg Tablet
5 mg PO Q4HPRN PRN (Reason: mod-severe pain) Qty: 10 0RF
aspirin 81 MG tablet,delayed release (DR/EC)
81 mg PO DAILY Qty: 30 0RF
Eliquis 2.5 mg tablet
2.5 mg PO BID Qty: 60 0RF
Rx Instructions:
Start taking on 02/21/24
atorvastatin 80 mg Tablet
80 mg PO HS
furosemide 20 mg Tablet
20 mg PO BID
ezetimibe 10 mg Tablet
10 mg PO DAILY
cholecalciferol (vitamin D3) 25 mcg (1,000 unit) Tablet
25 mcg PO DAILY
PreserVision AREDS-2 250-90-40-1 mg Tablet,Chewable
1 tab PO QAM AND QPM
Discharge Orders:
Discharge Patient (As Directed); Ordered 12/18/24
Ordered By: Shahid Nguyen
Discharge Date and Time
Print Language: MAORI
--- NOTE | 2024-12-18 17:32 | PTCARENOTE ---
Pt for dc home with vn, called daughter, son in law to take home. Reviewed paperwork with son and daughter in law. Copy provided. Pt belongings from room taken by pt, escorted by staff via w/c to car where son is waiting.
== END 2024-12-18 15:00 | disposition home health service (06) | DRG 378 ==
LOC: 4 WEST ACU 04:29
PROVIDERS: Emergency Medicine; Family Medicine; Physician Assistant; ADMITTING PHYSICIAN Hospitalist; ATTENDING PHYSICIAN Internal Medicine; CONSULT PHYSICIAN Specialist; EMERGENCY PHYSICIAN Emergency Medicine; FAMILY PHYSICIAN Nurse Practitioner Family
DX: K92.2 Gastrointestinal hemorrhage, unspecified (principal); D68.32 Hemorrhagic disorder due to extrinsic circulating anticoagulants; I50.32 Chronic diastolic (congestive) heart failure; Z79.02 Long term (current) use of antithrombotics/antiplatelets; Z79.82 Long term (current) use of aspirin; Z79.890 Hormone replacement therapy; Z79.01 Long term (current) use of anticoagulants; I25.10 Atherosclerotic heart disease of native coronary artery without angina pectoris; I11.0 Hypertensive heart disease with heart failure; E03.9 Hypothyroidism, unspecified; E66.9 Obesity, unspecified; Z99.3 Dependence on wheelchair; Z95.5 Presence of coronary angioplasty implant and graft; Z87.891 Personal history of nicotine dependence; Z88.5 Allergy status to narcotic agent; Z79.899 Other long term (current) drug therapy; D64.9 Anemia, unspecified; E78.00 Pure hypercholesterolemia, unspecified; I25.2 Old myocardial infarction; I44.7 Left bundle-branch block, unspecified; K82.8 Other specified diseases of gallbladder; Z80.0 Family history of malignant neoplasm of digestive organs; Z80.1 Family history of malignant neoplasm of trachea, bronchus and lung; Z86.0100 Personal history of colon polyps, unspecified; Z86.718 Personal history of other venous thrombosis and embolism; Z90.49 Acquired absence of other specified parts of digestive tract
CPT/HCPCS: 74177; 80048; 80053; 85025; 85027; 86850; 86900; 86901; 87070; 97163; 97166; 97530; Q9967

== ENCOUNTER → 2024-12-25 12:31 | Outpatient (REF) | payer OTHER, SELFPAY | LOC: WOUND 12:31 | PROVIDERS: ATTENDING PHYSICIAN Surgery; FAMILY PHYSICIAN Nurse Practitioner Family | DX: I87.311 Chronic venous hypertension (idiopathic) with ulcer of right lower extremity (principal); L97.211 Non-pressure chronic ulcer of right calf limited to breakdown of skin; L97.311 Non-pressure chronic ulcer of right ankle limited to breakdown of skin; I87.2 Venous insufficiency (chronic) (peripheral); E66.01 Morbid (severe) obesity due to excess calories; I82.403 Acute embolism and thrombosis of unspecified deep veins of lower extremity, bilateral | CPT/HCPCS: 99213 ==

== ENCOUNTER → 2025-01-08 11:21 | Outpatient (REF) | payer OTHER, SELFPAY | LOC: WOUND 11:21 | PROVIDERS: ATTENDING PHYSICIAN Surgery; FAMILY PHYSICIAN Nurse Practitioner Family | DX: I87.311 Chronic venous hypertension (idiopathic) with ulcer of right lower extremity (principal); L97.211 Non-pressure chronic ulcer of right calf limited to breakdown of skin; L97.311 Non-pressure chronic ulcer of right ankle limited to breakdown of skin; I87.2 Venous insufficiency (chronic) (peripheral); E66.01 Morbid (severe) obesity due to excess calories; I82.403 Acute embolism and thrombosis of unspecified deep veins of lower extremity, bilateral | CPT/HCPCS: 99213 ==

== ENCOUNTER → 2025-01-22 13:05 | Outpatient (REF) | payer OTHER, SELFPAY | LOC: WOUND 13:05 | PROVIDERS: ATTENDING PHYSICIAN Surgery; FAMILY PHYSICIAN Nurse Practitioner Family | DX: I87.311 Chronic venous hypertension (idiopathic) with ulcer of right lower extremity (principal); L97.211 Non-pressure chronic ulcer of right calf limited to breakdown of skin; L97.311 Non-pressure chronic ulcer of right ankle limited to breakdown of skin; I89.0 Lymphedema, not elsewhere classified; I87.2 Venous insufficiency (chronic) (peripheral); E66.01 Morbid (severe) obesity due to excess calories; I82.403 Acute embolism and thrombosis of unspecified deep veins of lower extremity, bilateral | CPT/HCPCS: 99214 ==

== ENCOUNTER → 2025-02-05 10:56 | Outpatient (REF) | payer OTHER, SELFPAY | LOC: WOUND 10:56 | PROVIDERS: ATTENDING PHYSICIAN Surgery; FAMILY PHYSICIAN Nurse Practitioner Family | DX: I87.311 Chronic venous hypertension (idiopathic) with ulcer of right lower extremity (principal); L97.211 Non-pressure chronic ulcer of right calf limited to breakdown of skin; L97.311 Non-pressure chronic ulcer of right ankle limited to breakdown of skin; I89.0 Lymphedema, not elsewhere classified; I87.2 Venous insufficiency (chronic) (peripheral); E66.01 Morbid (severe) obesity due to excess calories; I82.403 Acute embolism and thrombosis of unspecified deep veins of lower extremity, bilateral | CPT/HCPCS: 99213 ==

== ENCOUNTER → 2025-02-19 11:00 | Outpatient (REF) | payer OTHER, SELFPAY | LOC: WOUND 11:00 | PROVIDERS: ATTENDING PHYSICIAN Surgery; FAMILY PHYSICIAN Nurse Practitioner Family | DX: I87.311 Chronic venous hypertension (idiopathic) with ulcer of right lower extremity (principal); L97.211 Non-pressure chronic ulcer of right calf limited to breakdown of skin; L97.311 Non-pressure chronic ulcer of right ankle limited to breakdown of skin; I89.0 Lymphedema, not elsewhere classified; I87.2 Venous insufficiency (chronic) (peripheral); E66.01 Morbid (severe) obesity due to excess calories; I82.403 Acute embolism and thrombosis of unspecified deep veins of lower extremity, bilateral | CPT/HCPCS: 99213 ==

== ENCOUNTER → 2025-03-05 11:06 | Outpatient (REF) | payer OTHER, SELFPAY | LOC: WOUND 11:06 | PROVIDERS: ATTENDING PHYSICIAN Surgery; FAMILY PHYSICIAN Nurse Practitioner Family | DX: I87.311 Chronic venous hypertension (idiopathic) with ulcer of right lower extremity (principal); L97.211 Non-pressure chronic ulcer of right calf limited to breakdown of skin; L97.311 Non-pressure chronic ulcer of right ankle limited to breakdown of skin; I89.0 Lymphedema, not elsewhere classified; I87.2 Venous insufficiency (chronic) (peripheral); E66.01 Morbid (severe) obesity due to excess calories; I82.403 Acute embolism and thrombosis of unspecified deep veins of lower extremity, bilateral | CPT/HCPCS: 99213 ==

== ENCOUNTER → 2025-03-26 13:09 | Outpatient (REF) | payer OTHER, SELFPAY | LOC: WOUND 13:09 | PROVIDERS: ATTENDING PHYSICIAN Surgery; FAMILY PHYSICIAN Nurse Practitioner Family | DX: I87.311 Chronic venous hypertension (idiopathic) with ulcer of right lower extremity (principal); L97.211 Non-pressure chronic ulcer of right calf limited to breakdown of skin; L97.311 Non-pressure chronic ulcer of right ankle limited to breakdown of skin; I89.0 Lymphedema, not elsewhere classified; I87.2 Venous insufficiency (chronic) (peripheral); E66.01 Morbid (severe) obesity due to excess calories; I82.403 Acute embolism and thrombosis of unspecified deep veins of lower extremity, bilateral | CPT/HCPCS: 99213 ==

== ENCOUNTER 2025-03-29 15:46 | Emergency (ER) | payer OTHER, SELFPAY ==
[2025-03-29 15:53] VITALS: BP 118/88
--- NOTE | 2025-03-29 16:46 | ED.GENMED ---
History of Present Illness
General
Chief Complaint: Nose Bleed
Source: patient
Time Seen by Provider: 03/29/25 16:36
History of Present Illness
History of Present Illness:
85-year-old female with past medical history of CHF, CAD status post previous ME, hypertension, hyperlipidemia, previous GI bleeding currently on both aspirin and a half dose of Eliquis twice daily presenting to the emergency department for
evaluation of a nosebleed that occurred earlier today lasting for about an hour, subsequently fully resolved at time of arrival to the patient states bleeding only occurred from the right nare. She applied light pressure to the area as well as a
cold beverage which she states finally got the bleeding under control. She denies any history of similar. Currently asymptomatic.
Past History
Past History
ED Past Medical History: CAD, CHF, HTN, ME, Hypothyroidism and Other (Knee pain)
ED Past Surgical History: Cardiac and Cholecystectomy
Social History
Tobacco: Former smoker
Alcohol: None
Drug: None
Personal:
Living: alone
Review of Systems
Review of Systems
All Other Systems: ROS reviewed and negative except as documented in HPI and ROS
Phy Exam
Physical Exam
Physical Exam:
GENERAL: Alert , in no apparent distress
HEAD: Normocephalic atraumatic
EYE: conjunctiva clear
NECK: Supple
ENT: o/p clr, mmm. dried blood to right nare, small area at anterior right septum where bleeding occurred but nothing active. no posterior bleeding
CARDIAC: Regular rate and rhythm
LUNGS: Clear breath sounds bilaterally, no acute respiratory distress, no wheezes/rales/rhonchi
NEUROLOGICAL: Alert and oriented
SKIN: Warm and dry, skin intact. no petechiae
MUSCULOSKELETAL: well perfused.
PSYCH: Normal and appropriate interaction.
Scores
Heart Failure Risk
Heart Failure Risk Score: Not Applicable
Heart Score for Chest Pain Patients
STEMI patient?: Not applicable
Withdrawal Assessment of Alcohol
Withdrawal Assessment Completed?: Not applicable
Course
Vital Signs
Initial and Last Documented VS:
Initial Vital Signs
Temp Pulse Resp BP Pulse Ox
97.6 F 79 20 118/88 97
03/29/25 15:53 03/29/25 15:53 03/29/25 15:53 03/29/25 15:53 03/29/25 15:53
Last Documented Vital Signs
Temp Pulse Resp BP Pulse Ox
97.6 F 79 20 118/88 97
03/29/25 15:53 03/29/25 15:53 03/29/25 15:53 03/29/25 15:53 03/29/25 16:47
MDM/Problems Addressed
Differential Diagnosis Includes:
Uncomplicated Epistaxis
Trauma
Anemia
URI
MDM/Problems Addressed:
85-year-old female presenting to the ER for evaluation of epistaxis that began earlier today and lasted for an hour, currently resolved. Patient in no acute distress. Hemodynamically stable. No active bleeding. Counseled patient on further
management if epistaxis continues when she gets home. Information for ENT provided for outpatient follow-up if patient so chooses. We did discuss the possibility of holding patient's anticoagulants for a 24-hour period however she did not feel
this. Otherwise stable for discharge home and aware of return precautions..
*Pulse Oximetry
SaO2: 97
Oxygen Mode of Delivery: Room air
Patient hypoxic: no
*Critical Care Note
Total Time (30-74mins, 75-104mins- exclusive of procedures): Not Applicable
ED Attending Note
-
Portions of this chart may have been created with voice recognition software.� Occasional wrong word or��sound alike� substitutions may have occurred due to the inherent limitations of voice recognition software.
Discharge Plan
Departure
Patient Disposition: Home (Routine Discharge)
Date of Disposition: 03/29/25
Time of Disposition: 16:46
Patient with high blood pressure during this ER visit?: No
Discharge Problem:
Epistaxis
Instructions: Nosebleeds (DC)
Prescriptions:
No Action
levothyroxine 75 MCG tablet
75 mcg PO DAILY
multivitamin with folic acid [Tab-A-Marybeth] 1 TABLET tablet
1 tab PO MOWEFR@1800
carvedilol 3.125 MG tablet
3.125 mg PO BID
lisinopril 2.5 MG tablet
2.5 mg PO DAILY
oxycodone 5 mg Tablet
5 mg PO Q4HPRN PRN (Reason: mod-severe pain) Qty: 10 0RF
aspirin 81 MG tablet,delayed release (DR/EC)
81 mg PO DAILY Qty: 30 0RF
Eliquis 2.5 mg tablet
2.5 mg PO BID Qty: 60 0RF
Rx Instructions:
Start taking on 02/21/24
atorvastatin 80 mg Tablet
80 mg PO HS
furosemide 20 mg Tablet
20 mg PO BID
ezetimibe 10 mg Tablet
10 mg PO DAILY
cholecalciferol (vitamin D3) 25 mcg (1,000 unit) Tablet
25 mcg PO DAILY
PreserVision AREDS-2 250-90-40-1 mg Tablet,Chewable
1 tab PO QAM AND QPM
polyethylene glycol 3350 17 gram Powder In Packet
17 g PO DAILY Qty: 30 0RF
hydrocortisone [Proctozone-HC] 2.5 % cream with perineal applicator
1 applic MO DAILY PRN (Reason: hemorrhoids) Qty: 30 0RF
Referrals:
Anthony Holman MD [Active, Otology]
Interventions
Interventions:
*Risk Screen - Suicide Last Done: 03/29/25 15:58
*Neglect/Abuse Screening Last Done: 03/29/25 15:58
*ED COVID-19 Vaccine History Last Done: 03/29/25 16:38
*ED Influenza Vaccine History Last Done: 03/29/25 16:38
Discharge Date and Time
Print Language: SETSWANA
[2025-03-29 19:50] VITALS: BP 104/62
== END 2025-03-29 20:41 | disposition home or self-care (01) ==
LOC: EMR 15:46
PROVIDERS: EMERGENCY PHYSICIAN Emergency Medicine; FAMILY PHYSICIAN Nurse Practitioner Family
DX: R04.0 Epistaxis (principal); I25.10 Atherosclerotic heart disease of native coronary artery without angina pectoris; I11.0 Hypertensive heart disease with heart failure; I50.9 Heart failure, unspecified; E78.5 Hyperlipidemia, unspecified; I25.2 Old myocardial infarction; E03.9 Hypothyroidism, unspecified; Z79.82 Long term (current) use of aspirin; Z79.01 Long term (current) use of anticoagulants; Z87.891 Personal history of nicotine dependence
CPT/HCPCS: 99283

== ENCOUNTER 2025-04-16 13:45 | Outpatient (REF) | payer OTHER, SELFPAY | END 2025-04-16 23:59 | disposition home or self-care (01) | LOC: WOUND 13:45 | PROVIDERS: ATTENDING PHYSICIAN Surgery; FAMILY PHYSICIAN Nurse Practitioner Family | DX: I87.311 Chronic venous hypertension (idiopathic) with ulcer of right lower extremity (principal); L97.211 Non-pressure chronic ulcer of right calf limited to breakdown of skin; L97.311 Non-pressure chronic ulcer of right ankle limited to breakdown of skin; I89.0 Lymphedema, not elsewhere classified; I87.2 Venous insufficiency (chronic) (peripheral); E66.01 Morbid (severe) obesity due to excess calories; I82.403 Acute embolism and thrombosis of unspecified deep veins of lower extremity, bilateral | CPT/HCPCS: 99213 ==

== ENCOUNTER 2025-05-10 10:51 | Outpatient (REF) | payer OTHER, SELFPAY | END 2025-05-10 23:59 | disposition home or self-care (01) | LOC: WOUND 10:51 | PROVIDERS: ATTENDING PHYSICIAN Registered Nurse; FAMILY PHYSICIAN Nurse Practitioner Family | DX: I87.311 Chronic venous hypertension (idiopathic) with ulcer of right lower extremity (principal); L97.211 Non-pressure chronic ulcer of right calf limited to breakdown of skin; I89.0 Lymphedema, not elsewhere classified; I87.2 Venous insufficiency (chronic) (peripheral); E66.01 Morbid (severe) obesity due to excess calories; I82.403 Acute embolism and thrombosis of unspecified deep veins of lower extremity, bilateral | CPT/HCPCS: 99213 ==

== ENCOUNTER 2025-05-17 10:24 | Outpatient (REF) | payer OTHER, SELFPAY | END 2025-05-17 23:59 | disposition home or self-care (01) | LOC: WOUND 10:24 | PROVIDERS: ATTENDING PHYSICIAN Registered Nurse; FAMILY PHYSICIAN Nurse Practitioner Family | DX: I87.311 Chronic venous hypertension (idiopathic) with ulcer of right lower extremity (principal); L97.211 Non-pressure chronic ulcer of right calf limited to breakdown of skin; L97.311 Non-pressure chronic ulcer of right ankle limited to breakdown of skin; I89.0 Lymphedema, not elsewhere classified; I87.2 Venous insufficiency (chronic) (peripheral); E66.01 Morbid (severe) obesity due to excess calories; I82.403 Acute embolism and thrombosis of unspecified deep veins of lower extremity, bilateral | CPT/HCPCS: 99213 ==

== ENCOUNTER 2025-05-28 13:39 | Outpatient (REF) | payer OTHER, SELFPAY | END 2025-05-28 23:59 | disposition home or self-care (01) | LOC: WOUND 13:39 | PROVIDERS: ATTENDING PHYSICIAN Registered Nurse; FAMILY PHYSICIAN Nurse Practitioner Family | DX: I87.311 Chronic venous hypertension (idiopathic) with ulcer of right lower extremity (principal); L97.211 Non-pressure chronic ulcer of right calf limited to breakdown of skin; L97.311 Non-pressure chronic ulcer of right ankle limited to breakdown of skin; I89.0 Lymphedema, not elsewhere classified; I87.2 Venous insufficiency (chronic) (peripheral); E66.01 Morbid (severe) obesity due to excess calories; I82.403 Acute embolism and thrombosis of unspecified deep veins of lower extremity, bilateral | CPT/HCPCS: 99213 ==

== ENCOUNTER → 2025-05-29 13:07 | Outpatient (REF) | payer OTHER, SELFPAY | LOC: HWRAD 13:07 | PROVIDERS: ATTENDING PHYSICIAN Nurse Practitioner Family | DX: Z09 Encounter for follow-up examination after completed treatment for conditions other than malignant neoplasm (principal); N28.1 Cyst of kidney, acquired | CPT/HCPCS: 76770 ==

== ENCOUNTER 2025-05-30 06:25 | Outpatient (RCR) | payer OTHER, SELFPAY | END 2025-05-30 23:59 | disposition home or self-care (01) | LOC: RPT 06:25 | PROVIDERS: ATTENDING PHYSICIAN Family Medicine; FAMILY PHYSICIAN Nurse Practitioner Family | DX: I89.0 Lymphedema, not elsewhere classified (principal); Z73.6 Limitation of activities due to disability; R26.89 Other abnormalities of gait and mobility; M79.605 Pain in left leg; M79.604 Pain in right leg | CPT/HCPCS: 97163; 97530 ==